=== PATIENT | male | born 1935 | race Caucasian/White ===

== ENCOUNTER 2018-04-03 15:26 | Outpatient (CLI) | payer OTHER ==
--- NOTE | 2018-04-06 09:19 | Ultrasound Report ---
EXAM: RENAL ULTRASOUND EXAM DATE: 04/03/2018 05:06 PM. CLINICAL HISTORY: History of bladder outlet obstruction, stage G3B chronic kidney disease. COMPARISON: 09/17/2017. TECHNIQUE: Real-time scanning was performed with static images obtained. FINDINGS: Right Kidney: 9.5 x 3.5 x 4.1 cm. Increased renal echotexture. No hydronephrosis. Arising from the an terior right kidney is a 6 x 5.3 x 5.4 cm exophytic cyst. No renal calculi. Smaller lower pole 1.3 x 1.1 cm cyst is also present as well as a smaller cyst measuring 0.8 x 0.8 cm in the mid lower pole. N o solid renal masses. Left Kidney: 10.4 x 4.7 x 4.0 cm. Increase in echotexture. No hydronephrosis. Several cysts are seen in the left kidney, the largest in the mid left kidney measuring 0.9 x 0.8 x 0.7 cm and 0.7 x 0.5 cm. Several echogenic foci are seen in the left kidney possibly nonobstructing calculi or parenchymal ca lcifications. No solid renal masses are definitively seen. Extrarenal pelvis is seen on the left. Incidentally noted in the right lobe of the liver are several cysts, the largest of which appears com plex with septations measuring up to 3.4 cm. Bladder: Bilateral jets seen. The prevoid bladder volume was 165.8 cc. The postvoid bladder volume wa s 104 cc. Other: Prostate gland is present with a total volume of 76.4 cc with numerous calcifications. There m ay be a diverticulum along the left posterior bladder, a hypoechoic structure communicating measuring 3.1 x 1.0 x 3.5 cm versus a distal prominent left ureter. In addition, a lobular area measuring 3.6 x 2.2 cm is seen on the right along the cephalad margins of the prostate gland and base of the urinar y bladder and extending into the urinary bladder. This may represent extent of the prostate gland or a separate bladder mass. IMPRESSION: 1. Increase in renal echotexture bilaterally typically seen with underlying medical renal disease. No hydronephrosis. 2. Bilateral renal cysts, the largest in the right kidney measuring 6 cm. 3. Left renal calculi versus parenchymal calcifications. 4. Small to moderate post void urinary bladder volume residual. 5. 3.6 cm lobular soft tissue structure along the right base of the urinary bladder, which may repres ent extent of the prostate gland into the base of the urinary bladder, prostate gland mass versus uri nary bladder mass. Dedicated cystoscopy or CT IVP recommended for further detail. 6. Prostate gland enlargement. [facility] Referring Provider Line: [phone] SITE ID: [id number]
== END 2018-04-03 15:27 | disposition home or self-care (01) ==
LOC: DI 15:26
PROVIDERS: ATTEND Internal Medicine Nephrology
DX: N18.3 Chronic kidney disease, stage 3 (moderate) (principal); Q61.02 Congenital multiple renal cysts
CPT/HCPCS: 76770

== ENCOUNTER 2019-01-27 10:48 | Inpatient (IN) | payer MEDICARE, OTHER ==
[2019-01-27] MEDS ORDERED: SODIUM CHLORIDE FLUSH 0.9% 10 ML SYRINGE IVP PRN (10:55)
[2019-01-27] MEDS ORDERED: ONDANSETRON 4 MG/2 ML VIAL IVP PRN (10:55)
[2019-01-27] MEDS ORDERED: ACETAMINOPHEN 325 MG TABLET PO PRN (10:55)
[2019-01-27 13:39] LABS: BASOPHILS % (AUTO) 0.6 %; EOSINOPHILS # (AUTO) 0.2 10^3/uL (0.0-0.7); EOSINOPHILS % (AUTO) 4.9 %; HGB - HEMOGLOBIN 7.3 g/dL (14.0-18.0); LYMPHOCYTES # (AUTO) 0.7 10^3/uL (1.5-3.5); MEAN CORPUSCULAR HEMOGLOBIN 36.2 pg (27.0-31.0); MEAN CORPUSCULAR HGB CONC 34.4 g/dL (32.0-36.0); MEAN CORPUSCULAR VOLUME 105.1 fL (80.0-94.0); MONOCYTES # (AUTO) 0.3 10^3/uL (0.0-1.0); MONOCYTES % (AUTO) 8.7 %; NEUTROPHILS # (AUTO) 2.4 10^3/uL (1.5-6.6); NEUTROPHILS % (AUTO) 66.8 %; PLT - PLATELET COUNT 194 10^3/uL (130-450); RED BLOOD COUNT 2.02 10^6/uL (4.70-6.10); RED CELL DISTRIBUTION WIDTH 14.6 % (12.0-15.0); WHITE BLOOD COUNT 3.6 x10^3/uL (4.8-10.8)
[2019-01-27 13:51] LABS: ALBUMIN 3.7 g/dL (3.2-5.5); ALBUMIN/GLOBULIN RATIO 1.6 (1.0-2.2); BILIRUBIN,TOTAL 0.8 mg/dL (0.2-1.0); CALCIUM 9.2 mg/dL (8.5-10.3); CREATININE 2.2 mg/dL (0.6-1.2)
--- NOTE | 2019-01-27 14:02 | HISTORY & PHYSICAL EXAMINATION ---
Chief Complaint - Chief Complaint Chief Complaint: black stool History of Present Illness - Admitted From Admitted From:: directly from Dr. Melton's office - History of Present Illness HPI Comment/Other: is 83-yrs-old male with a PMH history of GI bleeding, HTN, CKD, kidney stone, who present ER complain of black stool. Pt report he had about 5 days black stool. he report he tried as possible to avoid to see any doctor for his whole life. He report except his sleep pill he did not take any meds, no Ibuprofen, no ASA, no blood thinner. He report he did drink 3 cups of alcohol daily. He report he never smokes cigarette in his whole life. He denies abdominal pain, nausea, vomiting or diarrhea. He denies chest pain, shortness of breath, pre-syncope or syncope, dizziness, shortness of breath. Pt state " I do not feel bad at all, it is my primary care doctor send me to here." he state because of his black stool, he visited his PCP Dr. Melton. Then Dr. Melton directly sent him to here. REENTTA elizabeth, Dr. Willis, is notified. Dr. Willis would like pt is NPO now. Pt may have EGD today. Pt request DNR for his code status. History - Past Medical History Cardiovascular: reports: Hypertension GI: reports: GI bleed : reports: Kidney stones - Past Surgical History General: reports: Colonoscopy - Family & Social History Social History Notes: pt report he drink alcohol daily, denies cigarette smoking or drug abuse. Meds/Allgy - Home Medications Home Medications: Ambulatory Orders Medication Instructions Recorded Confirmed Zolpidem [Ambien] 5 mg PO HS PRN 01/27/19 01/27/19 - Allergies Allergies/Adverse Reactions: Allergies Allergy/AdvReac Type Severity Reaction Status Date / Time Penicillins Allergy Unknown Verified 09/08/14 07:36 Review of Systems - Constitutional Constitutional: denies: Fatigue, Fever, Chills, Malaise, Weakness, Poor appetite, Diaphoresis, Night sweats - Eyes Eyes: denies: Pain, Irritation, Amaurosis, Blurred vision, Spots in vision, Field loss, Vision loss, Dipolpia - Ears, Nose & Throat Ears, Nose & Throat: denies: Ear pain, Hearing loss, Hearing aids, Vertigo, Nasal pain, Nasal discharge, Nosebleeds, Nasal congestion, Dentures, Sore throat, Hoarseness, Mouth lesions, Bleeding gums - Cardiovascular Cariovascular: denies: Irregular heart rate, Palpitations, Chest pain, Edema, Lightheadedness, Syncope, Exertional dyspnea, Decr. exercise tolerance - Respiratory Respiratory: denies: Cough, Sputum production, Wheezing, Snoring, Hemoptysis, Orthopnea, SOB at rest, SOB with exertion - Gastrointestinal Gastrointestinal: reports: Black stools. denies: Abdominal pain, Abdominal distention, Diarrhea, Change in bowel habits, Rectal bleeding, Bloody stools, Nausea, Vomiting, Bile emesis, [place] blood emesis, Coffee grounds emesis, Reflux/heartburn, Bloating, Poor appetite - Genitourinary Genitourinary: denies: Dysuria, Frequency, Urgency, Hematuria, Incontinence, Flank pain, Nocturia, Urethral discharge - Musculoskeletal Musculoskeletal: denies: Muscle pain, Back pain, Muscle aches, Stiffness, Limited range of motion, Muscle weakness, Gout, Joint pain - Integumentary Integumentary: denies: Rash, Pruritis, Lesions, Dryness, Lumps, Acne, Pigment changes, Nail changes - Neurological Neurological: denies: General weakness, Focal weakness, Headache, Dizziness, Numbness, Memory problems, Pre-existing deficit, Abnormal gait, Seizures, Incoordination, Slurred speech - Psychiatric Psychiatric: denies: Depression, Anxiety, Suicidal, Delusions, Hallucinations, Homicidal - Endocrine Endocrine: denies: Polyuria, Polydypsia, Polyphagia, Intolerance to cold - Hematologic/Lymphatic Hematologic/Lymphatic: denies: Anemia, Bruising, Petechiae, Blood clots, Lymphadenopathy, Bleeding tendencies, Recurrent infections Prior Level of Functionality: pt is living alone and independent Exam - Vital Signs Reviewed Vital Signs: Yes Vital Signs: Vital Signs x48h Temp Pulse Resp BP Pulse Ox 01/27/19 13:33 37.5 C 100 18 135/77 H 100 - Physical Exam General Appearance: positive: No acute distress, Alert. negative: Lethargic Eyes Bilateral: positive: Normal inspection, PERRL, No lid inflammation, Conjunctivae nml ENT: positive: ENT inspection nml, Pharynx nml, No signs of dehydration. negative: Purulent nasal drainage, Pharyngeal erythema, Oral lesions Neck: positive: Nml inspection, Thyroid nml, No JVD, Trachea midline. negative: Thyromegaly, Lymphadenopathy (R), Lymphadenopathy (L), Stiff neck, Swelling/bruising, Tracheal deviation Respiratory: positive: Chest non-tender, No respiratory distress, Breath sounds nml. negative: Wheezes, Rales, Rhonchi Cardiovascular: positive: Regular rate & rhythm, No murmur, No gallop. negative: Irregularly irregular, Extrasystoles, Tachycardia, Bradycardia, JVD present, Systolic murmur, Diastolic murmur Peripheral Pulses: positive: 2+ Abdomen: positive: Non-tender, No organomegaly, Nml bowel sounds, No distention. negative: Tenderness, Guarding, Rebound Back: positive: Nml inspection. negative: CVA tenderness (R), CVA tenderness (L) Skin: positive: Color nml, No rash, Warm, Dry. negative: Cyanosis, Diaphoresis, Pallor Extremities: positive: Non-tender, Full ROM, Nml appearance. negative: Calf tenderness, Joint swelling, Flaquito's sign/cords Neurologic/Psychiatric: positive: Oriented x3, Sensation nml, Mood/affect nml. negative: Weakness, Sensory loss, Facial droop, Slurred/abnml speech, Depressed mood/affect Sepsis Event Note (H) - Evaluation Current Stage of Sepsis: Ruled out Conclusion/Plan - Problem List (1) Black stool Conclusion/Plan: pt report black stool for 5 days, pt's HGB is 7.3 from previous 14 at 2014. consult with GI surgeon, pt may EGD done today afternoon per surgeon, will followup NPO and IVF of NS now (2) Anemia Conclusion/Plan: pt has HGB 7.3, it is likely from his acute blood loss. pt seems asymptomatic of anemia. cross match, transfusion of blood as needed H&H to check HGB status (3) Renal insufficiency Conclusion/Plan: today pt's creatinine is 2.2, stage 4. pt has hx of renal insufficiency IVF of NS gently lab monitor (4) Dehydration Conclusion/Plan: pt present hydration, dry mouth IVF of D5 1/2 NS continue lab monitor (5) HTN (hypertension) Conclusion/Plan: pt has hx of HTN, but now he is no home BP medications. stable now. vital monitor (6) Do not intubate, cardiopulmonary resuscitation (CPR)-only code status Conclusion/Plan: pt clear state he will choose DNR - Lab Results Fish Bones: 01/27/19 13:20 01/27/19 13:20 Core Measures - Anticipated LOS I expect patient to be DC'd or transferred within 96 hours.: Yes - DVT/VTE - Prophylaxis VTE/DVT Device ordered at admit?: Yes VTE/DVT Prophylaxis med ordered at admit?: Yes
[2019-01-27] MEDS: SODIUM CHLORIDE FLUSH 0.9% 10 ML SYRINGE IVP SCH ×3 (14:26→21:48)
[2019-01-27] MEDS: PANTOPRAZOLE 40 MG VIAL IVP SCH ×2 (14:28→21:48)
[2019-01-27] MEDS: DEXTROSE 5%-0.45% NACL 1,000 ML IV SCH (14:31)
[2019-01-27 20:23] LABS: HGB - HEMOGLOBIN 7.1 g/dL (14.0-18.0)
[2019-01-27] MEDS: ZOLPIDEM 5 MG TABLET PO PRN (23:52)
[2019-01-28] MEDS: DEXTROSE 5%-0.45% NACL 1,000 ML IV SCH (00:19)
[2019-01-28 05:59] LABS: BASOPHILS % (AUTO) 0.6 %; EOSINOPHILS # (AUTO) 0.2 10^3/uL (0.0-0.7); EOSINOPHILS % (AUTO) 8.5 %; LYMPHOCYTES # (AUTO) 0.6 10^3/uL (1.5-3.5); LYMPHOCYTES % (AUTO) 23.3 %; MEAN CORPUSCULAR HEMOGLOBIN 36.2 pg (27.0-31.0); MEAN CORPUSCULAR HGB CONC 33.9 g/dL (32.0-36.0); MEAN CORPUSCULAR VOLUME 106.7 fL (80.0-94.0); MEAN PLATELET VOLUME 8.3 fL (7.4-11.4); MONOCYTES # (AUTO) 0.3 10^3/uL (0.0-1.0); MONOCYTES % (AUTO) 9.8 %; NEUTROPHILS # (AUTO) 1.6 10^3/uL (1.5-6.6); NEUTROPHILS % (AUTO) 57.8 %; PLT - PLATELET COUNT 181 10^3/uL (130-450); RED BLOOD COUNT 1.75 10^6/uL (4.70-6.10); RED CELL DISTRIBUTION WIDTH 15.2 % (12.0-15.0); WHITE BLOOD COUNT 2.8 x10^3/uL (4.8-10.8)
[2019-01-28 06:16] LABS: HGB - HEMOGLOBIN 6.3 g/dL (14.0-18.0)
[2019-01-28 06:34] LABS: ALBUMIN 3.3 g/dL (3.2-5.5); ALBUMIN/GLOBULIN RATIO 1.6 (1.0-2.2); BILIRUBIN,TOTAL 0.8 mg/dL (0.2-1.0); CALCIUM 8.5 mg/dL (8.5-10.3); CREATININE 2.3 mg/dL (0.6-1.2); PLATELET ESTIMATE, MANUAL NORMAL (130-450,000) (NORMAL); TOTAL PROTEIN 5.4 g/dL (6.7-8.2)
[2019-01-28] MEDS: THIAMINE 100 MG TABLET PO SCH (08:24)
[2019-01-28] MEDS: PRENATAL VITAMIN TABLET PO SCH (08:24)
[2019-01-28] MEDS: SODIUM CHLORIDE FLUSH 0.9% 10 ML SYRINGE IVP SCH ×3 (08:24→23:45)
[2019-01-28] MEDS: PANTOPRAZOLE 40 MG VIAL IVP SCH ×2 (08:24→21:28)
[2019-01-28] MEDS: POLYETHYLENE GLYCOL 3350 17 GM PACKET PO SCH (08:33)
--- NOTE | 2019-01-28 09:13 | CONSULTATION NOTE ---
Referring Provider Consult Date: 01/27/19 Chief Complaint - Chief Complaint Chief Complaint: melena History of Present Illness - History of Present Illness HPI Comment/Other: 83 yo man complaining of 1 week of melena, fatigue, weakness. Drinks daily. Normal colonoscopy 1-2 years ago. Never EGD. History - Past Medical History Cardiovascular: reports: Hypertension GI: reports: GI bleed : reports: Kidney stones - Past Surgical History General: reports: Colonoscopy - Family & Social History Social History Notes: pt report he drink alcohol daily, denies cigarette smoking or drug abuse. Meds/Allgy - Home Medications Home Medications: Ambulatory Orders Medication Instructions Recorded Confirmed Zolpidem [Ambien] 5 mg PO HS PRN 01/27/19 01/27/19 - Allergies Allergies/Adverse Reactions: Allergies Allergy/AdvReac Type Severity Reaction Status Date / Time Penicillins Allergy Unknown Verified 09/08/14 07:36 Review of Systems - Constitutional Constitutional: reports: Fatigue - Gastrointestinal Gastrointestinal: reports: Black stools Exam - Vital Signs Vital Signs: Vital Signs x48h Temp Pulse Pulse Resp BP BP Pulse Ox 01/28/19 09:06 36.7 C 85 18 115/63 01/28/19 08:56 36.7 C 85 18 115/63 96 01/28/19 08:30 36.9 C 96 19 114/73 99 01/28/19 04:18 36.7 C 87 17 122/65 100 - Physical Exam General Appearance: positive: No acute distress Eyes Bilateral: positive: Normal inspection ENT: positive: ENT inspection nml Respiratory: positive: Chest non-tender Back: positive: Nml inspection Skin: positive: Color nml Conclusion/Plan - Diagnosis Diagnosis: GIB - Plan Plan: Counselled pt to have an EGD to look for source of bleeding. He is hesitant to have a procedure and would rather wait to see a trend in H/Hs to see if he is still bleeding. - Lab Results Fish Bones: 01/28/19 05:25 01/28/19 05:25
--- NOTE | 2019-01-28 09:15 | PROVIDER PROGRESS NOTE ---
Subjective - Prog Note Date Prog Note Date: 01/28/19 Prog Note Time: 09:13 - Subjective Pt reports feeling: No change (Pt had another melenotic BM overnight.) Objective - Vital Signs/Intake & Output Vital Signs: Vital Signs x48h Temp Pulse Pulse Resp BP BP Pulse Ox 01/28/19 09:06 36.7 C 85 18 115/63 01/28/19 08:56 36.7 C 85 18 115/63 96 01/28/19 08:30 36.9 C 96 19 114/73 99 01/28/19 04:18 36.7 C 87 17 122/65 100 Intake & Output: Intake & Output 01/25/19 01/26/19 01/27/19 01/28/19 23:59 23:59 23:59 23:59 Intake Total 800 1230 Balance 800 1230 - Objective General Appearance: positive: No acute distress Eyes Bilateral: positive: Normal inspection ENT: positive: ENT inspection nml Neck: positive: Nml inspection Respiratory: positive: Chest non-tender Abdomen: positive: Non-tender Back: positive: Nml inspection - Lab Results Fish Bones: 01/28/19 05:25 01/28/19 05:25 Other Labs: Lab Results x24hrs 01/28/19 01/28/19 01/28/19 Range/Units 05:25 05:25 05:25 WBC 2.8 L (4.8-10.8) x10^3/uL RBC 1.75 L (4.70-6.10) 10^6/uL Hgb 6.3 L* (14.0-18.0) g/dL Hct 18.7 L* (42.0-52.0) % MCV 106.7 H (80.0-94.0) fL MCH 36.2 H (27.0-31.0) pg MCHC 33.9 (32.0-36.0) g/dL RDW 15.2 H (12.0-15.0) % Plt Count 181 (130-450) 10^3/uL MPV 8.3 (7.4-11.4) fL Neut # (Auto) 1.6 (1.5-6.6) 10^3/uL Lymph # (Auto) 0.6 L (1.5-3.5) 10^3/uL [place] # (Auto) 0.3 (0.0-1.0) 10^3/uL Eos # (Auto) 0.2 (0.0-0.7) 10^3/uL Baso # (Auto) 0.0 (0.0-0.1) 10^3/uL Absolute Nucleated RBC 0.00 x10^3/uL Nucleated RBC % 0.1 /100WBC Manual Slide Review Indicated Platelet Estimate NORMAL (130-450,000) (NORMAL) RBC Morph Micro Appear 1+ MACROCYTOSIS (NORMAL) Sodium 135 (135-145) mmol/L Potassium 3.4 L (3.5-5.0) mmol/L Chloride 109 (101-111) mmol/L Carbon Dioxide 19 L (21-32) mmol/L Anion Gap 7.0 (6-13) BUN 42 H (6-20) mg/dL Creatinine 2.3 H (0.6-1.2) mg/dL Estimated GFR (MDRD) 27 L (>89) Glucose 112 H (70-100) mg/dL Calcium 8.5 (8.5-10.3) mg/dL Magnesium (1.7-2.8) mg/dL Total Bilirubin 0.8 (0.2-1.0) mg/dL AST 25 (10-42) IU/L ALT 27 (10-60) IU/L Alkaline Phosphatase 32 L (42-121) IU/L Troponin I (<0.49) ng/mL Total Protein 5.4 L (6.7-8.2) g/dL Albumin 3.3 (3.2-5.5) g/dL Globulin 2.1 (2.1-4.2) g/dL Albumin/Globulin Ratio 1.6 (1.0-2.2) TSH 3.16 (0.34-5.60) uIU/mL Blood Type Antibody Screen Crossmatch IS Only 01/27/19 01/27/19 01/27/19 Range/Units 20:17 13:20 13:20 WBC (4.8-10.8) x10^3/uL RBC (4.70-6.10) 10^6/uL Hgb 7.1 L (14.0-18.0) g/dL Hct 20.4 L (42.0-52.0) % MCV (80.0-94.0) fL MCH (27.0-31.0) pg MCHC (32.0-36.0) g/dL RDW (12.0-15.0) % Plt Count (130-450) 10^3/uL MPV (7.4-11.4) fL Neut # (Auto) (1.5-6.6) 10^3/uL Lymph # (Auto) (1.5-3.5) 10^3/uL [place] # (Auto) (0.0-1.0) 10^3/uL Eos # (Auto) (0.0-0.7) 10^3/uL Baso # (Auto) (0.0-0.1) 10^3/uL Absolute Nucleated RBC x10^3/uL Nucleated RBC % /100WBC Manual Slide Review Platelet Estimate (NORMAL) RBC Morph Micro Appear (NORMAL) Sodium (135-145) mmol/L Potassium (3.5-5.0) mmol/L Chloride (101-111) mmol/L Carbon Dioxide (21-32) mmol/L Anion Gap (6-13) BUN (6-20) mg/dL Creatinine (0.6-1.2) mg/dL Estimated GFR (MDRD) (>89) Glucose (70-100) mg/dL Calcium (8.5-10.3) mg/dL Magnesium (1.7-2.8) mg/dL Total Bilirubin (0.2-1.0) mg/dL AST (10-42) IU/L ALT (10-60) IU/L Alkaline Phosphatase (42-121) IU/L Troponin I < 0.04 (<0.49) ng/mL Total Protein (6.7-8.2) g/dL Albumin (3.2-5.5) g/dL Globulin (2.1-4.2) g/dL Albumin/Globulin Ratio (1.0-2.2) TSH (0.34-5.60) uIU/mL Blood Type O POSITIVE Antibody Screen NEGATIVE Crossmatch IS Only See Detail 01/27/19 01/27/19 Range/Units 13:20 13:20 WBC 3.6 L (4.8-10.8) x10^3/uL RBC 2.02 L (4.70-6.10) 10^6/uL Hgb 7.3 L (14.0-18.0) g/dL Hct 21.3 L (42.0-52.0) % MCV 105.1 H (80.0-94.0) fL MCH 36.2 H (27.0-31.0) pg MCHC 34.4 (32.0-36.0) g/dL RDW 14.6 (12.0-15.0) % Plt Count 194 (130-450) 10^3/uL MPV 8.0 (7.4-11.4) fL Neut # (Auto) 2.4 (1.5-6.6) 10^3/uL Lymph # (Auto) 0.7 L (1.5-3.5) 10^3/uL [place] # (Auto) 0.3 (0.0-1.0) 10^3/uL Eos # (Auto) 0.2 (0.0-0.7) 10^3/uL Baso # (Auto) 0.0 (0.0-0.1) 10^3/uL Absolute Nucleated RBC 0.01 x10^3/uL Nucleated RBC % 0.2 /100WBC Manual Slide Review Platelet Estimate (NORMAL) RBC Morph Micro Appear (NORMAL) Sodium 135 (135-145) mmol/L Potassium 3.8 (3.5-5.0) mmol/L Chloride 106 (101-111) mmol/L Carbon Dioxide 18 L (21-32) mmol/L Anion Gap 11.0 (6-13) BUN 49 H (6-20) mg/dL Creatinine 2.2 H (0.6-1.2) mg/dL Estimated GFR (MDRD) 29 L (>89) Glucose 103 H (70-100) mg/dL Calcium 9.2 (8.5-10.3) mg/dL Magnesium 2.0 (1.7-2.8) mg/dL Total Bilirubin 0.8 (0.2-1.0) mg/dL AST 34 (10-42) IU/L ALT 34 (10-60) IU/L Alkaline Phosphatase 32 L (42-121) IU/L Troponin I (<0.49) ng/mL Total Protein 6.0 L (6.7-8.2) g/dL Albumin 3.7 (3.2-5.5) g/dL Globulin 2.3 (2.1-4.2) g/dL Albumin/Globulin Ratio 1.6 (1.0-2.2) TSH (0.34-5.60) uIU/mL Blood Type Antibody Screen Crossmatch IS Only Sepsis Event Note (H) - Evaluation Current Stage of Sepsis: Ruled out Assessment/Plan - Problem List (1) Anemia Impression: Pt agreeable to an EGD this morning in light of the melena overnight and H/H trending down.
--- NOTE | 2019-01-28 15:53 | PROVIDER PROGRESS NOTE ---
Subjective - Prog Note Date Prog Note Date: 01/28/19 - Subjective Subjective: pt's HGB is graduate down to 6.3. pt agree to have EGD. pt denies chest pain, shortness of breath, fever, chill, palpitation. pt agree blood transfusion. pt is still in blood transfusion. EGD is still in the pending, so far not done yet. Current Medications - Current Medications Current Medications: Active Medications Acetaminophen (Tylenol) 650 mg PO Q4HR PRN PRN Reason: Pain 1 to 4 Dextrose/Sodium Chloride (D5.45ns) 1,000 mls @ 100 mls/hr IV .Q10H [facility] Ondansetron HCl (Zofran Inj) 4 mg IVP Q6HR PRN PRN Reason: Nausea / Vomiting Pantoprazole Sodium (Protonix) 40 mg IVP BID [facility] Last Admin: 01/28/19 08:24 Dose: 40 mg Polyethylene Glycol (Miralax) 17 gm PO DAILY [facility] Last Admin: 01/28/19 08:33 Dose: 17 gm Multivit/Folic Acid/Iron (Trinatal Rx 1) 1 tab PO DAILYWM [facility] Last Admin: 01/28/19 08:24 Dose: 1 tab Sodium Chloride (Normal Saline Flush 0.9%) 10 ml IVP PRN PRN PRN Reason: NEEDED PER PROVIDER ORDERS Sodium Chloride (Normal Saline Flush 0.9%) 10 ml IVP 0100,0900,1700 [facility] Last Admin: 01/28/19 08:24 Dose: 10 ml Thiamine HCl (Vitamin B-1) 100 mg PO DAILY [facility] Last Admin: 01/28/19 08:24 Dose: 100 mg Zolpidem Tartrate (Ambien) 5 mg PO HS PRN PRN Reason: Insomnia Last Admin: 01/27/19 23:52 Dose: 5 mg Zolpidem [Ambien] 5 mg PO HS PRN 01/27/19 Objective - Vital Signs/Intake & Output Reviewed Vital Signs: Yes Vital Signs: Vital Signs x48h Temp Pulse Pulse Resp BP BP Pulse Ox 01/28/19 13:22 37.0 C 77 16 126/38 L 01/28/19 13:04 37.0 C 93 19 140/76 H 01/28/19 12:55 37 C 93 16 130/75 01/28/19 12:51 37.0 C 98 16 130/75 96 01/28/19 12:06 37.0 C 93 19 140/76 H 96 01/28/19 09:20 37.1 C 93 18 124/67 01/28/19 09:06 36.7 C 85 18 115/63 01/28/19 08:56 36.7 C 85 18 115/63 96 01/28/19 08:30 36.9 C 96 19 114/73 99 Intake & Output: Intake & Output 01/25/19 01/26/19 01/27/19 01/28/19 23:59 23:59 23:59 23:59 Intake Total 800 2580 Balance 800 2580 - Objective General Appearance: positive: No acute distress, Alert. negative: Lethargic Eyes Bilateral: positive: Normal inspection, PERRL, No lid inflammation, Conjunctivae nml ENT: positive: ENT inspection nml, Pharynx nml, No signs of dehydration. negative: Purulent nasal drainage, Pharyngeal erythema, Oral lesions Neck: positive: Nml inspection, Thyroid nml, No JVD, Trachea midline. negative: Thyromegaly, Lymphadenopathy (R), Lymphadenopathy (L), Stiff neck, Swelling/bruising, Tracheal deviation Respiratory: positive: Chest non-tender, No respiratory distress, Breath sounds nml. negative: Wheezes, Rales, Rhonchi Cardiovascular: positive: Regular rate & rhythm, No murmur, No gallop. negative: Irregularly irregular, Extrasystoles, Tachycardia, Bradycardia, JVD present, Systolic murmur, Diastolic murmur Peripheral Pulses: 2+ Radial (R), 2+ Radial (L), 2+ Dorsalis pedis (R), 2+ Dorsalis pedis (L) Abdomen: positive: Non-tender, No organomegaly, Nml bowel sounds, No distention. negative: Tenderness, Guarding, Rebound Back: positive: Nml inspection. negative: CVA tenderness (R), CVA tenderness (L) Skin: positive: Color nml, No rash, Warm, Dry. negative: Cyanosis, Diaphoresis, Pallor Extremities: positive: Non-tender, Full ROM, Nml appearance. negative: Calf tenderness, Joint swelling, Flaquito's sign/cords Neurologic/Psychiatric: positive: Oriented x3, Sensation nml, Mood/affect nml. negative: Weakness, Sensory loss, Facial droop, Slurred/abnml speech, Depressed mood/affect - Lab Results Fish Bones: 01/28/19 05:25 01/28/19 05:25 Other Labs: Lab Results x24hrs 01/28/19 01/28/19 01/28/19 Range/Units 05:25 05:25 05:25 WBC 2.8 L (4.8-10.8) x10^3/uL RBC 1.75 L (4.70-6.10) 10^6/uL Hgb 6.3 L* (14.0-18.0) g/dL Hct 18.7 L* (42.0-52.0) % MCV 106.7 H (80.0-94.0) fL MCH 36.2 H (27.0-31.0) pg MCHC 33.9 (32.0-36.0) g/dL RDW 15.2 H (12.0-15.0) % Plt Count 181 (130-450) 10^3/uL MPV 8.3 (7.4-11.4) fL Neut # (Auto) 1.6 (1.5-6.6) 10^3/uL Lymph # (Auto) 0.6 L (1.5-3.5) 10^3/uL [place] # (Auto) 0.3 (0.0-1.0) 10^3/uL Eos # (Auto) 0.2 (0.0-0.7) 10^3/uL Baso # (Auto) 0.0 (0.0-0.1) 10^3/uL Absolute Nucleated RBC 0.00 x10^3/uL Nucleated RBC % 0.1 /100WBC Manual Slide Review Indicated Platelet Estimate NORMAL (130-450,000) (NORMAL) RBC Morph Micro Appear 1+ MACROCYTOSIS (NORMAL) Sodium 135 (135-145) mmol/L Potassium 3.4 L (3.5-5.0) mmol/L Chloride 109 (101-111) mmol/L Carbon Dioxide 19 L (21-32) mmol/L Anion Gap 7.0 (6-13) BUN 42 H (6-20) mg/dL Creatinine 2.3 H (0.6-1.2) mg/dL Estimated GFR (MDRD) 27 L (>89) Glucose 112 H (70-100) mg/dL Calcium 8.5 (8.5-10.3) mg/dL Total Bilirubin 0.8 (0.2-1.0) mg/dL AST 25 (10-42) IU/L ALT 27 (10-60) IU/L Alkaline Phosphatase 32 L (42-121) IU/L Total Protein 5.4 L (6.7-8.2) g/dL Albumin 3.3 (3.2-5.5) g/dL Globulin 2.1 (2.1-4.2) g/dL Albumin/Globulin Ratio 1.6 (1.0-2.2) TSH 3.16 (0.34-5.60) uIU/mL Blood Type Antibody Screen Crossmatch IS Only 01/27/19 01/27/19 Range/Units 20:17 13:20 WBC (4.8-10.8) x10^3/uL RBC (4.70-6.10) 10^6/uL Hgb 7.1 L (14.0-18.0) g/dL Hct 20.4 L (42.0-52.0) % MCV (80.0-94.0) fL MCH (27.0-31.0) pg MCHC (32.0-36.0) g/dL RDW (12.0-15.0) % Plt Count (130-450) 10^3/uL MPV (7.4-11.4) fL Neut # (Auto) (1.5-6.6) 10^3/uL Lymph # (Auto) (1.5-3.5) 10^3/uL [place] # (Auto) (0.0-1.0) 10^3/uL Eos # (Auto) (0.0-0.7) 10^3/uL Baso # (Auto) (0.0-0.1) 10^3/uL Absolute Nucleated RBC x10^3/uL Nucleated RBC % /100WBC Manual Slide Review Platelet Estimate (NORMAL) RBC Morph Micro Appear (NORMAL) Sodium (135-145) mmol/L Potassium (3.5-5.0) mmol/L Chloride (101-111) mmol/L Carbon Dioxide (21-32) mmol/L Anion Gap (6-13) BUN (6-20) mg/dL Creatinine (0.6-1.2) mg/dL Estimated GFR (MDRD) (>89) Glucose (70-100) mg/dL Calcium (8.5-10.3) mg/dL Total Bilirubin (0.2-1.0) mg/dL AST (10-42) IU/L ALT (10-60) IU/L Alkaline Phosphatase (42-121) IU/L Total Protein (6.7-8.2) g/dL Albumin (3.2-5.5) g/dL Globulin (2.1-4.2) g/dL Albumin/Globulin Ratio (1.0-2.2) TSH (0.34-5.60) uIU/mL Blood Type O POSITIVE Antibody Screen NEGATIVE Crossmatch IS Only See Detail ABX Reporting Has patient been on IV antibiotics over the past 48 hours?: No Sepsis Event Note (H) - Evaluation Current Stage of Sepsis: Ruled out Assessment/Plan - Problem List (1) Black stool Impression: 01/28 pt has no bowel movement today, but his HGB continue graduate down to 6.3. pt agree to have EGD and blood transfusion. followup EGD, consult with surgeon continue PPI IV continue H&H pt report black stool for 5 days, pt's HGB is 7.3 from previous 14 at 2013. consult with GI surgeon, pt may EGD done today afternoon per surgeon, will followup NPO and IVF of NS now (2) Anemia Conclusion/Plan: 01/28 HGB is 6.3. pt agree to have blood transfusion continue H&H check B12 pt has HGB 7.3, it is likely from his acute blood loss. pt seems asymptomatic of anemia. cross match, transfusion of blood as needed H&H to check HGB status (3) MADDI Conclusion/Plan: 01/28, creatinine 2.3, slight worsen. acute on chronic CKD pt will have two units of blood, continue IVF of NS lab monitor today pt's creatinine is 2.2, stage 4. pt has hx of renal insufficiency IVF of NS gently lab monitor (4) Dehydration Conclusion/Plan: pt present hydration, dry mouth IVF of D5 1/2 NS continue lab monitor (5) HTN (hypertension) Conclusion/Plan: pt has hx of HTN, but now he is no home BP medications. stable now. vital monitor
[2019-01-28] MEDS ORDERED: DEXTROSE 5%-0.45% NACL 1,000 ML IV SCH (16:00)
--- NOTE | 2019-01-28 16:11 | ANESTHESIA ---
Pre-Anesthesia VS, & Labs - Diagnosis Diagnosis GIB - Procedure EGD Vital Signs: Temp Pulse Resp BP Pulse Ox 37.0 C 77 16 126/38 L 96 01/28/19 13:22 01/28/19 13:22 01/28/19 13:22 01/28/19 13:22 01/28/19 12:51 Height 5 ft 6.5 in Weight (kg) 65 kg Body Mass Index 22.8 - NPO >8 hours - Lab Results Current Lab Results: Laboratory Tests 01/28/19 05:25: TSH 3.16 01/28/19 05:25: Sodium 135, Potassium 3.4 L, Chloride 109, Carbon Dioxide 19 L, Anion Gap 7.0, BUN 42 H, Creatinine 2.3 H, Estimated GFR (MDRD) 27 L, Glucose 112 H, Calcium 8.5, Total Bilirubin 0.8, AST 25, ALT 27, Alkaline Phosphatase 32 L, Total Protein 5.4 L, Albumin 3.3, Globulin 2.1, Albumin/Globulin Ratio 1.6 01/28/19 05:25: WBC 2.8 L, RBC 1.75 L, Hgb 6.3 L*, Hct 18.7 L*, MCV 106.7 H, MCH 36.2 H, MCHC 33.9, RDW 15.2 H, Plt Count 181, MPV 8.3, Neut # (Auto) 1.6, Lymph # (Auto) 0.6 L, [place] # (Auto) 0.3, Eos # (Auto) 0.2, Baso # (Auto) 0.0, Absolute Nucleated RBC 0.00, Nucleated RBC % 0.1, Manual Slide Review Indicated, Platelet Estimate NORMAL (130-450,000), RBC Morph Micro Appear 1+ MACROCYTOSIS 01/27/19 20:17: Hgb 7.1 L, Hct 20.4 L 01/27/19 13:20: Blood Type O POSITIVE, Antibody Screen NEGATIVE, Crossmatch IS Only See Detail 01/27/19 13:20: Troponin I < 0.04 01/27/19 13:20: Sodium 135, Potassium 3.8, Chloride 106, Carbon Dioxide 18 L, Anion Gap 11.0, BUN 49 H, Creatinine 2.2 H, Estimated GFR (MDRD) 29 L, Glucose 103 H, Calcium 9.2, Magnesium 2.0, Total Bilirubin 0.8, AST 34, ALT 34, Alkaline Phosphatase 32 L, Total Protein 6.0 L, Albumin 3.7, Globulin 2.3, Albumin/Globulin Ratio 1.6 01/27/19 13:20: WBC 3.6 L, RBC 2.02 L, Hgb 7.3 L, Hct 21.3 L, MCV 105.1 H, MCH 36.2 H, MCHC 34.4, RDW 14.6, Plt Count 194, MPV 8.0, Neut # (Auto) 2.4, Lymph # (Auto) 0.7 L, [place] # (Auto) 0.3, Eos # (Auto) 0.2, Baso # (Auto) 0.0, Absolute Nucleated RBC 0.01, Nucleated RBC % 0.2 Fish Bones: 01/28/19 05:25 01/28/19 05:25 Home Medications and Allergies Home Medications: Ambulatory Orders Zolpidem [Ambien] 5 mg PO HS PRN 01/27/19 Active Medications Acetaminophen (Tylenol) 650 mg PO Q4HR PRN PRN Reason: Pain 1 to 4 Dextrose/Sodium Chloride (D5.45ns) 1,000 mls @ 100 mls/hr IV .Q10H [facility] Ondansetron HCl (Zofran Inj) 4 mg IVP Q6HR PRN PRN Reason: Nausea / Vomiting Pantoprazole Sodium (Protonix) 40 mg IVP BID [facility] Last Admin: 01/28/19 08:24 Dose: 40 mg Polyethylene Glycol (Miralax) 17 gm PO DAILY [facility] Last Admin: 01/28/19 08:33 Dose: 17 gm Multivit/Folic Acid/Iron (Trinatal Rx 1) 1 tab PO DAILYWM [facility] Last Admin: 01/28/19 08:24 Dose: 1 tab Sodium Chloride (Normal Saline Flush 0.9%) 10 ml IVP PRN PRN PRN Reason: NEEDED PER PROVIDER ORDERS Sodium Chloride (Normal Saline Flush 0.9%) 10 ml IVP 0100,0900,1700 [facility] Last Admin: 01/28/19 08:24 Dose: 10 ml Thiamine HCl (Vitamin B-1) 100 mg PO DAILY [facility] Last Admin: 01/28/19 08:24 Dose: 100 mg Zolpidem Tartrate (Ambien) 5 mg PO HS PRN PRN Reason: Insomnia Last Admin: 01/27/19 23:52 Dose: 5 mg Zolpidem [Ambien] 5 mg PO HS PRN 01/27/19 Allergies/Adverse Reactions: Allergies Allergy/AdvReac Type Severity Reaction Status Date / Time Penicillins Allergy Unknown Verified 09/08/14 07:36 Anes History & Medical History - Anesthetic History Anesthesia Complications: reports: No previous complications Family history of Anesthesia Complications: Denies Family history of Malignant Hyperthermia: Denies - Medical History Cardiovascular: reports: Hypertension Gastrointestinal: reports: GI bleed Urinary: reports: Kidney stones Smoking Status: Former smoker - Surgical History General: Colonoscopy Exam General: Alert, Oriented x3, Cooperative, No acute distress Dental: Other (caps) Mouth Openin Fingerbreadth Neck Mobility: Normal Mallampati classification: III Thyromental Distance: greater than 6 cm Respiratory: Lungs clear, Normal breath sounds, No respiratory distress, No accessory muscle use Cardiovascular: Regular rate, Normal S1, Normal S2, No murmurs Mental/Cognitive Status: Alert/Oriented X3, Normal for patient Cognitive Status: Within normal limits Plan Anesthesia Type: MAC Consent for Procedure(s) Verified and Reviewed: Yes Code Status: Attempt Resuscitation ASA classification: 3-Severe systemic disease Is this case an emergency?: No
[2019-01-28 16:15] LABS: HGB - HEMOGLOBIN 9.3 g/dL (14.0-18.0)
[2019-01-28] MEDS ORDERED: LIDO GARGLE 30 ML BOTTLE PO ONE ×2 (16:15→16:59)
[2019-01-28] MEDS: LACTATED RINGERS 1,000 ML IV SCH ×2 (16:47→23:45)
[2019-01-28] MEDS ORDERED: LACTATED RINGERS 1,000 ML IV ONE (16:57)
[2019-01-28] MEDS ORDERED: BENZOCAINE/TETRACAINE/BUTAMBEN 20 GM TOP ONE (17:00)
[2019-01-28] MEDS ORDERED: LIDOCAINE-MPF 2% 5 ML VIAL IM ONE (17:13)
[2019-01-28] MEDS ORDERED: PROPOFOL 200 MG/20 ML VIAL IVP ONE (17:13)
[2019-01-28] MEDS ORDERED: EPINEPHrine 1 MG/ML AMP IVP ONE (17:13)
--- NOTE | 2019-01-28 17:28 | IMMEDIATE POSTOPERATIVE NOTE ---
Immediate Postoperative Note - Procedure Note Procedure Date: 01/28/19 Pre-Op Diagnosis: GI bleed Procedure: EGD with epinephrine injection Post-Op Diagnosis: bleeding duodenal ulcer Primary Surgeon: shanon Anesthesia Type: MAC Complications: No complications Plan of Care: expectant
[2019-01-28] MEDS: ZOLPIDEM 5 MG TABLET PO PRN (22:07)
[2019-01-28 22:24] LABS: HGB - HEMOGLOBIN 8.9 g/dL (14.0-18.0)
[2019-01-28] MEDS ORDERED: SODIUM CHLORIDE 0.9% 1,000 ML IV SCH (23:00)
[2019-01-29] MEDS ORDERED: HALOPERIDOL 5 MG/ML VIAL IVP STA (01:43)
--- NOTE | 2019-01-29 01:57 | OPERATIVE REPORT ---
DATE OF SERVICE: 01/28/2019 Physician: Montrell Olson MD PREOPERATIVE DIAGNOSIS: Gastrointestinal bleeding. POSTOPERATIVE DIAGNOSIS: Bleeding duodenal ulcer. PROCEDURE PERFORMED: Esophagogastroduodenoscopy with epinephrine injection. INDICATIONS: Patient is an 83-year-old man who presented to the ER with a week of melena and anemia. He initially declined to have an EGD performed; however, when his H and H continued to drop in the hospital, he consented. He was taken to the OR for EGD since he had had a colonoscopy already 1-2 years ago. PROCEDURE IN DETAIL: The risks and benefits were explained to the patient. He was taken to the operating room. He was given sedation. A well lubricated endoscope was advanced into the oral cavity after a timeout was performed. This was advanced down to the second portion of the duodenum. Blood was seen in the stomach and duodenum. The endoscope was then slowly withdrawn, while lavaging. A shallow ulcer was seen in the first portion of the duodenum with a steady ooze of blood. This was injected with epinephrine and the bleeding stopped. A second shallow ulcer was seen that was well healed in the first portion of the duodenum with no evidence of bleeding. The scope was then withdrawn into the stomach. The stomach was generally inspected. No abnormalities were seen, even on retroflexion. The scope was then withdrawn into the esophagus, again, with no abnormality seen. The scope was then completely withdrawn. The patient tolerated it well. He was taken to recovery in stable condition. Instrument and lap counts were correct. SPECIMENS: None. COMPLICATIONS: None. PLAN: For the patient to have expectant management. TD: 01/28/2019 17:31 MTDD
[2019-01-29 06:17] LABS: BASOPHILS % (AUTO) 0.4 %; EOSINOPHILS # (AUTO) 0.2 10^3/uL (0.0-0.7); HGB - HEMOGLOBIN 9.1 g/dL (14.0-18.0); LYMPHOCYTES # (AUTO) 0.5 10^3/uL (1.5-3.5); LYMPHOCYTES % (AUTO) 16.7 %; MEAN CORPUSCULAR HEMOGLOBIN 34.2 pg (27.0-31.0); MEAN CORPUSCULAR HGB CONC 34.1 g/dL (32.0-36.0); MEAN CORPUSCULAR VOLUME 100.3 fL (80.0-94.0); MEAN PLATELET VOLUME 8.2 fL (7.4-11.4); MONOCYTES # (AUTO) 0.3 10^3/uL (0.0-1.0); MONOCYTES % (AUTO) 7.9 %; NEUTROPHILS # (AUTO) 2.2 10^3/uL (1.5-6.6); PLT - PLATELET COUNT 183 10^3/uL (130-450); RED BLOOD COUNT 2.65 10^6/uL (4.70-6.10); RED CELL DISTRIBUTION WIDTH 18.3 % (12.0-15.0); WHITE BLOOD COUNT 3.2 x10^3/uL (4.8-10.8)
[2019-01-29 06:44] LABS: ALBUMIN 3.3 g/dL (3.2-5.5); ALBUMIN/GLOBULIN RATIO 1.4 (1.0-2.2); BILIRUBIN,TOTAL 0.8 mg/dL (0.2-1.0); CALCIUM 8.5 mg/dL (8.5-10.3); TOTAL PROTEIN 5.6 g/dL (6.7-8.2)
[2019-01-29] MEDS ORDERED: CYANOCOBALAMIN 1,000 MCG/ML VIAL IM SCH (08:25)
[2019-01-29] MEDS: THIAMINE 100 MG TABLET PO SCH (08:53)
[2019-01-29] MEDS: PANTOPRAZOLE 40 MG VIAL IVP SCH (08:53)
[2019-01-29] MEDS: PRENATAL VITAMIN TABLET PO SCH (08:53)
[2019-01-29] MEDS: SODIUM CHLORIDE FLUSH 0.9% 10 ML SYRINGE IVP SCH (08:54)
[2019-01-29] MEDS: POLYETHYLENE GLYCOL 3350 17 GM PACKET PO SCH (08:54)
[2019-01-29] MEDS: LACTATED RINGERS 1,000 ML IV SCH (08:57)
--- NOTE | 2019-01-29 11:16 | Discharge Plan ---
Discharge Plan Disposition: 01 Home, Self Care Condition: Poor Prescriptions: Omeprazole 40 mg PO BID #20 capsule. Diet: Regular Activity Restrictions: Activity as Tolerated Shower Restrictions: No (fall precaution) Instruction Topics: Omeprazole tablets OTC, Gastric Ulcer, Kidney Disease Chronic Dc Additional Instructions or Follow Up instructions: You may followup your PCP in one week, followup [facility] surgery clinic in 4-6 weeks to check your gastric ulcer healing status. You were found to have gastric ulcer with blood in EGD procedure. After treatment, your HGB is stable. You are prescribed Omeprazole. You are advised to avoid alcohol, and keep hydration for your chronic kidney disease. Should your symptoms return or worsen, you may present ER, call 911 or your PCP for help. No Smoking: If you smoke, Please STOP! Call for help. Follow-up with: Shant Melton MD [Provider Admit Priv/Credential] -
--- NOTE | 2019-01-29 11:39 | DISCHARGE SUMMARY ---
Discharge Summary Discharge Date: 01/29/19 Discharging Provider: BATISTA Primary Care Provider: Shant Thrasher Condition at Discharge: Poor Discharge Disposition: 01 Home, Self Care Discharge Facility Name: home - DIAGNOSES Admission Diagnoses: (1) Black stool (2) Anemia (3) Renal insufficiency (4) Dehydration (5) HTN (hypertension) Discharge Diagnoses with Status of Each Condition: 1) Black stool resolved. pt state he had normal stool. pt had EGD which found pt had active gastric ulcer, and treated by surgeon. pt's HGB is stable. pt is prescribed PPI, advise to avoid alcohol and followup surgeon in 4-6 weeks. (2) Anemia HGB 9.1 stable. (3) Renal insufficiency improved. pt has hx of CKD, followup PCP for management (4) Dehydration stable, pt is advise to keep hydration for his kidney medical problem (5) HTN (hypertension) stable pt refuse to SW provide possible help for him - HPI History of Present Illness: is 83-yrs-old male with a [facility] history of GI bleeding, HTN, CKD, kidney stone, who present ER complain of black stool. Pt report he had about 5 days black stool. he report he tried as possible to avoid to see any doctor for his whole life. He report except his sleep pill he did not take any meds, no Ibuprofen, no ASA, no blood thinner. He report he did drink 3 cups of alcohol daily. He report he never smokes cigarette in his whole life. He denies abdominal pain, nausea, vomiting or diarrhea. He denies chest pain, shortness of breath, pre-syncope or syncope, dizziness, shortness of breath. Pt state " I do not feel bad at all, it is my primary care doctor send me to here." he state because of his black stool, he visited his PCP Dr. Melton. Then Dr. Melton directly sent him to here. [facility] elizabeth, Dr. Willis, is notified. Dr. Willis would like pt is NPO now. Pt may have EGD today. Pt request DNR for his code status. - CONSULTS | PROCEDURES Consultations: Dr. Olson Procedures: EGD - HOSPITAL COURSE Hospital Course: pt was admitted for GI bleed. pt had EGD done by surgeon. pt was found to have active gastric ulcer. pt is prescribed PPI. pt also was found to have Macrocytic anemia, pt was given Vitamin B12. - ALLERGIES Allergies/Adverse Reactions: Allergies Allergy/AdvReac Type Severity Reaction Status Date / Time Penicillins Allergy Unknown Verified 09/08/14 07:36 - MEDICATIONS Home Medications: Ambulatory Orders Medication Instructions Recorded Confirmed Zolpidem [Ambien] 5 mg PO HS PRN 01/27/19 01/27/19 Omeprazole 40 mg PO BID #20 capsule. 01/29/19 - PHYSICAL EXAM AT DISCHARGE General Appearance: positive: No acute distress, Alert. negative: Lethargic Eyes Bilateral: positive: Normal inspection, PERRL, No lid inflammation, Conjun ctivae nml ENT: positive: ENT inspection nml, Pharynx nml, No signs of dehydration. negative: Purulent nasal drainage, Pharyngeal erythema, Oral lesions Neck: positive: Nml inspection, Thyroid nml, No JVD, Trachea midline. negative: Thyromegaly, Lymphadenopathy (R), Lymphadenopathy (L), Swelling/bruising, Tracheal deviation Respiratory: positive: Chest non-tender, No respiratory distress, Breath sounds nml. negative: Wheezes, Rales, Rhonchi Cardiovascular: positive: Regular rate & rhythm, No murmur, No gallop. negative: Irregularly irregular, Extrasystoles, Tachycardia, Bradycardia, JVD pr esent, Systolic murmur, Diastolic murmur Peripheral Pulses: positive: 2+ Abdomen: positive: Non-tender, No organomegaly, Nml bowel sounds, No distention. negative: Tenderness, Guarding, Rebound Back: positive: Nml inspection. negative: CVA tenderness (R), CVA tenderness (L) Skin: positive: Color nml, No rash, Warm, Dry. negative: Cyanosis, Diaphoresis, Pallor Extremities: positive: Non-tender, Nml appearance. negative: Calf tenderness, Joint swelling, [place]'s sign/cords Neurologic/Psychiatric: positive: Sensation nml, Mood/affect nml. negative: Weakness, Sensory loss, Facial droop, Slurred/abnml speech, Depressed mood/affect - LABS Result Diagrams: 01/29/19 05:32 01/29/19 05:32 - SEPSIS Current Stage of Sepsis: Ruled out - FOLLOW UP Follow Up: You may followup your PCP in one week, followup [facility] surgery clinic in 4-6 weeks to check your gastric ulcer healing status. You were found to have gastric ulcer with blood in EGD procedure. After treatment, your HGB is stable. You are prescribed Omeprazole. You are advised to avoid alcohol, and keep hydration for your chronic kidney disease. Should your symptoms return or worsen, you may present ER, call 911 or your PCP for help. - TIME SPENT Time Spent in Discharge (Minutes): 60
[2019-01-29 12:05] VITALS: BP 152/74
== END 2019-01-29 12:30 | disposition home or self-care (01) | DRG 378 ==
LOC: OBS 10:55 → OBSVTOIN 01-28 15:42 → MS2 01-28 17:38
PROVIDERS: ADMIT Nurse Practitioner Gerontology; ATTEND Nurse Practitioner Gerontology
PROC: 0W3P8ZZ Control Bleeding in Gastrointestinal Tract, Via Natural or Artificial Opening Endoscopic (ICD-10-PCS; principal; 2019-01-28 15:15)
DX: K26.4 Chronic or unspecified duodenal ulcer with hemorrhage (principal); N17.9 Acute kidney failure, unspecified; D53.9 Nutritional anemia, unspecified; K92.1 Melena; E86.0 Dehydration; I10 Essential (primary) hypertension; N28.9 Disorder of kidney and ureter, unspecified; D64.9 Anemia, unspecified
CPT/HCPCS: 36415 ×2; 36430 ×2; 80053 ×2; 82607 ×2; 83735 ×2; 84443 ×2; 84484 ×2; 85014 ×2; 85018 ×2; 85025 ×2; 86850 ×2; 86900 ×2; 86901 ×2; 86920 ×2; 96361 ×2; 96374 ×2; 96376 ×2; A9270; G0378; G0379; J7120; P9016

== ENCOUNTER 2019-01-27 11:59 | Outpatient (CLI) | payer OTHER ==
[2019-01-28] MEDS ORDERED: LIDO GARGLE 30 ML BOTTLE ONE (16:17)
== END 2019-01-27 12:00 | disposition critical access hospital (66) ==
LOC: EMS 11:59
PROVIDERS: ATTEND Surgery
DX: R19.5 Other fecal abnormalities (principal); R06.00 Dyspnea, unspecified; R53.83 Other fatigue; R53.1 Weakness
CPT/HCPCS: A0425; A0427

== ENCOUNTER 2020-07-06 21:10 | Outpatient (CLI) | payer MEDICARE | END 2020-07-06 21:11 | disposition critical access hospital (66) | LOC: EMS 21:10 | PROVIDERS: ATTEND Surgery | DX: R07.81 Pleurodynia (principal); S51.811A Laceration without foreign body of right forearm, initial encounter; W19.XXXA Unspecified fall, initial encounter; Y92.009 Unspecified place in unspecified non-institutional (private) residence as the place of occurrence of the external cause | CPT/HCPCS: A0425; A0427 ==

== ENCOUNTER 2020-07-06 21:41 | Inpatient (IN) | payer MEDICARE ==
--- NOTE | 2020-07-06 22:33 | ED Physician Documentation ---
History of Present Illness - Stated complaint Stated Complaint: FOUND DOWN - Chief complaint Chief Complaint: General - History obtained from History obtained from: Patient, EMS - History of Present Illness Timing: How many days ago (3) Pain level max: 0 Pain level now: 0 Improved by: no ameliorating factors Worsened by: no exacerbating factors Associated symptoms: weakness, "skin sensitivity" - Additonal information Additional information: c/o generalized weakness, gradual onset 3 days ago but progressed to the point of not being able to stand up; he says he has been lying on the floor for the past 1-2 days. He says he believes he ate some "bad food" 3 days ago, which resulted in abdominal cramping, n/v and diarrhea, although this only lasted the one day; he says he has had poor appetite and decreased PO intake since then. He also says he has "skin sensitivity" (per patient); he says that "anything touching any part of me, like the mattress when I'm lying down, hurts my skin". EMS found patient lying in his own feces. Review of Systems Constitutional: reports: Myalgias. denies: Fever, Chills, Sweats Eyes: reports: Reviewed and negative Ears: reports: Reviewed and negative Nose: reports: Reviewed and negative Throat: reports: Reviewed and negative Cardiac: reports: Reviewed and negative Respiratory: reports: Reviewed and negative GI: reports: Reviewed and negative : denies: Dysuria, Frequency, Incontinent Skin: reports: Reviewed and negative Musculoskeletal: reports: Reviewed and negative Neurologic: reports: Generalized weakness. denies: Focal weakness, Numbness, Confused, Altered mental status, Headache, Head injury, LOC PD PAST MEDICAL HISTORY - Past Medical History Past Medical History: Yes Cardiovascular: Hypertension GI: GI bleed : Kidney stones - Past Surgical History Past Surgical History: Yes General: Colonoscopy - Present Medications Home Medications: Ambulatory Orders Medication Instructions Recorded Confirmed Zolpidem [Ambien] 5 mg PO HS PRN 01/27/19 01/27/19 Omeprazole 40 mg PO BID #20 capsule. 01/29/19 - Allergies Allergies/Adverse Reactions: Allergies Allergy/AdvReac Type Severity Reaction Status Date / Time Penicillins Allergy Unknown Verified 09/08/14 07:36 - Social History Does the pt smoke?: No Smoking Status: Never smoker Does the pt drink ETOH?: Yes Does the pt have substance abuse?: No - Immunizations Immunizations are current?: Yes PD ED PE NORMAL - Vitals Vital signs reviewed: Yes - General General: Alert and oriented X 3, No acute distress, Well developed/nourished - HEENT HEENT: PERRL, EOMI - Neck Neck: Supple, no meningeal sign, No bony TTP - Cardiac Cardiac: No murmur - Respiratory Respiratory: No respiratory distress, Clear bilaterally - Abdomen Abdomen: Soft, Non tender - Derm Derm: Normal color, Warm and dry - Extremities Extremities: Normal ROM s pain - Neuro Neuro: Alert and oriented X 3, 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 Eye Opening: Spontaneous Motor: Obeys Commands Verbal: Oriented GCS Score: 15 PD ED PE EXPANDED - Cardiac Cardiac: Tachy, Irregularly irregular - Extremities Extremities: Pedal edema bilateral Results - Vitals Vitals: Vital Signs - 24 hr 07/06/20 07/06/20 07/06/20 21:41 22:48 22:52 Temperature 36.6 C Heart Rate 120 H 134 H 109 H Respiratory 18 Rate Blood Pressure 128/98 H 125/92 H 122/92 H O2 Saturation 97 07/06/20 22:53 Temperature Heart Rate 110 H Respiratory Rate Blood Pressure 110/76 O2 Saturation Oxygen O2 Source Room air Oxygen Flow Rate 2 - EKG (time done) No standard instances Rate: Rate (enter#) (153) Rhythm: Atrial fibrillation [place]: LAD Ischemia: Normal ST segments, Q waves (III, aVF, V1-V3) - Labs Labs: Laboratory Tests 07/06/20 07/06/20 07/06/20 22:43 22:43 22:43 WBC 6.9 RBC 3.18 L Hgb 10.6 L Hct 32.8 L MCV 103.1 H MCH 33.3 H MCHC 32.3 RDW 16.0 H Plt Count 161 MPV 9.7 Neut # (Auto) 5.8 Lymph # (Auto) 0.5 L [place] # (Auto) 0.5 Eos # (Auto) 0.0 Baso # (Auto) 0.0 Absolute Nucleated RBC 0.00 Nucleated RBC % 0.0 Sodium 133 L Potassium 4.0 Chloride 101 Carbon Dioxide 18 L Anion Gap 14.0 H BUN 32 H Creatinine 2.4 H Estimated GFR (MDRD) 26 L Glucose 124 H Lactic Acid Calcium 8.6 Total Bilirubin 0.7 AST 81 H ALT 25 Alkaline Phosphatase 76 Total Creatine Kinase 3258 H* CK-MB (CK-2) 52.6 H Troponin I High Sens 179.8 H* B-Natriuretic Peptide Total Protein 6.4 L Albumin 2.7 L Globulin 3.7 Albumin/Globulin Ratio 0.7 L Lipase 27 TSH 07/06/20 07/06/20 07/06/20 22:43 22:43 22:43 WBC RBC Hgb Hct MCV MCH MCHC RDW Plt Count MPV Neut # (Auto) Lymph # (Auto) [place] # (Auto) Eos # (Auto) Baso # (Auto) Absolute Nucleated RBC Nucleated RBC % Sodium Potassium Chloride Carbon Dioxide Anion Gap BUN Creatinine Estimated GFR (MDRD) Glucose Lactic Acid 2.3 H Calcium Total Bilirubin AST ALT Alkaline Phosphatase Total Creatine Kinase CK-MB (CK-2) Troponin I High Sens B-Natriuretic Peptide 987 H Total Protein Albumin Globulin Albumin/Globulin Ratio Lipase TSH 2.53 - Rads (name of study) chest xray Radiology: Prelim report reviewed, See rad report PD MEDICAL DECISION MAKING - ED course Complexity details: reviewed old records, reviewed results, re-evaluated patient, considered differential, d/w patient Departure - Departure Disposition: 66 [facility] DC/Xfer Clinical Impression: Atrial fibrillation with RVR, Weakness Condition: Stable Discharge Date/Time: 07/07/20 00:50
[2020-07-06] MEDS ORDERED: DILTIAZEM 50 MG/10 ML VIAL IVP STA (22:37)
[2020-07-06 22:49] LABS: BASOPHILS % (AUTO) 0.1 %; HGB - HEMOGLOBIN 10.6 g/dL (14.0-18.0); LYMPHOCYTES # (AUTO) 0.5 10^3/uL (1.5-3.5); LYMPHOCYTES % (AUTO) 7.2 %; MEAN CORPUSCULAR HEMOGLOBIN 33.3 pg (27.0-31.0); MEAN CORPUSCULAR HGB CONC 32.3 g/dL (32.0-36.0); MEAN CORPUSCULAR VOLUME 103.1 fL (80.0-94.0); MEAN PLATELET VOLUME 9.7 fL (7.4-11.4); MONOCYTES # (AUTO) 0.5 10^3/uL (0.0-1.0); MONOCYTES % (AUTO) 7.7 %; NEUTROPHILS # (AUTO) 5.8 10^3/uL (1.5-6.6); NEUTROPHILS % (AUTO) 84.1 %; PLT - PLATELET COUNT 161 10^3/uL (130-450); RED BLOOD COUNT 3.18 10^6/uL (4.70-6.10); WHITE BLOOD COUNT 6.9 x10^3/uL (4.8-10.8)
[2020-07-06 23:10] LABS: CREATINE KINASE MB 52.6 ng/mL (0.6-6.3)
[2020-07-06 23:11] LABS: ALBUMIN 2.7 g/dL (3.2-5.5); ALBUMIN/GLOBULIN RATIO 0.7 (1.0-2.2); BILIRUBIN,TOTAL 0.7 mg/dL (0.2-1.0); CALCIUM 8.6 mg/dL (8.5-10.3); CREATININE 2.4 mg/dL (0.6-1.2); TOTAL PROTEIN 6.4 g/dL (6.7-8.2)
[2020-07-06] MEDS ORDERED: LACTATED RINGERS 1,000 ML IV ONE (23:52)
[2020-07-06] MEDS ORDERED: ONDANSETRON ODT 4 MG TABLET TL PRN (23:52)
[2020-07-06] MEDS ORDERED: ONDANSETRON 4 MG/2 ML VIAL IVP PRN (23:52)
--- NOTE | 2020-07-06 23:52 | HISTORY & PHYSICAL EXAMINATION ---
Chief Complaint - Chief Complaint Chief Complaint: Feeling weak and sick since Friday. History of Present Illness - Admitted From Admitted From:: Home - History Obtained From Records Reviewed: Yes History obtained from: Patient, ER Physician, EMR Exam Limitations: Patient is quite hard of hearing. - History of Present Illness HPI Comment/Other: This is a pleasant 84-year-old male who is quite hard of hearing and has a past medical history significant for GI bleed about 1 year ago where he was found to have a gastric ulcer, CKD stage III who presents today complaining of feeling sick and weak since this past Friday. He states he been doing quite well up until Friday when he started having decreased energy and some abdominal discomfort. He reports that he has been having diarrhea on and off for the past few months but not recently. He thinks he ate something bad on Friday which caused him to feel sick and have a decreased appetite. He reports he has not been eating or drinking much since then and he also has not exercised as much as he used to which has caused him to become progressively weak. He denies any focal deficits just generalized weakness. He reports no chest pain but he does feel like he has been dyspneic over the past week. He also reports a productive cough. He has noted that his legs have also been edematous over the past week or so. Denies feeling dizzy or lightheaded. Denies any recent bleeding or blood in his stool. Reports no palpitations. He denies any cardiac history including arrhythmias. He reports he does not take any medications. He lives at home alone but he reports he is independent with ADLs and he normally ambulates on his own without a walker or cane. He did tell the emergency department provider that he was complaining of pain all over and that his skin would hurt even when he would touch his on mattress. He denied any pain to me. In the emergency department, he was found to be afebrile temperature of 36.6 C. He was tachycardic with heart rates in the 140s and he was in atrial fibrillation. His blood pressure was 120/98. He was tachypneic with respiratory rate in the low 20s but he was saturating 97% on room air. Labs were significant for a BUN of 32, creatinine of 2.4, lactic acid of 2.3, CK of 3258, troponin of 179.8, a BNP of 987. His EKG revealed atrial relation with rapid ventricular response and Q waves in the inferior leads. This is changed compared to his prior EKG which was a sinus rhythm. Given the above findings, medicine was consulted for admission. I did discuss goals of care with the patient and he would like to be a DNR. He states that he does not want any aggressive measures and would not want any sort of interventions but he is agreeable to medical management. History - Past Medical History Cardiovascular: reports: Hypertension GI: reports: GI bleed, Ulcers : reports: Kidney stones HEENT: reports: Chronic hearing loss - Past Surgical History General: reports: Colonoscopy, EGD - Family & Social History Family History Comment/Other: He reports his father had polio. His mother had coronary artery disease. He does not recall any other family history. Living arrangement: At home Living Situation: Alone Social History Notes: He lives alone at home. He reports drinking whiskey on a near daily basis. He quit smoking pipes about 30 to 40 years ago. Meds/Allgy - Home Medications Home Medications: Ambulatory Orders Medication Instructions Recorded Confirmed Zolpidem [Ambien] 5 mg PO HS PRN 01/27/19 01/27/19 Omeprazole 40 mg PO BID #20 capsule. 01/29/19 - Allergies Allergies/Adverse Reactions: Allergies Allergy/AdvReac Type Severity Reaction Status Date / Time Penicillins Allergy Unknown Verified 09/08/14 07:36 Review of Systems - Constitutional Constitutional: reports: Fatigue, Malaise, Poor appetite. denies: Fever, Chills, Weakness - Eyes Eyes: denies: Vision loss - Ears, Nose & Throat Ears, Nose & Throat: denies: Nasal discharge, Nasal congestion, Sore throat - Cardiovascular Cariovascular: reports: Edema, Exertional dyspnea, Decr. exercise tolerance. denies: Irregular heart rate, Palpitations, Chest pain, Lightheadedness, Syncope - Respiratory Respiratory: reports: Cough, Sputum production, SOB at rest, SOB with exertion - Gastrointestinal Gastrointestinal: reports: Diarrhea, Poor appetite. denies: Abdominal pain, Black stools, Bloody stools, Nausea, Vomiting - Genitourinary Genitourinary: denies: Dysuria, Frequency, Urgency, Hematuria - Musculoskeletal Musculoskeletal: denies: Muscle pain, Limited range of motion - Integumentary Integumentary: denies: Rash - Neurological Neurological: reports: General weakness. denies: Focal weakness, Headache, Dizziness, Numbness, Memory problems - Hematologic/Lymphatic Hematologic/Lymphatic: denies: Bleeding tendencies - All Other Systems All Other Systems: reports: Reviewed and negative Prior Level of Functionality: He reports being independent with his ADLs and that he ambulates without a walker or cane at baseline Exam - Vital Signs Reviewed Vital Signs: Yes Vital Signs: Vital Signs x48h Temp Pulse Resp BP Pulse Ox 07/06/20 22:53 110 H 110/76 07/06/20 22:52 109 H 122/92 H 07/06/20 22:48 134 H 125/92 H 07/06/20 21:41 36.6 C 120 H 18 128/98 H 97 - Physical Exam General Appearance: positive: No acute distress, Alert Eyes Bilateral: positive: Normal inspection, Conjunctivae nml ENT: positive: Dry mucous membranes. negative: No signs of dehydration Neck: positive: Nml inspection Respiratory: positive: No respiratory distress, Other (Diminished ib ases.). negative: Wheezes, Rales Cardiovascular: positive: No murmur, Irregularly irregular, Tachycardia. negative: Regular rate & rhythm, Bradycardia, Systolic murmur Abdomen: positive: Non-tender, No distention. negative: Tenderness, Guarding, Rebound Skin: positive: Warm, Dry Extremities: positive: Full ROM, Pedal edema (He has about +2 pitting edema in his bilateral lower extremities up to his knees.) Neurologic/Psychiatric: positive: Other (He has no focal deficits on exam. He is able to move all 4 extremities. Sensation is grossly intact.). negative: Disoriented to person, Disoriented to place, Slurred/abnml speech Conclusion/Plan - Problem List (1) Atrial fibrillation with RVR Conclusion/Plan: This appears to be a new diagnosis for him. His heart is in the 140s but this has improved to the 110s after receiving diltiazem IV in the emergency department. His EKG does not suggest ischemia. His TSH is within normal limits. We will give him a one-time dose of Lopressor 5 mg IV now and start him on metoprolol 25 mg twice daily. Will monitor on telemetry. Obtain echocardiogram. We will need to discuss at some point with the patient regarding anticoagulation. (2) Rhabdomyolysis Conclusion/Plan: His CKs are elevated at nearly 3300. His AST is also slightly elevated. He also has mild acute kidney injury on his chronic kidney disease. This is likely to to his increasing weakness causing him to be sedentary. We will give him a liter of lactated Ringer's over 2 hours and start him on maintenance fluid at 100 mL an hour. We will not aggressively hydrate him given the possible CHF. We will recheck CKs in the morning. Qualifiers: Rhabdomyolysis type: non-traumatic Qualified Code(s): M62.82 - Rhabdomyolysis (3) Suspected CHF (congestive heart failure) Conclusion/Plan: His chest x-ray does not reveal any pulmonary vascular congestion but his BNP is elevated at nearly 1000 he does have lower extremity edema which she reports is new. Fortunately, he is not hypoxic. This is concerning for possible CHF. Prior echocardiogram available in 2017 showed a preserved ejection fraction with grade 1 diastolic dysfunction. This time, we will gently hydrate him with IV fluids given the rhabdomyolysis. Will obtain echocardiogram in the morning. We will not diurese him as he appears intravascularly depleted. (4) Elevated troponin Conclusion/Plan: His troponin is elevated at nearly 180. He denies any chest pain and his EKG is not suggestive of ischemia. Suspect is likely demand ischemia given the atrial fibrillation, acute kidney injury on chronic kidney disease. We will continue to trend his troponin closely and if it increases, will administer heparin and treat him medically for NSTEMI. He has made it quite clear that he would not want an angiogram and he may even be reluctant for aggressive medical management but we will address that if his troponin rises. We will monitor him on telemetry and obtain echocardiogram in the morning. (5) Acute kidney injury superimposed on chronic kidney disease Conclusion/Plan: It is not clear from review of records because of his chronic kidney disease stage III. His baseline creatinine is approximately 2.0. His creatinine is increased at 2.4 and this may be due to the rhabdomyolysis or intravascular depletion. This may also potentially be cardiorenal syndrome as he may have CHF but at this time, he appears intravascularly depleted despite his peripheral edema. We will gently hydrate him and monitor his renal function. Avoid nephrotoxins. (6) Weakness Conclusion/Plan: This is likely multifactorial and due to dehydration and possibly in the atrial fibrillation. He reports being independent at baseline and ambulating without walker or cane. He does not have any focal deficits on exam. At this time, we will treat him with IV hydration. We will trend his troponin to ensure this is not a NSTEMI. Check for COVID-19. We will encourage him to get out of bed and ambulate. He may need a physical therapy consult. Will consult social work to help with disposition. (7) Abnormal chest x-ray Conclusion/Plan: His chest x-ray did not suggest pulmonary vascular congestion but there was a possible opacity in left mid lung. This was read as possible pneumonia or a confluence of shadows. Although he does have a cough and dyspnea, he is afebrile with no leukocytosis. At this time, we will hold off on starting antibiotics. We will repeat a chest x-ray in the morning and if this opacity persists then will likely start him on empiric antibiotics for pneumonia. We will check him for COVID-19 as well given his generalized weakness. - Lab Results Lab results reviewed: Yes Fish Bones: 07/06/20 22:43 07/06/20 22:43 - Diagnostic Imaging Results Diagnostic Imaging Results: positive: Final report reviewed - EKG Results EKG Interpreted Independently: Yes EKG Comparison: Changed from prior EKG EKG Findings: His EKG shows atrial relation with rapid ventricular response. Q waves in the inferior leads. No obvious ST segment changes. Core Measures - Anticipated LOS I expect patient to be DC'd or transferred within 96 hours.: Yes - Issues Hospital Issues and Management Plan: 84-year-old male who presents due to generalized weakness and malaise found to be in A. fib with RVR and have rhabdomyolysis as well. Concern is for possible CHF as well given his lower extremity edema and dyspnea. We will gently hydrate him and obtain echocardiogram. - DVT/VTE - Prophylaxis VTE/DVT Device ordered at admit?: Yes VTE/DVT Prophylaxis med ordered at admit?: Yes
[2020-07-06] MEDS ORDERED: METOPROLOL 5 MG/5 ML VIAL IVP STA (23:57)
[2020-07-07 00:39] LABS: BASOPHILS % (AUTO) 0.3 %; HGB - HEMOGLOBIN 11.1 g/dL (14.0-18.0); LYMPHOCYTES # (AUTO) 0.6 10^3/uL (1.5-3.5); MEAN CORPUSCULAR HEMOGLOBIN 34.2 pg (27.0-31.0); MEAN CORPUSCULAR VOLUME 106.8 fL (80.0-94.0); MEAN PLATELET VOLUME 9.9 fL (7.4-11.4); MONOCYTES # (AUTO) 0.5 10^3/uL (0.0-1.0); MONOCYTES % (AUTO) 7.1 %; NEUTROPHILS # (AUTO) 5.9 10^3/uL (1.5-6.6); NEUTROPHILS % (AUTO) 82.8 %; PLT - PLATELET COUNT 155 10^3/uL (130-450); RED BLOOD COUNT 3.25 10^6/uL (4.70-6.10); RED CELL DISTRIBUTION WIDTH 16.1 % (12.0-15.0); WHITE BLOOD COUNT 7.1 x10^3/uL (4.8-10.8)
[2020-07-07 01:02] LABS: CALCIUM 8.6 mg/dL (8.5-10.3); CREATININE 2.4 mg/dL (0.6-1.2); MAGNESIUM 2.1 mg/dL (1.7-2.8); PHOSPHORUS 3.8 mg/dL (2.5-4.6)
[2020-07-07] MEDS: METOPROLOL TARTRATE 25 MG TABLET PO SCH ×3 (01:26→21:01)
[2020-07-07] MEDS: LACTATED RINGERS 1,000 ML IV SCH ×2 (03:44→13:23)
[2020-07-07] MEDS: SODIUM CHLORIDE FLUSH 0.9% 10 ML SYRINGE IVP SCH ×3 (03:44→21:02)
[2020-07-07 07:06] LABS: BASOPHILS % (AUTO) 0.3 %; HGB - HEMOGLOBIN 10.5 g/dL (14.0-18.0); LYMPHOCYTES # (AUTO) 0.7 10^3/uL (1.5-3.5); LYMPHOCYTES % (AUTO) 10.1 %; MEAN CORPUSCULAR HEMOGLOBIN 34.5 pg (27.0-31.0); MEAN CORPUSCULAR VOLUME 104.6 fL (80.0-94.0); MONOCYTES # (AUTO) 0.5 10^3/uL (0.0-1.0); MONOCYTES % (AUTO) 8.1 %; NEUTROPHILS # (AUTO) 5.4 10^3/uL (1.5-6.6); NEUTROPHILS % (AUTO) 80.7 %; PLT - PLATELET COUNT 161 10^3/uL (130-450); RED BLOOD COUNT 3.04 10^6/uL (4.70-6.10); RED CELL DISTRIBUTION WIDTH 16.3 % (12.0-15.0); WHITE BLOOD COUNT 6.6 x10^3/uL (4.8-10.8)
[2020-07-07 07:37] LABS: CALCIUM 8.5 mg/dL (8.5-10.3); CREATININE 2.2 mg/dL (0.6-1.2); MAGNESIUM 2.2 mg/dL (1.7-2.8); PHOSPHORUS 4.2 mg/dL (2.5-4.6)
--- NOTE | 2020-07-07 08:38 | XRAY Report ---
PROCEDURE: Chest 1 View X-Ray INDICATIONS: chest pain TECHNIQUE: One view of the chest was acquired. COMPARISON: None. FINDINGS: Surgical changes and devices: None. Lungs and pleura: No pleural effusions or pneumothorax. Lungs are abnormal with a generalized edema pattern, and also left greater than right alveolar infiltration superimposed potentially a manifesta tion of mild left-sided pneumonia. Mediastinum: Mediastinal contours appear normal. Heart size is mildly enlarged. Bones and chest wall: No suspicious bony lesions. Overlying soft tissues appear unremarkable. IMPRESSION: Cardiomegaly, pulmonary edema pattern. Alveolar infiltration is greater on the left than the right wh ich can be seen in typical pulmonary edema but also may reflect a superimposed mild left-sided pneumo tamika. Follow-up recommended. Reviewed by: Jude Saenz MD on 07/07/2020 8:37 AM PDT Approved by: Jude Saenz MD on 07/07/2020 8:37 AM PDT Station ID: [id number]
[2020-07-07] MEDS ORDERED: HEPARIN 5,000 UNIT/ML VIAL SUBQ SCH (09:00)
[2020-07-07] MEDS: ACETAMINOPHEN 325 MG TABLET PO PRN ×2 (09:13→21:00)
--- NOTE | 2020-07-07 09:31 | XRAY Report ---
PROCEDURE: Chest 1 View X-Ray INDICATIONS: Follow up possible infiltrate. TECHNIQUE: One view of the chest was acquired. COMPARISON: Chest plain film one day earlier. FINDINGS: Surgical changes and devices: None. Lungs and pleura: No pleural effusions or pneumothorax. Lungs are abnormal, with a generalized pulm onary edema pattern but the exam today is with the patient tilting rightward with reduced inspiration on the right as a result.. Mediastinum: Mediastinal contours appear normal. Heart size is mildly enlarged globally considering body habitus and reduced inspiration. Bones and chest wall: No suspicious bony lesions. Overlying soft tissues appear unremarkable. IMPRESSION: CHF pattern, mild cardiomegaly. Patient tilt rightward accentuates edema pattern within the right marleny g. Reviewed by: Jude Saenz MD on 07/07/2020 9:30 AM PDT Approved by: Jude Saenz MD on 07/07/2020 9:30 AM PDT Station ID: [id number]
--- NOTE | 2020-07-07 12:19 | PROVIDER PROGRESS NOTE ---
Subjective - Prog Note Date Prog Note Date: 07/07/20 Prog Note Time: 12:26 - Subjective Pt reports feeling: Improved Subjective: tired but no fever. still w afib but rate is controlled. getting up to chair. Objective - Vital Signs/Intake & Output Reviewed Vital Signs: Yes Vital Signs: Vital Signs x48h Temp Pulse Resp BP Pulse Ox 07/07/20 09:00 36.6 C 93 16 117/69 93 Intake & Output: Intake & Output 07/04/20 07/05/20 07/06/20 07/07/20 23:59 23:59 23:59 23:59 Intake Total 1050 Balance 1050 - Objective General Appearance: positive: No acute distress, Alert Eyes Bilateral: positive: PERRL ENT: positive: No signs of dehydration Neck: positive: No JVD. negative: Stiff neck Respiratory: positive: Chest non-tender. negative: Wheezes, Rales, Rhonchi Cardiovascular: positive: Irregularly irregular. negative: Tachycardia, Gallop/S4, Friction rub Abdomen: positive: Non-tender, No organomegaly, Nml bowel sounds, No distention Skin: positive: Warm, Dry Extremities: positive: No pedal edema Neurologic/Psychiatric: positive: Oriented x3, CN's nml (2-12), Motor nml - Lab Results Fish Bones: 07/07/20 05:30 07/07/20 05:30 Other Labs: Lab Results x24hrs 07/07/20 07/07/20 07/07/20 Range/Units 05:30 05:30 05:30 WBC 6.6 (4.8-10.8) x10^3/uL RBC 3.04 L (4.70-6.10) 10^6/uL Hgb 10.5 L (14.0-18.0) g/dL Hct 31.8 L (42.0-52.0) % MCV 104.6 H (80.0-94.0) fL MCH 34.5 H (27.0-31.0) pg MCHC 33.0 (32.0-36.0) g/dL RDW 16.3 H (12.0-15.0) % Plt Count 161 (130-450) 10^3/uL MPV 10.0 (7.4-11.4) fL Neut # (Auto) 5.4 (1.5-6.6) 10^3/uL Lymph # (Auto) 0.7 L (1.5-3.5) 10^3/uL Trigg # (Auto) 0.5 (0.0-1.0) 10^3/uL Eos # (Auto) 0.0 (0.0-0.7) 10^3/uL Baso # (Auto) 0.0 (0.0-0.1) 10^3/uL Absolute Nucleated RBC 0.00 x10^3/uL Nucleated RBC % 0.0 /100WBC Sodium 133 L (135-145) mmol/L Potassium 4.0 (3.5-5.0) mmol/L Chloride 101 (101-111) mmol/L Carbon Dioxide 21 (21-32) mmol/L Anion Gap 11.0 (6-13) BUN 33 H (6-20) mg/dL Creatinine 2.2 H (0.6-1.2) mg/dL Estimated GFR (MDRD) 29 L (>89) Glucose 110 H (70-100) mg/dL Lactic Acid (0.5-2.2) mmol/L Calcium 8.5 (8.5-10.3) mg/dL Phosphorus 4.2 (2.5-4.6) mg/dL Magnesium 2.2 (1.7-2.8) mg/dL Total Bilirubin (0.2-1.0) mg/dL AST (10-42) IU/L ALT (10-60) IU/L Alkaline Phosphatase (42-121) IU/L Total Creatine Kinase 2848 H* (22-269) IU/L CK-MB (CK-2) (0.6-6.3) ng/mL Troponin I High Sens 146.1 H* (2.3-19.7) ng/L B-Natriuretic Peptide (5-100) pg/mL Total Protein (6.7-8.2) g/dL Albumin (3.2-5.5) g/dL Globulin (2.1-4.2) g/dL Albumin/Globulin Ratio (1.0-2.2) Lipase (22-51) U/L TSH (0.34-5.60) uIU/mL 07/07/20 07/07/20 07/07/20 Range/Units 00:05 00:05 00:05 WBC (4.8-10.8) x10^3/uL RBC (4.70-6.10) 10^6/uL Hgb (14.0-18.0) g/dL Hct (42.0-52.0) % MCV (80.0-94.0) fL MCH (27.0-31.0) pg MCHC (32.0-36.0) g/dL RDW (12.0-15.0) % Plt Count (130-450) 10^3/uL MPV (7.4-11.4) fL Neut # (Auto) (1.5-6.6) 10^3/uL Lymph # (Auto) (1.5-3.5) 10^3/uL Trigg # (Auto) (0.0-1.0) 10^3/uL Eos # (Auto) (0.0-0.7) 10^3/uL Baso # (Auto) (0.0-0.1) 10^3/uL Absolute Nucleated RBC x10^3/uL Nucleated RBC % /100WBC Sodium (135-145) mmol/L Potassium (3.5-5.0) mmol/L Chloride (101-111) mmol/L Carbon Dioxide (21-32) mmol/L Anion Gap (6-13) BUN (6-20) mg/dL Creatinine (0.6-1.2) mg/dL Estimated GFR (MDRD) (>89) Glucose (70-100) mg/dL Lactic Acid 2.2 (0.5-2.2) mmol/L Calcium (8.5-10.3) mg/dL Phosphorus (2.5-4.6) mg/dL Magnesium (1.7-2.8) mg/dL Total Bilirubin (0.2-1.0) mg/dL AST (10-42) IU/L ALT (10-60) IU/L Alkaline Phosphatase (42-121) IU/L Total Creatine Kinase (22-269) IU/L CK-MB (CK-2) (0.6-6.3) ng/mL Troponin I High Sens 189.9 H* (2.3-19.7) ng/L B-Natriuretic Peptide 1021 H (5-100) pg/mL Total Protein (6.7-8.2) g/dL Albumin (3.2-5.5) g/dL Globulin (2.1-4.2) g/dL Albumin/Globulin Ratio (1.0-2.2) Lipase (22-51) U/L TSH (0.34-5.60) uIU/mL 07/07/20 07/07/20 07/06/20 Range/Units 00:05 00:05 22:43 WBC 7.1 (4.8-10.8) x10^3/uL RBC 3.25 L (4.70-6.10) 10^6/uL Hgb 11.1 L (14.0-18.0) g/dL Hct 34.7 L (42.0-52.0) % MCV 106.8 H (80.0-94.0) fL MCH 34.2 H (27.0-31.0) pg MCHC 32.0 (32.0-36.0) g/dL RDW 16.1 H (12.0-15.0) % Plt Count 155 (130-450) 10^3/uL MPV 9.9 (7.4-11.4) fL Neut # (Auto) 5.9 (1.5-6.6) 10^3/uL Lymph # (Auto) 0.6 L (1.5-3.5) 10^3/uL Trigg # (Auto) 0.5 (0.0-1.0) 10^3/uL Eos # (Auto) 0.0 (0.0-0.7) 10^3/uL Baso # (Auto) 0.0 (0.0-0.1) 10^3/uL Absolute Nucleated RBC 0.00 x10^3/uL Nucleated RBC % 0.0 /100WBC Sodium 132 L (135-145) mmol/L Potassium 3.9 (3.5-5.0) mmol/L Chloride 103 (101-111) mmol/L Carbon Dioxide 18 L (21-32) mmol/L Anion Gap 11.0 (6-13) BUN 31 H (6-20) mg/dL Creatinine 2.4 H (0.6-1.2) mg/dL Estimated GFR (MDRD) 26 L (>89) Glucose 122 H (70-100) mg/dL Lactic Acid (0.5-2.2) mmol/L Calcium 8.6 (8.5-10.3) mg/dL Phosphorus 3.8 (2.5-4.6) mg/dL Magnesium 2.1 (1.7-2.8) mg/dL Total Bilirubin (0.2-1.0) mg/dL AST (10-42) IU/L ALT (10-60) IU/L Alkaline Phosphatase (42-121) IU/L Total Creatine Kinase 3326 H* (22-269) IU/L CK-MB (CK-2) (0.6-6.3) ng/mL Troponin I High Sens (2.3-19.7) ng/L B-Natriuretic Peptide 987 H (5-100) pg/mL Total Protein (6.7-8.2) g/dL Albumin (3.2-5.5) g/dL Globulin (2.1-4.2) g/dL Albumin/Globulin Ratio (1.0-2.2) Lipase (22-51) U/L TSH (0.34-5.60) uIU/mL 07/06/20 07/06/20 07/06/20 Range/Units 22:43 22:43 22:43 WBC (4.8-10.8) x10^3/uL RBC (4.70-6.10) 10^6/uL Hgb (14.0-18.0) g/dL Hct (42.0-52.0) % MCV (80.0-94.0) fL MCH (27.0-31.0) pg MCHC (32.0-36.0) g/dL RDW (12.0-15.0) % Plt Count (130-450) 10^3/uL MPV (7.4-11.4) fL Neut # (Auto) (1.5-6.6) 10^3/uL Lymph # (Auto) (1.5-3.5) 10^3/uL Trigg # (Auto) (0.0-1.0) 10^3/uL Eos # (Auto) (0.0-0.7) 10^3/uL Baso # (Auto) (0.0-0.1) 10^3/uL Absolute Nucleated RBC x10^3/uL Nucleated RBC % /100WBC Sodium (135-145) mmol/L Potassium (3.5-5.0) mmol/L Chloride (101-111) mmol/L Carbon Dioxide (21-32) mmol/L Anion Gap (6-13) BUN (6-20) mg/dL Creatinine (0.6-1.2) mg/dL Estimated GFR (MDRD) (>89) Glucose (70-100) mg/dL Lactic Acid 2.3 H (0.5-2.2) mmol/L Calcium (8.5-10.3) mg/dL Phosphorus (2.5-4.6) mg/dL Magnesium (1.7-2.8) mg/dL Total Bilirubin (0.2-1.0) mg/dL AST (10-42) IU/L ALT (10-60) IU/L Alkaline Phosphatase (42-121) IU/L Total Creatine Kinase (22-269) IU/L CK-MB (CK-2) 52.6 H (0.6-6.3) ng/mL Troponin I High Sens 179.8 H* (2.3-19.7) ng/L B-Natriuretic Peptide (5-100) pg/mL Total Protein (6.7-8.2) g/dL Albumin (3.2-5.5) g/dL Globulin (2.1-4.2) g/dL Albumin/Globulin Ratio (1.0-2.2) Lipase (22-51) U/L TSH 2.53 (0.34-5.60) uIU/mL 07/06/20 07/06/20 Range/Units 22:43 22:43 WBC 6.9 (4.8-10.8) x10^3/uL RBC 3.18 L (4.70-6.10) 10^6/uL Hgb 10.6 L (14.0-18.0) g/dL Hct 32.8 L (42.0-52.0) % MCV 103.1 H (80.0-94.0) fL MCH 33.3 H (27.0-31.0) pg MCHC 32.3 (32.0-36.0) g/dL RDW 16.0 H (12.0-15.0) % Plt Count 161 (130-450) 10^3/uL MPV 9.7 (7.4-11.4) fL Neut # (Auto) 5.8 (1.5-6.6) 10^3/uL Lymph # (Auto) 0.5 L (1.5-3.5) 10^3/uL Trigg # (Auto) 0.5 (0.0-1.0) 10^3/uL Eos # (Auto) 0.0 (0.0-0.7) 10^3/uL Baso # (Auto) 0.0 (0.0-0.1) 10^3/uL Absolute Nucleated RBC 0.00 x10^3/uL Nucleated RBC % 0.0 /100WBC Sodium 133 L (135-145) mmol/L Potassium 4.0 (3.5-5.0) mmol/L Chloride 101 (101-111) mmol/L Carbon Dioxide 18 L (21-32) mmol/L Anion Gap 14.0 H (6-13) BUN 32 H (6-20) mg/dL Creatinine 2.4 H (0.6-1.2) mg/dL Estimated GFR (MDRD) 26 L (>89) Glucose 124 H (70-100) mg/dL Lactic Acid (0.5-2.2) mmol/L Calcium 8.6 (8.5-10.3) mg/dL Phosphorus (2.5-4.6) mg/dL Magnesium (1.7-2.8) mg/dL Total Bilirubin 0.7 (0.2-1.0) mg/dL AST 81 H (10-42) IU/L ALT 25 (10-60) IU/L Alkaline Phosphatase 76 (42-121) IU/L Total Creatine Kinase 3258 H* (22-269) IU/L CK-MB (CK-2) (0.6-6.3) ng/mL Troponin I High Sens (2.3-19.7) ng/L B-Natriuretic Peptide (5-100) pg/mL Total Protein 6.4 L (6.7-8.2) g/dL Albumin 2.7 L (3.2-5.5) g/dL Globulin 3.7 (2.1-4.2) g/dL Albumin/Globulin Ratio 0.7 L (1.0-2.2) Lipase 27 (22-51) U/L TSH (0.34-5.60) uIU/mL Assessment/Plan - Problem List (1) Atrial fibrillation with RVR Impression: This appears to be a new diagnosis for him. His heart is in the 140s but this has improved to the 110s after receiving diltiazem IV in the emergency department. His EKG does not suggest ischemia. His TSH is within normal limits. His troponin eval for [place] was 179.8, 189.9, 146.1. This is a relatively flat leveling of high troponins that are high-sensitivity so I think this is demand ischemia from his fast A. fib. We will gave him a one-time dose of Lopressor 5 mg IV now and started him on metoprolol 25 mg twice daily. Rate in the 90s right now Plan: Will monitor on telemetry. Echo done and pending. results will be reviewed. Finish work up for Afib including venous dopplers for DVT, already on heparin for DVT prophylaxis. Start anticoagulation when appropriate for CHADs risk (2) Rhabdomyolysis Conclusion/Plan: His CKs are elevated at nearly 3300. His AST is also slightly elevated. He also has mild acute kidney injury on his chronic kidney disease. This is likely to to his increasing weakness causing him to be sedentary. We gave him a liter of lactated Ringer's over 2 hours and start him on maintenance fluid at 100 mL an hour. We will not aggressively hydrate him given the possible CHF. CPK started at 3326 and it is 2848 this morning. Plan: Continue to monitor CPK Continue to treat with very low-dose IV fluids to avoid CHF Qualifiers: Rhabdomyolysis type: non-traumatic Qualified Code(s): M62.82 - Rh abdomyolysis (3) Suspected CHF (congestive heart failure) Conclusion/Plan: His chest x-ray does not reveal any pulmonary vascular congestion but his BNP is elevated at nearly 1000 he does have lower extremity edema which she reports is new. Fortunately, he is not hypoxic. This is concerning for possible CHF. Prior echocardiogram available in 2017 showed a preserved ejection fraction with grade 1 diastolic dysfunction. Plan: gently hydrate him with IV fluids given the rhabdomyolysis. ECHO pending. (4) Elevated troponin Conclusion/Plan: His troponin is elevated at nearly 180. He denies any chest pain and his EKG is not suggestive of ischemia. Suspect is likely demand ischemia given the atrial fibrillation, acute kidney injury on chronic kidney disease. We will continue to trend his troponin closely and if it increases, will administer heparin and treat him medically for NSTEMI. He has made it quite clear that he would not want an angiogram and he may even be reluctant for aggressive medical management but we will address that if his troponin rises. Telemetry has not shown anything other than the atrial fibrillation. Repeat troponins are dropping. Confirms most likely demand ischemia. Plan: Continue to monitor on telemetry Continue to monitor for any signs or symptoms of [place] (5) Acute kidney injury superimposed on chronic kidney disease Conclusion/Plan: It is not clear from review of records because of his chronic kidney disease stage III. His baseline creatinine is approximately 2.0. His creatinine is increased at 2.4 and this may be due to the rhabdomyolysis or intravascular depletion. This may also potentially be cardiorenal syndrome as he may have CHF but at this time, he appears intravascularly depleted despite his peripheral edema. Today creat is 2.2 so responding. Plan: Continue to gently hydrate him and monitor his renal function. Avoid nephrotoxins. (6) Weakness Conclusion/Plan: This is likely multifactorial and due to dehydration and possibly in the atrial fibrillation. He reports being independent at baseline and ambulating without walker or cane. He does not have any focal deficits on exam. Plan: IV hydration. trend his troponin to ensure this is not a NSTEMI. Check for COVID-19 because if he needs SNF for PT they will need that. Do not suspect covid infection at this tme We will encourage him to get out of bed and ambulate. PT to see him today. (7) Abnormal chest x-ray Conclusion/Plan: His chest x-ray did not suggest pulmonary vascular congestion but there was a possible opacity in left mid lung. This was read as possible pneumonia or a confluence of shadows. Although he does have a cough and dyspnea, he was afebrile with no leukocytosis. At this time, we are holding off on starting antibiotics. We will repeat a chest x-ray in the morning and if this opacity persists then will likely start him on empiric antibiotics for pneumonia. (8) Anemia, nonspecific. He has had a for a while. In the past he is even gotten as low as 6 g of hemoglobin. I will investigate the EMR to see if this is anemia of chronic disease, iron deficiency, etc.
[2020-07-07] MEDS ORDERED: LIDOCAINE 2% URO-JET 5 ML SYRINGE UR ONE (12:45)
--- NOTE | 2020-07-07 12:52 | Ultrasound Report ---
PROCEDURE: Duplex Ext Veins Bilateral INDICATIONS: ANTONI SALAS TECHNIQUE: Real-time imaging, as well as color and pulse Doppler interrogation, were performed of the deep veins of both legs from the inguinal ligament to the popliteal fossa. COMPARISON: None. FINDINGS: Right side: There is occlusive thrombus in the right popliteal, tibioperoneal and peroneal veins. The posterior tibial veins are patent. Femoral, profunda, common femoral veins are patent. The saphen ous vein is patent. Left side: There is occlusive thrombus in the peroneal vein which extends into the tibioperoneal trunk. There is short segment thrombus in the posterior tibial vein. Femoral, profunda, common femoral veins are patent. Greater saphenous vein is patent. IMPRESSION: 1. Right side: DVT in the right popliteal, tibioperitoneal trunk, peroneal veins. 2. Left side: DVT in the peroneal, tibial peroneal trunk, and posterior tibial vein. Preliminary results were conveyed to Dr. Salas by the mechanical engineer. Reviewed by: Edgardo Willingham MD on 07/07/2020 12:51 PM PDT Approved by: Edgardo Willingham MD on 07/07/2020 12:51 PM PDT Station ID: [id number]
[2020-07-07 15:54] LABS: BILIRUBIN,URINE NEGATIVE (NEGATIVE); GLUCOSE, URINE (UA) NEGATIVE (NEGATIVE); KETONES,URINE (UA) NEGATIVE (NEGATIVE); LEUKOCYTE ESTERASE, URINE TRACE (NEGATIVE); NITRITE,URINE NEGATIVE (NEGATIVE); OCCULT BLOOD,URINE LARGE (NEGATIVE); PROTEIN,URINE 100 mg/dL (NEGATIVE); UROBILINOGEN,URINE 0.2 (NORMAL) E.U./dL (NORMAL)
[2020-07-07 15:59] LABS: CLARITY,URINE CLEAR (CLEAR)
[2020-07-07 16:09] LABS: BACTERIA,URINE Few /HPF (None Seen); SQUAMOUS EPITHELIAL CELL,UR FEW Squamous (<= Few)
--- NOTE | 2020-07-07 18:11 | PHARMACY PROGRESS NOTE ---
- Best Possible Medication History Admit Date and Time: 07/06/20 9440 Processed by: Pharmacy Medication History completed: In progress Patient Interview: Pt unable to participate (unable to interview at this time- COVID pending. No additional sources available. Will need to wait for COVID test result to complete [facility]) As the person ultimately responsible for medication therapy, providers are able to order a medication from an existing home medication list in [facility] via the "Reconcile Routine" prior to Confirmation of that medication by service support representative. Such practice is discouraged except when the physician, in their clinical judgment, deems that a medical need exists for a medication without regard to previous use.
[2020-07-07] MEDS: ENOXAPARIN 80 MG/0.8 ML SYRINGE SUBQ SCH (18:43)
[2020-07-07] MEDS: traZODone 50 MG TABLET PO SCH (20:59)
[2020-07-07] MEDS: CIPROFLOXACIN 200 MG/100 ML 200 MG/100 ML BAG IV SCH (22:21)
[2020-07-07] MEDS: TAMSULOSIN 0.4 MG CAPSULE PO SCH (22:21)
[2020-07-08] MEDS: SODIUM CHLORIDE FLUSH 0.9% 10 ML SYRINGE IVP SCH ×3 (00:36→18:05)
[2020-07-08] MEDS: LACTATED RINGERS 1,000 ML IV SCH ×2 (00:36→11:55)
[2020-07-08 07:20] LABS: BASOPHILS % (AUTO) 0.3 %; EOSINOPHILS % (AUTO) 0.1 %; HGB - HEMOGLOBIN 12.4 g/dL (14.0-18.0); LYMPHOCYTES % (AUTO) 7.9 %; MEAN CORPUSCULAR HGB CONC 32.6 g/dL (32.0-36.0); MEAN CORPUSCULAR VOLUME 104.1 fL (80.0-94.0); MEAN PLATELET VOLUME 10.2 fL (7.4-11.4); MONOCYTES % (AUTO) 4.3 %; NEUTROPHILS % (AUTO) 86.2 %; PLT - PLATELET COUNT 185 10^3/uL (130-450); RED BLOOD COUNT 3.65 10^6/uL (4.70-6.10); RED CELL DISTRIBUTION WIDTH 16.4 % (12.0-15.0); WHITE BLOOD COUNT 7.4 x10^3/uL (4.8-10.8)
[2020-07-08 07:29] LABS: ABNORMAL LYMPHS % (MANUAL) 0 %
[2020-07-08 07:42] LABS: BAND NEUTROPHILS % (MANUAL) 3 %; LYMPHOCYTES # (MANUAL) 0.6 10^3/uL (1.5-3.5); LYMPHOCYTES % (MANUAL) 8 %; MONOCYTES # (MANUAL) 0.4 10^3/uL (0.0-1.0)
[2020-07-08 07:45] LABS: DIFFERENTIAL COMMENT MANUAL DIFFERENTIAL; PLATELET MORPHOLOGY NORMAL APPEARANCE (NORMAL)
[2020-07-08 07:46] LABS: PLATELET ESTIMATE, MANUAL NORMAL (130-450,000) (NORMAL)
[2020-07-08 07:55] LABS: CALCIUM 8.4 mg/dL (8.5-10.3); CREATININE 2.3 mg/dL (0.6-1.2); PHOSPHORUS 3.9 mg/dL (2.5-4.6)
[2020-07-08] MEDS: ENOXAPARIN 80 MG/0.8 ML SYRINGE SUBQ SCH (09:42)
[2020-07-08] MEDS: TAMSULOSIN 0.4 MG CAPSULE PO SCH (09:43)
[2020-07-08] MEDS: CIPROFLOXACIN 200 MG/100 ML 200 MG/100 ML BAG IV SCH ×2 (09:43→21:57)
[2020-07-08] MEDS: METOPROLOL TARTRATE 25 MG TABLET PO SCH (09:43)
[2020-07-08] MEDS ORDERED: TAMSULOSIN 0.4 MG CAPSULE PO ONE (12:00)
--- NOTE | 2020-07-08 15:02 | PROVIDER PROGRESS NOTE ---
Subjective - Prog Note Date Prog Note Date: 07/08/20 Prog Note Time: 15:48 - Subjective Subjective: Yesterday, I had obtained venous Dopplers because of his history of new onset A. fib. He does have bilateral DVTs and is been started on anticoagulation. He denies chest pain, palpitations, and shortness of breath. he is alert, VERY deaf and pulling out IVs. Confused. no combative just confused and impulsive. But, when he sits down to talk to me, he can tell me quite a story. He reiterated the history from his history and physical on admission. He adds to it a bit. He says that he ate something from 1 of his neighbors. They brought it over for him to eat and he wonders if it was "bad" because he started having nausea, vomiting and diarrhea after eating that food. A couple of times the diarrhea was severe enough that he messed up his pants. It got to the point that he was tired of trying to take on and off his pants so he is walking around without any pants on. He started getting weak. At times he would crawl on the floor to get around. He started getting alarms so he went out onto his "little balcony" and started yelling "help me, help me". He does not know if that is what caused the threader to come to his house. That may be he was naked from the waist down or that his neighbors heard him to call the threader. He is worried about how he is getting at home. He does not have a way to get home. He also does not have a way to get into his apartment. The keys were left on the top of a bookshelf and he is fretting that he will not be able to get back in again. Current Medications - Current Medications Current Medications: Active Medications Acetaminophen (Tylenol) 650 mg PO Q4HR PRN PRN Reason: Pain 1 to 4 Last Admin: 07/07/20 21:00 Dose: 650 mg Documented by: Enoxaparin Sodium (Lovenox) 70 mg SUBQ DAILY [facility] Last Admin: 07/08/20 09:42 Dose: 70 mg Documented by: Lactated Ringer's (Lr) 1,000 mls @ 100 mls/hr IV .Q10H [facility] Last Admin: 07/08/20 11:55 Dose: 100 mls/hr Documented by: Ciprofloxacin (Cipro 200 Mg/100 Ml) 200 mg in 100 mls @ 200 mls/hr IV Q12H [facility] Last Infusion: 07/08/20 12:16 Dose: Infused Documented by: Metoprolol Tartrate (Lopressor) 25 mg PO BID [facility] Last Admin: 07/08/20 09:43 Dose: 25 mg Documented by: Ondansetron HCl (Zofran Inj) 4 mg IVP Q6HR PRN PRN Reason: Nausea / Vomiting Ondansetron HCl (Zofran Odt) 4 mg TL Q6HR PRN PRN Reason: Nausea / Vomiting Sodium Chloride (Normal Saline Flush 0.9%) 10 ml IVP PRN PRN PRN Reason: NEEDED PER PROVIDER ORDERS Sodium Chloride (Normal Saline Flush 0.9%) 10 ml IVP 0100,0900,1700 [facility] Last Admin: 07/08/20 09:45 Dose: Not Given Documented by: Tamsulosin HCl (Flomax) 0.8 mg PO DAILY [facility] Trazodone HCl (Desyrel) 25 mg PO QPM [facility] Last Admin: 07/07/20 20:59 Dose: 25 mg Documented by: Zolpidem [Ambien] 5 mg PO HS PRN 01/27/19 Objective - Vital Signs/Intake & Output Reviewed Vital Signs: Yes Vital Signs: Vital Signs x48h Temp Pulse Resp BP BP Pulse Ox 07/08/20 14:24 36.3 C L 07/08/20 13:00 36.4 C L 103 H 20 104/65 94 07/08/20 11:45 99 20 101/72 93 07/08/20 09:43 105/73 07/08/20 08:55 36.3 C L 54 L 17 99/73 91 L Intake & Output: Intake & Output 07/05/20 07/06/20 07/07/20 07/08/20 23:59 23:59 23:59 23:59 Intake Total 3615 1640 Output Total 237 561 Balance 3378 1079 - Objective General Appearance: positive: Alert, Other (deaf. you have to get close and speak into his ears or speak at a very loud voice. 5'6.5" at 68 kg.) Eyes Bilateral: positive: PERRL, EOMI ENT: positive: No signs of dehydration Neck: positive: No JVD. negative: Lymphadenopathy (R), Lymphadenopathy (L), Stiff neck Respiratory: positive: Chest non-tender. negative: Wheezes, Rales, Rhonchi Cardiovascular: positive: Regular rate & rhythm, Systolic murmur. negative: Gal lop/S4, Friction rub Abdomen: positive: Non-tender, No organomegaly, No distention, Other (Hyperactive bowel sounds) Skin: positive: Warm, Dry Extremities: positive: Full ROM, No pedal edema Neurologic/Psychiatric: positive: CN's nml (2-12), Disoriented to place, Disoriented to time. negative: Motor nml (He is very weak. He does not have any focal deficits. Able to bring food to his mouth, adjust clothing, use his hands appropriately. However, at one point, he decided that the nurse was not responding to him fast enough. So he called her. She put on her contact gown, mask, gloves and was watchi) - Lab Results Fish Bones: 07/08/20 07:13 07/08/20 07:13 Other Labs: Lab Results x24hrs 07/08/20 07/08/20 07/07/20 Range/Units 07:13 07:13 15:41 WBC 7.4 (4.8-10.8) x10^3/uL RBC 3.65 L (4.70-6.10) 10^6/uL Hgb 12.4 L (14.0-18.0) g/dL Hct 38.0 L (42.0-52.0) % MCV 104.1 H (80.0-94.0) fL MCH 34.0 H (27.0-31.0) pg MCHC 32.6 (32.0-36.0) g/dL RDW 16.4 H (12.0-15.0) % Plt Count 185 (130-450) 10^3/uL MPV 10.2 (7.4-11.4) fL Neut # (Auto) Not Reportable Lymph # (Auto) Not Reportable [place] # (Auto) Not Reportable Eos # (Auto) Not Reportable Baso # (Auto) Not Reportable Absolute Nucleated RBC Not Reportable Total Counted 100 Band Neuts % (Manual) 3 (0 - 10) % Abnorm Lymph % (Manual) 0 % Nucleated RBC % Not Reportable Neutrophils # (Manual) 6.4 (1.5-6.6) 10^3/uL Lymphocytes # (Manual) 0.6 L (1.5-3.5) 10^3/uL Monocytes # (Manual) 0.4 (0.0-1.0) 10^3/uL Eosinophils # (Manual) 0.0 (0-0.7) 10^3/uL Basophils # (Manual) 0.0 (0-0.1) 10^3/uL Differential Comment MANUAL DIFFERENTIAL WBC Morphology NORMAL APPEARANCE (NORMAL) Platelet Estimate NORMAL (130-450,000) (NORMAL) Platelet Morphology NORMAL APPEARANCE (NORMAL) RBC Morph Micro Appear 1+ POLYCHROMASIA (NORMAL) Sodium 129 L (135-145) mmol/L Potassium 3.9 (3.5-5.0) mmol/L Chloride 100 L (101-111) mmol/L Carbon Dioxide 17 L (21-32) mmol/L Anion Gap 12.0 (6-13) BUN 39 H (6-20) mg/dL Creatinine 2.3 H (0.6-1.2) mg/dL Estimated GFR (MDRD) 27 L (>89) Glucose 93 (70-100) mg/dL Calcium 8.4 L (8.5-10.3) mg/dL Phosphorus 3.9 (2.5-4.6) mg/dL Magnesium 2.0 (1.7-2.8) mg/dL Total Creatine Kinase 1476 H* (22-269) IU/L Urine Color YELLOW Urine Clarity CLEAR (CLEAR) Urine pH 6.0 (5.0-7.5) PH Ur Specific [place] 1.020 (1.002-1.030) Urine Protein 100 H (NEGATIVE) mg/dL Urine Glucose (UA) NEGATIVE (NEGATIVE) mg/dL Urine Ketones NEGATIVE (NEGATIVE) mg/dL Urine Occult Blood LARGE H (NEGATIVE) Urine Nitrite NEGATIVE (NEGATIVE) Urine Bilirubin NEGATIVE (NEGATIVE) Urine Urobilinogen 0.2 (NORMAL) (NORMAL) E.U./dL Ur Leukocyte Esterase TRACE H (NEGATIVE) Urine RBC 11-25 H (0-5) /HPF Urine WBC >25 H (0-3) /HPF Ur Squamous Epith Cells FEW Squamous (<= Few) Urine Bacteria Few (None Seen) /HPF Ur Microscopic Review INDICATED Urine Culture Comments INDICATED Coronavirus (PCR) 07/07/20 Range/Units 01:45 WBC (4.8-10.8) x10^3/uL RBC (4.70-6.10) 10^6/uL Hgb (14.0-18.0) g/dL Hct (42.0-52.0) % MCV (80.0-94.0) fL MCH (27.0-31.0) pg MCHC (32.0-36.0) g/dL RDW (12.0-15.0) % Plt Count (130-450) 10^3/uL MPV (7.4-11.4) fL Neut # (Auto) Lymph # (Auto) [place] # (Auto) Eos # (Auto) Baso # (Auto) Absolute Nucleated RBC Total Counted Band Neuts % (Manual) (0 - 10) % Abnorm Lymph % (Manual) % Nucleated RBC % Neutrophils # (Manual) (1.5-6.6) 10^3/uL Lymphocytes # (Manual) (1.5-3.5) 10^3/uL Monocytes # (Manual) (0.0-1.0) 10^3/uL Eosinophils # (Manual) (0-0.7) 10^3/uL Basophils # (Manual) (0-0.1) 10^3/uL Differential Comment WBC Morphology (NORMAL) Platelet Estimate (NORMAL) Platelet Morphology (NORMAL) RBC Morph Micro Appear (NORMAL) Sodium (135-145) mmol/L Potassium (3.5-5.0) mmol/L Chloride (101-111) mmol/L Carbon Dioxide (21-32) mmol/L Anion Gap (6-13) BUN (6-20) mg/dL Creatinine (0.6-1.2) mg/dL Estimated GFR (MDRD) (>89) Glucose (70-100) mg/dL Calcium (8.5-10.3) mg/dL Phosphorus (2.5-4.6) mg/dL Magnesium (1.7-2.8) mg/dL Total Creatine Kinase (22-269) IU/L Urine Color Urine Clarity (CLEAR) Urine pH (5.0-7.5) PH Ur Specific [place] (1.002-1.030) Urine Protein (NEGATIVE) mg/dL Urine Glucose (UA) (NEGATIVE) mg/dL Urine Ketones (NEGATIVE) mg/dL Urine Occult Blood (NEGATIVE) Urine Nitrite (NEGATIVE) Urine Bilirubin (NEGATIVE) Urine Urobilinogen (NORMAL) E.U./dL Ur Leukocyte Esterase (NEGATIVE) Urine RBC (0-5) /HPF Urine WBC (0-3) /HPF Ur Squamous Epith Cells (<= Few) Urine Bacteria (None Seen) /HPF Ur Microscopic Review Urine Culture Comments Coronavirus (PCR) NEGATIVE ABX Reporting Has patient been on IV antibiotics over the past 48 hours?: Yes Assessment/Plan - Problem List (1) DVT of lower extremity, bilateral Impression: He was started on Lovenox 60 mg twice daily yesterday. Pharmacy reviewed his age and creatinine and changed to 70 mg once a day. Plan: Anticoagulation for minimum of 3 months. I do not think I can trust this gentleman's ability to take Coumadin, so he may have to go home on Eliquis. Even then, I am alarmed at the idea of him taking anticoagulation that is unsupervised. He also has a hx of GI bleed with confirmed duodenal ulcers causing melena in 01/2019. Resume PPI. (2) Atrial fibrillation with RVR Impression: 07/07: This appears to be a new diagnosis for him. His heart is in the 140s but this has improved to the 110s after receiving diltiazem IV in the emergency department. His EKG does not suggest ischemia. His TSH is within normal limits. His troponin eval for KS was 179.8, 189.9, 146.1. This is a relatively flat leveling of high troponins that are high-sensitivity so I think this is demand ischemia from his fast A. fib. We will gave him a one-time dose of Lopressor 5 mg IV now and started him on metoprolol 25 mg twice daily. Rate in the 90s right now Will monitor on telemetry. Echo done and pending. results will be reviewed. Finish work up for Afib including venous dopplers for DVT, already on heparin for DVT prophylaxis. Start anticoagulation when appropriate for CHADs risk 07/08: Start on DVT treatment. Rate 99-119. Increase metoprolol to 50 mg po bid. (3) Rhabdomyolysis Conclusion/Plan: 07/07:His CKs are elevated at nearly 3300. His AST is also slightly elevated. He also has mild acute kidney injury on his chronic kidney disease. This is likely to to his increasing weakness causing him to be sedentary. We gave him a liter of lactated Ringer's over 2 hours and start him on maintenance fluid at 100 mL an hour. We will not aggressively hydrate him given the possible CHF. CPK started at 3326 and it is 2848 this morning. Continue to monitor CPK Continue to treat with very low-dose IV fluids to avoid CHF 07/08: CPK is dropping. He started at 3258 on admission and is 1476 right now. Since creat is nml, stop IVF. Qualifiers: Rhabdomyolysis type: non-traumatic Qualified Code(s): M62.82 - Rhabdomyolysis (4) Acute right sided CHF (congestive heart failure) Conclusion/Plan: 07/07:His chest x-ray does not reveal any pulmonary vascular congestion but his BNP is elevated at nearly 1000 he does have lower extremity edema which she reports is new. Fortunately, he is not hypoxic. This is concerning for possib le CHF. Prior echocardiogram available in 2016 showed a preserved ejection fraction with grade 1 diastolic dysfunction. Plan: gently hydrate him with IV fluids given the rhabdomyolysis. ECHO pending. 07/08:Preliminary echo shows it to be a technically excellent study with an underlying rhythm of A. fib. LVEF mild to moderately impaired with 40 to 45% calculation. RV normal. Severe LAE. Moderate to severe PHILLIP. No aortic stenosis. Mild to moderate secondary mitral regurg. Moderate to severe tricuspid regurg. Mildly to moderately abnormal right heart pressures. RVSP 50 mmHg. When compared to prior echo, pulmonary arterial systolic pressure increased. Mild to moderate pulmonic regurg. IVC is dilated with greater than 50% inspiratory collapse suggestive of RAP 15 mmHg.His right-sided heart failure may be due to the pulmonary embolism. Treatment would be mainly diuretic ther apy. And treatment of the DVT/PE. Unfortunately he is getting IV fluids for rhabdo. Will need to balance his need for the treatment of the rhabdo, versus avoiding fluid overload for right-sided failure. Plan: Stop IVF for now. (5) Elevated troponin Conclusion/Plan: 07/07:His troponin is elevated at nearly 180. He denies any chest pain and his EKG is not suggestive of ischemia. Suspect is likely deand ischemia given the atrial fibrillation, acute kidney injury on chronic kidney disease. We will continue to trend his troponin closely and if it increases, will administer heparin and treat him medically for NSTEMI. He has made it quite clear that he would not want an angiogram and he may even be reluctant for aggressive medical management but we will address that if his troponin rises. Telemetry has not shown anything other than the atrial fibrillation. Repeat troponins are dropping. Confirms most likely demand ischemia. Plan: Continue to monitor on telemetry Continue to monitor for any signs or symptoms of KS 07/08: No troponins today. Patient is comfortable. Just confused.Do not suspect KS. Suspect just RV strain or demand ischemia from the A. fib (6) Acute kidney injury superimposed on chronic kidney disease Conclusion/Plan: 07/07:It is not clear from review of records because of his chronic kidney disease stage III. His baseline creatinine is approximately 2.0. His creatinine is increased at 2.4 and this may be due to the rhabdomyolysis or intravascular depletion. This may also potentially be cardiorenal syndrome as he may have CHF but at this time, he appears intravascularly depleted despite his peripheral edema. Today creat is 2.2 so responding. Plan: Continue to gently hydrate him and monitor his renal function. Avoid nephrotoxins. 07/08: Creatinine is up to 2.3 today. So he is staying within the range of 2.2- 2.4. Baseline is 2.0. CPK is dropping. He started at 3258 on admission and is 1476 right now. will stop IVF for now. If creat goes up, resume but at 85 c c/hr. Bladder scan shows some evidence of retention. He is over 400 cc, voided and still has a postvoid residual of about 133. Will increase Flomax to 0.8 from 0.4. (7) Weakness Conclusion/Plan: 07/07:This is likely multifactorial and due to dehydration and possibly in the atrial fibrillation. He reports being independent at baseline and ambulating without walker or cane. He does not have any focal deficits on exam. Plan: IV hydration. trend his troponin to ensure this is not a NSTEMI. Check for COVID-19 because if he needs SNF for PT they will need that. Do not suspect covid infection at this tme We will encourage him to get out of bed and ambulate. PT to see him today. 07/08: Continues to be weak today. As manifested by him decided to crawl on the floor. I really hate to put him in restraints. We will add Risperdal, low- dose, twice a day to reduce impulsivity.We will also order physical therapy for rehab eval. He is not tachycardic or hypertensive, tremulous or diaphoretic so I do not suspect alcohol withdrawal. (8) Abnormal chest x-ray Conclusion/Plan: 07/06: His chest x-ray did not suggest pulmonary vascular congestion but there was a possible opacity in left mid lung. This was read as possible pneumonia or a confluence of shadows. Although he does have a cough and dyspnea, he was afebrile with no leukocytosis. At this time, we are holding off on starting antibiotics. We will repeat a chest x-ray in the morning and if this opacity persists then will likely start him on empiric antibiotics for pneumonia. 07/07: repeat CXR without infiltrate. (8) Anemia, nonspecific. History of duodenal ulcers. 07/07: He has had a for a while. In the past he is even gotten as low as 6 g of hemoglobin. I will investigate the EMR to see if this is anemia of chronic disease, iron deficiency, etc. 07/08: In looking at his chart in [facility], he has only been seen by Dr. Olson, a [facility] cans vacuum tester/surgeon in January 2019. He is followed by Dr. Shant Melton and we do not have access to those records. EGD was in January 28, 2019 for bleeding. A shallow ulcer was seen in the first portion of the duodenum with a steady ooze of blood. Injected with epi and the bleeding stopped. Second shallow ulcer was seen that was well-healed in the first portion of the duodenum with no evidence of bleeding. Stomach was otherwise normal. Esophagus was otherwise normal. They mention that he had a colonoscopy 2 years previously and it was normal. He was discharged with a hemoglobin of 9.1. Hemoglobin in 2014 was 14. He is also drinks too much and drinks at least 3-4 drinks a day. Was sent home on B12.As such, this gentleman may have con tinued ulcer disease. It is interesting that his hemoglobin is gone from 10.6 on admission to 12.4 today. This may be just because we are feeding him with good nutrition. Will start him on proton pump inhibitor. Especially in view of the fact that he needs to be anticoagulated for the DVT.
--- NOTE | 2020-07-08 15:12 | PHARMACY PROGRESS NOTE ---
- Best Possible Medication History Admit Date and Time: 07/06/20 4030 Processed by: Pharmacy Medication History completed: Yes Patient Interview: Completed As the person ultimately responsible for medication therapy, providers are able to order a medication from an existing home medication list in [facility] via the "Reconcile Routine" prior to Confirmation of that medication by family support coordinator. Such practice is discouraged except when the physician, in their clinical tone gment, deems that a medical need exists for a medication without regard to previous use.
[2020-07-08] MEDS: risperiDONE 0.25 MG TABLET PO SCH ×2 (15:59→21:58)
[2020-07-08] MEDS: METOPROLOL TARTRATE 50 MG TABLET PO SCH ×2 (18:04→21:58)
[2020-07-08] MEDS: PANTOPRAZOLE 40 MG TABLET PO SCH (18:05)
[2020-07-08] MEDS ORDERED: METOPROLOL 5 MG/5 ML VIAL IVP STA (20:06)
[2020-07-08] MEDS: traZODone 50 MG TABLET PO SCH (21:57)
[2020-07-09] MEDS: SODIUM CHLORIDE FLUSH 0.9% 10 ML SYRINGE IVP SCH ×3 (00:41→20:20)
[2020-07-09 04:52] LABS: BASOPHILS % (AUTO) 0.2 %; HGB - HEMOGLOBIN 11.1 g/dL (14.0-18.0); LYMPHOCYTES # (AUTO) 0.4 10^3/uL (1.5-3.5); LYMPHOCYTES % (AUTO) 8.2 %; MEAN CORPUSCULAR HEMOGLOBIN 33.9 pg (27.0-31.0); MEAN CORPUSCULAR HGB CONC 33.5 g/dL (32.0-36.0); MEAN CORPUSCULAR VOLUME 101.2 fL (80.0-94.0); MEAN PLATELET VOLUME 10.1 fL (7.4-11.4); MONOCYTES # (AUTO) 0.2 10^3/uL (0.0-1.0); MONOCYTES % (AUTO) 3.8 %; NEUTROPHILS # (AUTO) 4.5 10^3/uL (1.5-6.6); NEUTROPHILS % (AUTO) 86.8 %; PLT - PLATELET COUNT 193 10^3/uL (130-450); RED BLOOD COUNT 3.27 10^6/uL (4.70-6.10); RED CELL DISTRIBUTION WIDTH 16.1 % (12.0-15.0); WHITE BLOOD COUNT 5.2 x10^3/uL (4.8-10.8)
[2020-07-09 05:08] LABS: CALCIUM 8.2 mg/dL (8.5-10.3); CREATININE 2.3 mg/dL (0.6-1.2); PHOSPHORUS 3.9 mg/dL (2.5-4.6)
[2020-07-09] MEDS: PANTOPRAZOLE 40 MG TABLET PO SCH (06:36)
[2020-07-09] MEDS: METOPROLOL TARTRATE 50 MG TABLET PO SCH (09:15)
[2020-07-09] MEDS: ENOXAPARIN 80 MG/0.8 ML SYRINGE SUBQ SCH ×2 (09:17→11:08)
[2020-07-09] MEDS: CIPROFLOXACIN 200 MG/100 ML 200 MG/100 ML BAG IV SCH ×2 (09:17→21:23)
[2020-07-09] MEDS: TAMSULOSIN 0.4 MG CAPSULE PO SCH (09:17)
[2020-07-09] MEDS: risperiDONE 0.25 MG TABLET PO SCH (09:17)
[2020-07-09] MEDS ORDERED: LACTATED RINGERS 500 ML IV ONE (14:26)
--- NOTE | 2020-07-09 14:29 | PROVIDER PROGRESS NOTE ---
Subjective - Prog Note Date Prog Note Date: 07/09/20 Prog Note Time: 14:35 - Subjective Subjective: he is alert, deaf. but more confused. I had started risperal for his sundowning. Current Medications - Current Medications Current Medications: Active Medications Acetaminophen (Tylenol) 650 mg PO Q4HR PRN PRN Reason: Pain 1 to 4 Last Admin: 07/07/20 21:00 Dose: 650 mg Documented by: Enoxaparin Sodium (Lovenox) 70 mg SUBQ DAILY [facility] Last Admin: 07/09/20 11:08 Dose: Not Given Documented by: Ciprofloxacin (Cipro 200 Mg/100 Ml) 200 mg in 100 mls @ 200 mls/hr IV Q12H [facility] Last Infusion: 07/09/20 11:32 Dose: Infused Documented by: Lactated Ringer's (Lr) 500 mls @ 999 mls/hr IV ONCE ONE Stop: 07/09/20 14:56 Metoprolol Tartrate (Lopressor) 25 mg PO BID [facility] Ondansetron HCl (Zofran Inj) 4 mg IVP Q6HR PRN PRN Reason: Nausea / Vomiting Ondansetron HCl (Zofran Odt) 4 mg TL Q6HR PRN PRN Reason: Nausea / Vomiting Pantoprazole Sodium (Protonix) 40 mg PO QDAC [facility] Last Admin: 07/09/20 06:36 Dose: 40 mg Documented by: Sodium Chloride (Normal Saline Flush 0.9%) 10 ml IVP PRN PRN PRN Reason: NEEDED PER PROVIDER ORDERS Sodium Chloride (Normal Saline Flush 0.9%) 10 ml IVP 0100,0900,1700 [facility] Last Admin: 07/09/20 09:21 Dose: 10 ml Documented by: Tamsulosin HCl (Flomax) 0.8 mg PO DAILY [facility] Last Admin: 07/09/20 09:17 Dose: 0.8 mg Documented by: Trazodone HCl (Desyrel) 25 mg PO QPM [facility] Last Admin: 07/08/20 21:57 Dose: 25 mg Documented by: Zolpidem [Ambien] 5 mg PO HS PRN 01/27/19 Objective - Vital Signs/Intake & Output Reviewed Vital Signs: Yes Vital Signs: Vital Signs x48h Temp Pulse Resp BP BP Pulse Ox 08/23/20 13:59 36.0 C L 103 H 93 H 83/53 L 07/09/20 09:45 103 H 92/60 07/09/20 09:39 36.1 C L 102 H 18 89/62 L 95 07/09/20 09:15 89/62 L Intake & Output: Intake & Output 07/06/20 07/07/20 07/08/20 07/09/20 23:59 23:59 23:59 23:59 Intake Total 3615 2448.33 410 Output Total 237 686 300 Balance 3378 1762.33 110 - Objective General Appearance: positive: No acute distress, Alert (but not oriented at all and the loquacious lively conversationalist from yesterday is not present today. quieter and oriented to person only) Eyes Bilateral: positive: PERRL ENT: positive: No signs of dehydration Neck: positive: No JVD Respiratory: positive: Chest non-tender, No respiratory distress. negative: Wheezes, Rales, Rhonchi Cardiovascular: positive: Irregularly irregular, Tachycardia (but pulse below 110), Systolic murmur. negative: Gallop/S4, Friction rub Abdomen: positive: Non-tender, No organomegaly, Nml bowel sounds, No distention Skin: positive: Warm, Dry Extremities: positive: Full ROM, No pedal edema Neurologic/Psychiatric: positive: CN's nml (2-12), Motor nml (but weak), Disoriented to place, Disoriented to time - Lab Results Fish Bones: 07/09/20 04:36 07/09/20 04:36 Other Labs: Lab Results x24hrs 07/09/20 07/09/20 Range/Units 04:36 04:36 WBC 5.2 (4.8-10.8) x10^3/uL RBC 3.27 L (4.70-6.10) 10^6/uL Hgb 11.1 L (14.0-18.0) g/dL Hct 33.1 L (42.0-52.0) % MCV 101.2 H (80.0-94.0) fL MCH 33.9 H (27.0-31.0) pg MCHC 33.5 (32.0-36.0) g/dL RDW 16.1 H (12.0-15.0) % Plt Count 193 (130-450) 10^3/uL MPV 10.1 (7.4-11.4) fL Neut # (Auto) 4.5 (1.5-6.6) 10^3/uL Lymph # (Auto) 0.4 L (1.5-3.5) 10^3/uL [place] # (Auto) 0.2 (0.0-1.0) 10^3/uL Eos # (Auto) 0.0 (0.0-0.7) 10^3/uL Baso # (Auto) 0.0 (0.0-0.1) 10^3/uL Absolute Nucleated RBC 0.00 x10^3/uL Nucleated RBC % 0.0 /100WBC Sodium 129 L (135-145) mmol/L Potassium 4.0 (3.5-5.0) mmol/L Chloride 100 L (101-111) mmol/L Carbon Dioxide 18 L (21-32) mmol/L Anion Gap 11.0 (6-13) BUN 40 H (6-20) mg/dL Creatinine 2.3 H (0.6-1.2) mg/dL Estimated GFR (MDRD) 27 L (>89) Glucose 101 H (70-100) mg/dL Calcium 8.2 L (8.5-10.3) mg/dL Phosphorus 3.9 (2.5-4.6) mg/dL Magnesium 2.0 (1.7-2.8) mg/dL Total Creatine Kinase 793 H (22-269) IU/L ABX Reporting Has patient been on IV antibiotics over the past 48 hours?: Yes Assessment/Plan - Problem List (1) Hypotension Impression: Yesterday, I increase his Flomax, increasing his metoprolol in an effort to control his symptoms of urination, and control his heart rate. Today he is hypotensive. He denies chest pain, palpitations, shortness of breath. He does not feel his hypotension. Hypotension is been consistent since this morning. My mild worry in this gentleman is that he has a history of duodenal ulcers, now on anticoagulation so I am looking for GI bleed. He also has DVTs, could he be having a PE. None of those symptoms are positive on review of symptoms. Plan: 500 cc bolus LR Bring metoprolol back to 25 twice daily EKG Troponin Reassess (2) DVT of lower extremity, bilateral 07/08:He was started on Lovenox 60 mg twice daily yesterday. Pharmacy reviewed his age and creatinine and changed to 70 mg once a day. Plan: Anticoagulation for minimum of 3 months. I do not think I can trust this gentleman's ability to take Coumadin, so he may have to go home on Eliquis. Even then, I am alarmed at the idea of him taking anticoagulation that is unsupervised. He also has a hx of GI bleed with confirmed duodenal ulcers causing melena in 01/2019. Resume PPI. 07/09: continue lovenox until I can clear his hypotension then transition to NOAC. Consider placement for respite or rehab to follow him more closely once he is discharged (3) Atrial fibrillation with RVR Impression: 07/07: This appears to be a new diagnosis for him. His heart is in the 140s but this has improved to the 110s after receiving diltiazem IV in the emergency department. His EKG does not suggest ischemia. His TSH is within normal whitaker its. His troponin eval for CT was 179.8, 189.9, 146.1. This is a relatively flat leveling of high troponins that are high-sensitivity so I think this is demand ischemia from his fast A. fib. We will gave him a one-time dose of Lopressor 5 mg IV now and started him on metoprolol 25 mg twice daily. Rate in the 90s right now Will monitor on telemetry. Echo done and pending. results will be reviewed. Finish work up for Afib including venous dopplers for DVT, already on heparin for DVT prophylaxis. Start anticoagulation when appropriate for CHADs risk 07/08: Start on DVT treatment. Rate 99-119. Increase metoprolol to 50 mg po bid. 07/09: now with hypotension, reduce the metoprolol to 25 bid (4) Rhabdomyolysis resolved Conclusion/Plan: 07/07:His CKs are elevated at nearly 3300. His AST is also slightly elevated. He also has mild acute kidney injury on his chronic kidney disease. This is likely to to his increasing weakness causing him to be sedentary. We gave him a liter of lactated Ringer's over 2 hours and start him on maintenance fluid at 100 mL an hour. We will not aggressively hydrate him given the possible CHF. CPK started at 3326 and it is 2848 this morning. Continue to monitor CPK Continue to treat with very low-dose IV fluids to avoid CHF 07/08: CPK is dropping. He started at 3258 on admission and is 1476 right now. Since creat is nml, stop IVF. 07/09: CPK is 793 today. Fluid bolus for low BP but not for cpk Qualifiers: Rhabdomyolysis type: non-traumatic Qualified Code(s): M62.82 - Rhabdomyolysis (5) Acute right sided CHF (congestive heart failure) Conclusion/Plan: 07/07:His chest x-ray does not reveal any pulmonary vascular congestion but his BNP is elevated at nearly 1000 he does have lower extremity edema which she reports is new. Fortunately, he is not hypoxic. This is concerning for possible CHF. Prior echocardiogram available in 2016 showed a preserved ejection fraction with grade 1 diastolic dysfunction. Plan: gently hydrate him with IV fluids given the rhabdomyolysis. ECHO pending. 07/08:Preliminary echo shows it to be a technically excellent study with an underlying rhythm of A. fib. LVEF mild to moderately impaired with 40 to 45% calculation. RV normal. Severe LAE. Moderate to severe PHILLIP. No aortic stenosis. Mild to moderate secondary mitral regurg. Moderate to severe tricu spid regurg. Mildly to moderately abnormal right heart pressures. RVSP 50 mmHg. When compared to prior echo, pulmonary arterial systolic pressure increased. Mild to moderate pulmonic regurg. IVC is dilated with greater than 50% inspiratory collapse suggestive of RAP 15 mmHg.His right-sided heart failure may be due to the pulmonary embolism. Treatment would be mainly diuretic therapy. And treatment of the DVT/PE. Unfortunately he is getting IV fluids for rhabdo. Will need to balance his need for the treatment of the rhabdo, versus avoiding fluid overload for right-sided failure. Plan: Stop IVF for now. 07/09: watch for fluid overload since I am giving him a bolus (6) Elevated troponin Conclusion/Plan: 07/07:His troponin is elevated at nearly 180. He denies any chest pain and his EKG is not suggestive of ischemia. Suspect is likely deand ischemia given the atrial fibrillation, acute kidney injury on chronic kidney disease. We will continue to trend his troponin closely and if it increases, will administer heparin and treat him medically for NSTEMI. He has made it quite clear that he would not want an angiogram and he may even be reluctant for aggressive medical management but we will address that if his troponin rises. Telemetry has not shown anything other than the atrial fibrillation. Repeat troponins are dropping. Confirms most likely demand ischemia. Plan: Continue to monitor on telemetry Continue to monitor for any signs or symptoms of CT 07/08: No troponins today. Patient is comfortable. Just confused.Do not suspect CT. Suspect just RV strain or demand ischemia from the A. fib 07/09: with drop in pressure, check EKG and troponin. Tele with afib (7) Acute kidney injury superimposed on chronic kidney disease Conclusion/Plan: 07/07:It is not clear from review of records because of his chronic kidney disease stage III. His baseline creatinine is approximately 2.0. His creatinine is increased at 2.4 and this may be due to the rhabdomyolysis or intravascular depletion. This may also potentially be cardiorenal syndrome as he may have CHF but at this time, he appears intravascularly depleted despite his peripheral edema. Today creat is 2.2 so responding. Plan: Continue to gently hydrate him and monitor his renal function. Avoid nephrotoxins. 07/08: Creatinine is up to 2.3 today. So he is staying within the range of 2.2- 2.4. Baseline is 2.0. CPK is dropping. He started at 3258 on admission and is 1476 right now. will stop IVF for now. If creat goes up, resume but at 85 cc/hr. Bladder scan shows some evidence of retention. He is over 400 cc, voided and still has a postvoid residual of about 133. Will increase Flomax to 0.8 from 0.4. 07/09: the drop in pressure could be from increasing the flomax as well. Creat is stable. reduce back to 0.4 (8) Weakness Conclusion/Plan: 07/07:This is likely multifactorial and due to dehydration and possibly in the atrial fibrillation. He reports being independent at baseline and ambulating without walker or cane. He does not have any focal deficits on exam. Plan: IV hydration. trend his troponin to ensure this is not a NSTEMI. Check for COVID-19 because if he needs SNF for PT they will need that. Do not suspect covid infection at this tme We will encourage him to get out of bed and ambulate. PT to see him today. 07/08: Continues to be weak today. As manifested by him decided to crawl on the floor. I really hate to put him in restraints. We will add Risperdal, low- dose, twice a day to reduce impulsivity.We will also order physical therapy for rehab eval. He is not tachycardic or hypertensive, tremulous or diaphoretic so I do not suspect alcohol withdrawal. 07/09: too sleepy. stop risperdal. Really think he will need respite vs. SNF. PT will continue to work with him and we will decide once his rate is under control. (9) Abnormal chest x-ray Conclusion/Plan: 07/06: His chest x-ray did not suggest pulmonary vascular congestion but there was a possible opacity in left mid lung. This was read as possible pneumonia or a confluence of shadows. Although he does have a cough and dyspnea, he was afebrile with no leukocytosis. At this time, we are holding off on starting antibiotics. We will repeat a chest x-ray in the morning and if this opacity persists then will likely start him on empiric antibiotics for pneumonia. 07/07: repeat CXR without infiltrate. (10) Anemia, nonspecific. History of duodenal ulcers. 07/07: He has had a for a while. In the past he is even gotten as low as 6 g of hemoglobin. I will investigate the EMR to see if this is anemia of chronic disease, iron deficiency, etc. 07/08: In looking at his chart in [facility], he has only been seen by Dr. Olson, a [facility] residential aide/surgeon in January 2019. He is followed by Dr. Shant Melton and we do not have access to those records. EGD was in January 28, 2019 for bleeding. A shallow ulcer was seen in the first portion of the duodenum with a steady ooze of blood. Injected with epi and the bleeding stopped. Second shallow ulcer was seen that was well-healed in the first portion of the duodenum with no evidence of bleeding. Stomach was otherwise normal. Esophagus was otherwise normal. They mention that he had a colonoscopy 2 years previously and it was normal. He was discharged with a hemoglobin of 9.1. Hemoglobin in 2014 was 14. He is also drinks too much and drinks at least 3-4 drinks a day. Was sent home on B12.As such, this gentleman may have cont inued ulcer disease. It is interesting that his hemoglobin is gone from 10.6 on admission to 12.4 today. This may be just because we are feeding him with good nutrition. Will start him on proton pump inhibitor. Especially in view of the fact that he needs to be anticoagulated for the DVT. 07/09: Hgb is 11.1 and stable
[2020-07-09] MEDS: APIXABAN 5 MG TABLET PO SCH (20:20)
[2020-07-09] MEDS: METOPROLOL TARTRATE 25 MG TABLET PO SCH (20:21)
[2020-07-09] MEDS: traZODone 50 MG TABLET PO SCH (20:21)
[2020-07-09] MEDS: SODIUM CHLORIDE FLUSH 0.9% 10 ML SYRINGE IVP PRN (21:23)
[2020-07-10] MEDS: SODIUM CHLORIDE FLUSH 0.9% 10 ML SYRINGE IVP SCH ×3 (00:36→16:59)
[2020-07-10 05:43] LABS: BASOPHILS % (AUTO) 0.2 %; EOSINOPHILS % (AUTO) 0.2 %; HGB - HEMOGLOBIN 9.9 g/dL (14.0-18.0); LYMPHOCYTES # (AUTO) 0.4 10^3/uL (1.5-3.5); LYMPHOCYTES % (AUTO) 7.3 %; MEAN CORPUSCULAR HEMOGLOBIN 33.6 pg (27.0-31.0); MEAN CORPUSCULAR HGB CONC 33.7 g/dL (32.0-36.0); MEAN CORPUSCULAR VOLUME 99.7 fL (80.0-94.0); MEAN PLATELET VOLUME 9.9 fL (7.4-11.4); MONOCYTES # (AUTO) 0.2 10^3/uL (0.0-1.0); MONOCYTES % (AUTO) 4.9 %; NEUTROPHILS # (AUTO) 4.2 10^3/uL (1.5-6.6); NEUTROPHILS % (AUTO) 86.2 %; PLT - PLATELET COUNT 173 10^3/uL (130-450); RED BLOOD COUNT 2.95 10^6/uL (4.70-6.10); RED CELL DISTRIBUTION WIDTH 16.1 % (12.0-15.0); WHITE BLOOD COUNT 4.9 x10^3/uL (4.8-10.8)
[2020-07-10] MEDS: PANTOPRAZOLE 40 MG TABLET PO SCH (05:55)
[2020-07-10 05:56] LABS: CALCIUM 8.1 mg/dL (8.5-10.3); CREATININE 2.5 mg/dL (0.6-1.2); MAGNESIUM 1.9 mg/dL (1.7-2.8); PHOSPHORUS 3.5 mg/dL (2.5-4.6)
[2020-07-10] MEDS: TAMSULOSIN 0.4 MG CAPSULE PO SCH (08:28)
[2020-07-10] MEDS: APIXABAN 5 MG TABLET PO SCH ×2 (08:28→21:15)
[2020-07-10] MEDS: METOPROLOL TARTRATE 25 MG TABLET PO SCH ×2 (08:29→21:16)
[2020-07-10] MEDS: ACETAMINOPHEN 325 MG TABLET PO PRN (08:29)
[2020-07-10] MEDS: CIPROFLOXACIN 250 MG TABLET PO SCH (11:23)
[2020-07-10] MEDS ORDERED: METOPROLOL 5 MG/5 ML VIAL IVP STA (12:06)
[2020-07-10] MEDS: SODIUM CHLORIDE FLUSH 0.9% 10 ML SYRINGE IVP PRN (12:41)
[2020-07-10] MEDS ORDERED: LACTATED RINGERS 500 ML IV ONE (13:18)
--- NOTE | 2020-07-10 13:24 | PROVIDER PROGRESS NOTE ---
Subjective - Prog Note Date Prog Note Date: 07/10/20 Prog Note Time: 13:22 - Subjective Pt reports feeling: No change Subjective: his new complaint is bilateral foot pain. he complains bitterly over the use of krishna hose and wants them off. Current Medications - Current Medications Current Medications: Active Medications Acetaminophen (Tylenol) 650 mg PO Q4HR PRN PRN Reason: Pain 1 to 4 Last Admin: 07/10/20 08:29 Dose: 650 mg Documented by: Apixaban (Eliquis) 10 mg PO BID [facility] Stop: 07/16/20 09:01 Last Admin: 07/10/20 08:28 Dose: 10 mg Documented by: Apixaban (Eliquis) 5 mg PO BID [facility] Ciprofloxacin (Cipro) 500 mg PO DAILY [facility] Last Admin: 07/10/20 11:23 Dose: 500 mg Documented by: Digoxin (Lanoxin Inj) 250 mcg IVP QID [facility] Lactated Ringer's (Lr) 500 mls @ 999 mls/hr IV ONCE ONE Stop: 07/10/20 13:48 Metoprolol Tartrate (Lopressor) 50 mg PO BID [facility] Ondansetron HCl (Zofran Inj) 4 mg IVP Q6HR PRN PRN Reason: Nausea / Vomiting Ondansetron HCl (Zofran Odt) 4 mg TL Q6HR PRN PRN Reason: Nausea / Vomiting Pantoprazole Sodium (Protonix) 40 mg PO QDAC [facility] Last Admin: 07/10/20 05:55 Dose: 40 mg Documented by: Sodium Chloride (Normal Saline Flush 0.9%) 10 ml IVP PRN PRN PRN Reason: NEEDED PER PROVIDER ORDERS Last Admin: 07/10/20 12:41 Dose: 10 ml Documented by: Sodium Chloride (Normal Saline Flush 0.9%) 10 ml IVP 0100,0900,1700 [facility] Last Admin: 07/10/20 11:23 Dose: 10 ml Documented by: Tamsulosin HCl (Flomax) 0.8 mg PO DAILY [facility] Last Admin: 07/10/20 08:28 Dose: 0.8 mg Documented by: Trazodone HCl (Desyrel) 25 mg PO QPM [facility] Last Admin: 07/09/20 20:21 Dose: 25 mg Documented by: Zolpidem [Ambien] 5 mg PO HS PRN 01/27/19 Objective - Vital Signs/Intake & Output Reviewed Vital Signs: Yes Vital Signs: Vital Signs x48h Temp Pulse Pulse Pulse Pulse Resp BP 07/10/20 12:45 113 H 07/10/20 12:40 112 H 07/10/20 12:27 36.4 C L 114 H 18 07/10/20 11:10 125 H 116 H 116 H 128/78 07/10/20 08:20 36.4 C L 132 H 17 BP BP BP Pulse Ox Pulse Ox Pulse Ox 07/10/20 12:45 102/64 07/10/20 12:40 98/70 07/10/20 12:27 111/78 95 07/10/20 11:10 111/78 119/86 H 92 93 07/10/20 08: 120/88 H 92 Intake & Output: Intake & Output 07/07/20 07/08/20 07/09/20 07/10/20 23:59 23:59 23:59 23:59 Intake Total 3615 2448.33 1110 Output Total 237 686 500 625 Balance 3378 1762.33 610 -625 - Objective General Appearance: positive: Alert, Other (intermittently confused, sometimes worse, sometimes better with today not being so sleepy once the risperdal dc'd) Eyes Bilateral: positive: PERRL, EOMI Neck: positive: No JVD Respiratory: positive: Chest non-tender, No respiratory distress. negative: Rales Cardiovascular: positive: Irregularly irregular, Tachycardia, Systolic murmur. negative: Gallop/S4, Friction rub Abdomen: positive: Non-tender, No organomegaly, Nml bowel sounds, No distention Skin: positive: Warm, Dry Extremities: positive: Full ROM, Pedal edema (trace and nonpitting) Neurologic/Psychiatric: positive: CN's nml (2-12), Disoriented to place, Disoriented to time. negative: Motor nml (weak, impulsive and risk for falls due to balance and weakness. no focal deficits) - Lab Results Fish Bones: 07/10/20 05:25 07/10/20 05:25 Other Labs: Lab Results x24hrs 07/10/20 07/10/20 Range/Units 05:25 05:25 WBC 4.9 (4.8-10.8) x10^3/uL RBC 2.95 L (4.70-6.10) 10^6/uL Hgb 9.9 L (14.0-18.0) g/dL Hct 29.4 L (42.0-52.0) % MCV 99.7 H (80.0-94.0) fL MCH 33.6 H (27.0-31.0) pg MCHC 33.7 (32.0-36.0) g/dL RDW 16.1 H (12.0-15.0) % Plt Count 173 (130-450) 10^3/uL MPV 9.9 (7.4-11.4) fL Neut # (Auto) 4.2 (1.5-6.6) 10^3/uL Lymph # (Auto) 0.4 L (1.5-3.5) 10^3/uL Reagan # (Auto) 0.2 (0.0-1.0) 10^3/uL Eos # (Auto) 0.0 (0.0-0.7) 10^3/uL Baso # (Auto) 0.0 (0.0-0.1) 10^3/uL Absolute Nucleated RBC 0.00 x10^3/uL Nucleated RBC % 0.0 /100WBC Sodium 128 L (135-145) mmol/L Potassium 3.7 (3.5-5.0) mmol/L Chloride 101 (101-111) mmol/L Carbon Dioxide 20 L (21-32) mmol/L Anion Gap 7.0 (6-13) BUN 41 H (6-20) mg/dL Creatinine 2.5 H (0.6-1.2) mg/dL Estimated GFR (MDRD) 25 L (>89) Glucose 119 H (70-100) mg/dL Calcium 8.1 L (8.5-10.3) mg/dL Phosphorus 3.5 (2.5-4.6) mg/dL Magnesium 1.9 (1.7-2.8) mg/dL ABX Reporting Has patient been on IV antibiotics over the past 48 hours?: Yes Assessment/Plan - Problem List (1) Hypotension Impression: 07/08: I increased his Flomax, increasing his metoprolol in an effort to control his symptoms of urination, and control his heart rate. Today he is hypotensive. He denies chest pain, palpitations, shortness of breath. He does not feel his hypotension. Hypotension is been consistent since this morning. My mild worry in this gentleman is that he has a history of duodenal ulcers, now on anticoagulation so I am looking for GI bleed. He also has DVTs, could he be having a PE. None of those symptoms are positive on review of symptoms. Plan: 500 cc bolus LR Bring metoprolol back to 25 twice daily EKG Troponin Reassess 07/09: did well with reducing his doses but pulse is up 07/10: I increased metoprolol again to control rate and back to being hypotensive. Another bolus of 500 cc. (2) DVT of lower extremity, bilateral 07/08:He was started on Lovenox 60 mg twice daily yesterday. Pharmacy reviewed his age and creatinine and changed to 70 mg once a day. Plan: Anticoagulation for minimum of 3 months. I do not think I can trust this gentleman's ability to take Coumadin, so he may have to go home on Eliquis. Even then, I am alarmed at the idea of him taking anticoagulation that is unsupervised. He also has a hx of GI bleed with confirmed duodenal ulcers causing melena in 01/2019. Resume PPI. 07/09: continue lovenox until I can clear his hypotension then transition to CHIKIS C. Consider placement for respite or rehab to follow him more closely once he is discharged 07/10: Started on Eliquis yesterday. will stop Krishna harris since he's so upset about them (3) Atrial fibrillation with RVR Impression: 07/07: This appears to be a new diagnosis for him. His heart is in the 140s but this has improved to the 110s after receiving diltiazem IV in the emergency department. His EKG does not suggest ischemia. His TSH is within normal l imits. His troponin eval for ID was 179.8, 189.9, 146.1. This is a relatively flat leveling of high troponins that are high-sensitivity so I think this is demand ischemia from his fast A. fib. We will gave him a one-time dose of Lopressor 5 mg IV now and started him on metoprolol 25 mg twice daily. Rate in the 90s right now Will monitor on telemetry. Echo done and pending. results will be reviewed. Finish work up for Afib including venous dopplers for DVT, already on heparin for DVT prophylaxis. Start anticoagulation when appropriate for CHADs risk 07/08: Start on DVT treatment. Rate 99-119. Increase metoprolol to 50 mg po bid. 07/09: now with hypotension, reduce the metoprolol to 25 bid 07/10: again, I increased metoprolol for rate control. gave one dose of (4) Rhabdomyolysis resolved Conclusion/Plan: 07/07:His CKs are elevated at nearly 3300. His AST is also slightly elevated. He also has mild acute kidney injury on his chronic kidney disease. This is likely to to his increasing weakness causing him to be sedentary. We gave him a liter of lactated Ringer's over 2 hours and start him on maintenance fluid at 100 mL an hour. We will not aggressively hydrate him given the possible CHF. CPK started at 3326 and it is 2848 this morning. Continue to monitor CPK Continue to treat with very low-dose IV fluids to avoid CHF 07/08: CPK is dropping. He started at 3258 on admission and is 1476 right now. Since creat is nml, stop IVF. 07/09: CPK is 793 today. Fluid bolus for low BP but not for cpk Qualifiers: Rhabdomyolysis type: non-traumatic Qualified Code(s): M62.82 - Rhabdomyolysis (5) Acute right sided CHF (congestive heart failure) Conclusion/Plan: 07/07:His chest x-ray does not reveal any pulmonary vascular congestion but his BNP is elevated at nearly 1000 he does have lower extremity edema which she reports is new. Fortunately, he is not hypoxic. This is concerning for possible CHF. Prior echocardiogram available in 2016 showed a preserved ejection fraction with grade 1 diastolic dysfunction. Plan: gently hydrate him with IV fluids given the rhabdomyolysis. ECHO pending. 07/08:Preliminary echo shows it to be a technically excellent study with an underlying rhythm of A. fib. LVEF mild to moderately impaired with 40 to 45% calculation. RV normal. Severe LAE. Moderate to severe PHILLIP. No aortic st enosis. Mild to moderate secondary mitral regurg. Moderate to severe tricuspid regurg. Mildly to moderately abnormal right heart pressures. RVSP 50 mmHg. When compared to prior echo, pulmonary arterial systolic pressure increased. Mild to moderate pulmonic regurg. IVC is dilated with greater than 50% inspiratory collapse suggestive of RAP 15 mmHg.His right-sided heart failure may be due to the pulmonary embolism. Treatment would be mainly diuretic therapy. And treatment of the DVT/PE. Unfortunately he is getting IV fluids for rhabdo. Will need to balance his need for the treatment of the rhabdo, versus avoiding fluid overload for right-sided failure. Plan: Stop IVF for now. 07/09: watch for fluid overload since I am giving him a bolus (6) Elevated troponin Conclusion/Plan: 07/07:His troponin is elevated at nearly 180. He denies any chest pain and his EKG is not suggestive of ischemia. Suspect is likely deand ischemia given the atrial fibrillation, acute kidney injury on chronic kidney disease. We will continue to trend his troponin closely and if it increases, will administer heparin and treat him medically for NSTEMI. He has made it quite clear that he would not want an angiogram and he may even be reluctant for aggressive medical management but we will address that if his troponin rises. Telemetry has not shown anything other than the atrial fibrillation. Repeat troponins are dropping. Confirms most likely demand ischemia. Plan: Continue to monitor on telemetry Continue to monitor for any signs or symptoms of ID 07/08: No troponins today. Patient is comfortable. Just confused.Do not suspect ID. Suspect just RV strain or demand ischemia from the A. fib 07/09: with drop in pressure, check EKG and troponin. Tele with afib (7) Acute kidney injury superimposed on chronic kidney disease Conclusion/Plan: 07/07:It is not clear from review of records because of his chronic kidney disease stage III. His baseline creatinine is approximately 2.0. His creatinine is increased at 2.4 and this may be due to the rhabdomyolysis or intravascular depletion. This may also potentially be cardiorenal syndrome as he may have CHF but at this time, he appears intravascularly depleted despite his peripheral edema. Today creat is 2.2 so responding. Plan: Continue to gently hydrate him and monitor his renal function. Avoid nephrotoxins. 07/08: Creatinine is up to 2.3 today. So he is staying within the range of 2.2- 2.4. Baseline is 2.0. CPK is dropping. He started at 3258 on admission and is 1476 right now. will stop IVF for now. If creat goes up, resume but at 85 cc/h r. Bladder scan shows some evidence of retention. He is over 400 cc, voided and still has a postvoid residual of about 133. Will increase Flomax to 0.8 from 0.4. 07/09: the drop in pressure could be from increasing the flomax as well. Creat is stable. reduce back to 0.4 (8) Weakness Conclusion/Plan: 07/07:This is likely multifactorial and due to dehydration and possibly in the atrial fibrillation. He reports being independent at baseline and ambulating without walker or cane. He does not have any focal deficits on exam. Plan: IV hydration. trend his troponin to ensure this is not a NSTEMI. Check for COVID-19 because if he needs SNF for PT they will need that. Do not suspect covid infection at this tme We will encourage him to get out of bed and ambulate. PT to see him today. 07/08: Continues to be weak today. As manifested by him decided to crawl on the floor. I really hate to put him in restraints. We will add Risperdal, low-dos e, twice a day to reduce impulsivity.We will also order physical therapy for rehab eval. He is not tachycardic or hypertensive, tremulous or diaphoretic so I do not suspect alcohol withdrawal. 07/09: too sleepy. stop risperdal. Really think he will need respite vs. SNF. PT will continue to work with him and we will decide once his rate is under control. (9) Abnormal chest x-ray Conclusion/Plan: 07/06: His chest x-ray did not suggest pulmonary vascular congestion but there was a possible opacity in left mid lung. This was read as possible pneumonia or a confluence of shadows. Although he does have a cough and dyspnea, he was afebrile with no leukocytosis. At this time, we are holding off on starting antibiotics. We will repeat a chest x-ray in the morning and if this opacity persists then will likely start him on empiric antibiotics for pneumonia. 07/07: repeat CXR without infiltrate. (10) Anemia, nonspecific. History of duodenal ulcers. 07/07: He has had a for a while. In the past he is even gotten as low as 6 g of hemoglobin. I will investigate the EMR to see if this is anemia of chronic disease, iron deficiency, etc. 07/08: In looking at his chart in [facility], he has only been seen by Dr. Olson, a [facility] loan review officer/surgeon in January 2019. He is followed by Dr. Shant Melton and we do not have access to those records. EGD was in January 28, 2019 for bleeding. A shallow ulcer was seen in the first portion of the duodenum with a steady ooze of blood. Injected with epi and the bleeding stopped. Second shallow ulcer was seen that was well-healed in the first portion of the duodenum with no evidence of bleeding. Stomach was otherwise normal. Esophagus was otherwise normal. They mention that he had a colonoscopy 2 years previously and it was normal. He was discharged with a hemoglobin of 9.1. Hemoglobin in 2013 was 14. He is also drinks too much and drinks at least 3-4 drinks a day. Was sent home on B12.As such, this gentleman may have continued ulcer disease. It is interesting that his hemoglobin is gone from 10.6 on admission to 12.4 today. This may be just because we are feeding him with good nutrition. Will start him on proton pump inhibitor. Especially in view of the fact that he needs to be anticoagulated for the DVT. 07/09: Hgb is 11.1 and stable
[2020-07-10] MEDS ORDERED: DIGOXIN 500 MCG/2 ML AMP IVP SCH (14:00)
[2020-07-10] MEDS: SACCHAROMYCES BOULARDII 250 MG CAPSULE PO SCH (17:00)
[2020-07-10] MEDS: DIGOXIN 500 MCG/2 ML AMP IVP SCH (20:07)
[2020-07-10] MEDS: traZODone 50 MG TABLET PO SCH (21:15)
[2020-07-11] MEDS: DIGOXIN 500 MCG/2 ML AMP IVP SCH (01:35)
[2020-07-11] MEDS: SODIUM CHLORIDE FLUSH 0.9% 10 ML SYRINGE IVP SCH ×3 (01:35→16:25)
[2020-07-11 05:23] LABS: BASOPHILS % (AUTO) 0.2 %; EOSINOPHILS % (AUTO) 0.2 %; HGB - HEMOGLOBIN 10.7 g/dL (14.0-18.0); LYMPHOCYTES # (AUTO) 0.4 10^3/uL (1.5-3.5); LYMPHOCYTES % (AUTO) 7.9 %; MEAN CORPUSCULAR HGB CONC 33.9 g/dL (32.0-36.0); MEAN CORPUSCULAR VOLUME 100.3 fL (80.0-94.0); MEAN PLATELET VOLUME 9.8 fL (7.4-11.4); MONOCYTES # (AUTO) 0.3 10^3/uL (0.0-1.0); MONOCYTES % (AUTO) 4.8 %; NEUTROPHILS # (AUTO) 4.5 10^3/uL (1.5-6.6); NEUTROPHILS % (AUTO) 85.6 %; PLT - PLATELET COUNT 188 10^3/uL (130-450); RED BLOOD COUNT 3.15 10^6/uL (4.70-6.10); RED CELL DISTRIBUTION WIDTH 16.7 % (12.0-15.0); WHITE BLOOD COUNT 5.2 x10^3/uL (4.8-10.8)
[2020-07-11 05:34] LABS: CALCIUM 8.7 mg/dL (8.5-10.3); CREATININE 2.4 mg/dL (0.6-1.2); PHOSPHORUS 3.7 mg/dL (2.5-4.6)
[2020-07-11] MEDS: PANTOPRAZOLE 40 MG TABLET PO SCH (05:56)
[2020-07-11 06:02] LABS: FOLATE 4.83 ng/mL (5.90 - >24.8)
[2020-07-11 07:20] LABS: DIGOXIN 1.7 ng/mL
[2020-07-11] MEDS: SACCHAROMYCES BOULARDII 250 MG CAPSULE PO SCH (09:00)
[2020-07-11] MEDS ORDERED: FOLIC ACID 1 MG TABLET PO SCH (09:00)
[2020-07-11] MEDS: CIPROFLOXACIN 250 MG TABLET PO SCH (09:00)
[2020-07-11] MEDS: PRENATAL VITAMIN TABLET PO SCH ×2 (09:01→10:23)
[2020-07-11] MEDS: APIXABAN 5 MG TABLET PO SCH ×4 (09:01→21:10)
[2020-07-11] MEDS: METOPROLOL TARTRATE 25 MG TABLET PO SCH ×3 (09:01→21:10)
[2020-07-11] MEDS: TAMSULOSIN 0.4 MG CAPSULE PO SCH ×2 (09:02→10:23)
[2020-07-11] MEDS: THIAMINE 100 MG TABLET PO SCH ×2 (09:03→10:23)
[2020-07-11] MEDS: SODIUM CHLORIDE 0.9% 1,000 ML IV SCH ×2 (10:45→21:12)
--- NOTE | 2020-07-11 12:51 | PROVIDER PROGRESS NOTE ---
Assessment/Plan - Problem List (1) Atrial fibrillation with RVR Assessment/Plan: Heart rate has improved from 140's at admission, now 90s to 115 in A. fib. He is on a higher dose of metoprolol, increased to 50 mg twice daily and he got Digitalized overnight. The Dig level this morning is 1.7 (toxic is at 2 or higher). We will stop Digoxin because of the CKD and do daily Dig levels. He may be able to be dosed with Dig on Fridays. Not ready for discharge due to hypotension and needing med changes. (2) DVT of lower extremity, bilateral Assessment/Plan: Lovenox has been changed to Eliquis, there are no signs of bleeding on this high Eliquis dose. (3) Hypotension Assessment/Plan: Pressure drops below 100 after getting tamsulosin and his metoprolol. For this reason dig had to be used for rate control. Today Blood pressure dropped to 83/53 with map of 60, 1/2-hour later 88/59. We will decrease his metoprolol 50 twice daily down to 37.5 twice daily. We will decrease his tamsulosin from 0.8 mg daily to 0.4 mg daily. Will resume IV saline for 2 more liters Not ready for Dch due to these and other med changes. (4) Acute kidney injury superimposed on chronic kidney disease Assessment/Plan: This patient's baseline creatinine was 2.2 and 2019. He is running 2.4-2.5 here. Continue to avoid nephrotoxins, and no diuretics because of this CKD. Will resume IV saline for 2 more liters Follow BMP daily. (5) Rhabdomyolysis Qualifiers: Rhabdomyolysis type: non-traumatic Qualified Code(s): M62.82 - Rhabdomyolysis Assessment/Plan: His CK has improved from 3000 to 793 today. Continue with very gentle IV hydration for this. Will resume IV saline for 2 more liters (6) Systolic heart failure Assessment/Plan: Borderline-low normal LVEF of 50%. (7) Dementia Assessment/Plan: The patient requires major cueing and has difficulty following commands, documented by Physical Therapist. He could not remember if he had any stairs to climb in his house. His answers are tangential and sometimes entirely off topic. Will request occupational therapy to perform cognitive eval. Will consider CT of the head (we have no CT availability today, until manny, or for the last several days), to eval for brain pathology. Continue with empiric Thiamine dosing because of the alcohol intake history. Social work has tried to reach relatives and apparently he has no living relatives whatsoever. There are 2 friends who have been contacted: 1 says she does not know enough about him, the other is going to clean his house today and help with paying his overdue rent. There has been an APS report placed and he may need [facility] for finding him a new housing location, since it is not a safe discharge to send him home alone. He personally is unable to make decisions about placement, in my opinion. (8) Anemia Assessment/Plan: Hgb has dropped to 10. Possibly due to hemodilution but he has a Hx of duodenal bleeding ulcer. B12 level is OK and folate level low, he is on Folate daily with his MOV already ordered. 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 He may have Wernicke's encephalopathy, explaining the confusion/dimension. He was already started on empiric daily oral thiamine. Will order a CIWA protocol with order to inform provider prn if he scores >4, to consider benzodiazepine, not automatic treatment since it may confuse him more. (10) Weakness Assessment/Plan: This was his complaint at presentation in the ER. It could be from his systolic heart failure, tachycardia or anemia. In addition his poor appetite, uremia, alcohol use are adding to weakness. Continue to work with PT daily (11) Hyponatremia Assessment/Plan: Resolved after several days of getting IV hydration. It was likely hypovolemic hyponatremia since he had decreased p.o. intake due to poor appetite. - Current Meds Current Meds: Current Medications Generic Name Dose Route Start Last Admin Trade Name Freq PRN Reason Stop Dose Admin Acetaminophen 650 mg 07/06/20 23:52 07/10/20 08:29 Tylenol PO 650 mg Q4HR PRN Administration Pain 1 to 4 Apixaban 10 mg 07/09/20 21:00 07/11/20 10:23 Eliquis PO 07/16/20 09:01 Not Given BID JOSE LUIS Sodium Chloride 1,000 mls @ 50 mls/hr 07/11/20 10:00 07/11/20 10:45 Normal Saline 0.9% IV 07/13/20 01:59 50 mls/hr .Q20H JOSE LUIS Administration Pantoprazole Sodium 40 mg 07/08/20 18:00 07/11/20 05:56 Protonix PO 40 mg QDAC JOSE LUIS Administration Multivit/Folic Acid/Iron 1 tab 07/11/20 08:00 07/11/20 10:23 Trinatal Rx 1 PO Not Given DAILYWM JOSE LUIS Sodium Chloride 10 ml 07/06/20 23:52 07/10/20 12:41 Normal Saline Flush 0.9% IVP 10 ml PRN PRN Administration NEEDED PER PROVIDER ORDERS Sodium Chloride 10 ml 07/07/20 01:00 07/11/20 09:03 Normal Saline Flush 0.9% IVP 10 ml 0100,0900,1700 JOSE LUIS Administration Tamsulosin HCl 0.8 mg 07/09/20 09:00 07/11/20 10:23 Flomax PO Not Given DAILY JOSE LUIS Thiamine HCl 100 mg 07/11/20 09:00 07/11/20 10:23 Vitamin B-1 PO Not Given DAILY JOSE LUIS Trazodone HCl 25 mg 07/07/20 21:00 07/10/20 21:15 Desyrel PO 25 mg QPM JOSE LUIS Administration - Lab Result Fish Bone Diagrams: 07/11/20 05:09 07/11/20 05:09 - Additional Planning My Orders: My Active Orders 07/11/20 10:00 Sodium Chloride 0.9% [Normal Saline 0.9%] 1,000 ml IV 50 mls/hr 07/11/20 21:00 Metoprolol Tartrate [Lopressor] 37.5 mg PO BID 07/12/20 05:00 BMP - BASIC METABOLIC PANEL [CHEM] DAILYLAB DIGOXIN [CHEM] DAILYLAB 07/13/20 05:00 BMP - BASIC METABOLIC PANEL [CHEM] DAILYLAB DIGOXIN [CHEM] DAILYLAB 07/14/20 05:00 BMP - BASIC METABOLIC PANEL [CHEM] DAILYLAB Subjective - Subjective Patient Reports: Resting Comfortably Nursing Reports: Other (Stares into space, needs repeat cuing to do something) Objective Vital Signs: Vital Signs - 24 hr 07/10/20 07/10/20 07/10/20 12:55 13:10 13:30 Temperature Heart Rate Heart Rate [ 101 H 141 H 113 H Brachial] Heart Rate [ Monitoring electrodes] Respiratory Rate Blood Pressure Blood Pressure 88/48 L 79/55 L 77/45 L [Right Brachial artery] O2 Saturation 07/10/20 07/10/20 07/10/20 14:00 14:16 14:30 Temperature Heart Rate 124 H Heart Rate [ 124 H 103 H Brachial] Heart Rate [ Monitoring electrodes] Respiratory Rate Blood Pressure Blood Pressure 92/48 L 95/72 [Right Brachial artery] O2 Saturation 07/10/20 07/10/20 07/10/20 16:28 16:30 17:00 Temperature 36.4 C L Heart Rate Heart Rate [ 83 Brachial] Heart Rate [ Monitoring electrodes] Respiratory 20 Rate Blood Pressure Blood Pressure 114/86 H 122/82 H 133/91 H [Right Brachial artery] O2 Saturation 96 07/10/20 07/10/20 07/10/20 17:30 18:00 18:30 Temperature Heart Rate Heart Rate [ Brachial] Heart Rate [ Monitoring electrodes] Respiratory Rate Blood Pressure Blood Pressure 108/61 108/77 125/69 [Right Brachial artery] O2 Saturation 07/10/20 07/10/20 07/10/20 19:00 19:30 20:00 Temperature Heart Rate Heart Rate [ Brachial] Heart Rate [ Monitoring electrodes] Respiratory Rate Blood Pressure Blood Pressure 107/71 127/87 H 112/82 H [Right Brachial artery] O2 Saturation 07/10/20 07/10/20 07/10/20 20:07 20:30 21:16 Temperature 36.5 C Heart Rate 121 H Heart Rate [ 97 Brachial] Heart Rate [ Monitoring electrodes] Respiratory 20 Rate Blood Pressure 146/94 H Blood Pressure 137/89 H [Right Brachial artery] O2 Saturation 96 07/11/20 07/11/20 07/11/20 00:00 01:35 04:03 Temperature 36.3 C L 36.4 C L Heart Rate 115 H Heart Rate [ 96 100 Brachial] Heart Rate [ Monitoring electrodes] Respiratory 18 18 Rate Blood Pressure Blood Pressure 143/87 H 142/85 H [Right Brachial artery] O2 Saturation 96 93 07/11/20 07/11/20 07/11/20 08:00 09:01 12:00 Temperature 36.6 C 36.6 C Heart Rate Heart Rate [ Brachial] Heart Rate [ 92 95 Monitoring electrodes] Respiratory 16 18 Rate Blood Pressure 144/84 H Blood Pressure 144/84 H 83/53 L [Right Brachial artery] O2 Saturation 95 92 Oxygen O2 Source [With Activity] Room air O2 Source [Without Activity] Room air O2 Source Room air Oxygen Flow Rate 2 I&O (Last 24 Hrs): Intake and Output Totals x24h 07/09/20 07/10/20 07/11/20 23:59 23:59 23:59 Intake Total 1110 670 160 Output Total 500 1225 200 Balance 255 -779 -71 General: Alert HEENT: Mucous membr. moist/pink Neck: Supple Neuro: Alert, Disoriented Cardiovascular: Other (Irreg irreg) Respiratory: No respiratory distress Abdomen: Soft Extremities: No edema - Results Results: Laboratory Results WBC 5.2 x10^3/uL (4.8-10.8) 07/11/20 05:09 RBC 3.15 10^6/uL (4.70-6.10) L 07/11/20 05:09 Hgb 10.7 g/dL (14.0-18.0) L 07/11/20 05:09 Hct 31.6 % (42.0-52.0) L 07/11/20 05:09 MCV 100.3 fL (80.0-94.0) H 07/11/20 05:09 MCH 34.0 pg (27.0-31.0) H 07/11/20 05:09 MCHC 33.9 g/dL (32.0-36.0) 07/11/20 05:09 RDW 16.7 % (12.0-15.0) H 07/11/20 05:09 Plt Count 188 10^3/uL (130-450) 07/11/20 05:09 MPV 9.8 fL (7.4-11.4) 07/11/20 05:09 Neut # (Auto) 4.5 10^3/uL (1.5-6.6) 07/11/20 05:09 Lymph # (Auto) 0.4 10^3/uL (1.5-3.5) L 07/11/20 05:09 Hartley # (Auto) 0.3 10^3/uL (0.0-1.0) 07/11/20 05:09 Eos # (Auto) 0.0 10^3/uL (0.0-0.7) 07/11/20 05:09 Baso # (Auto) 0.0 10^3/uL (0.0-0.1) 07/11/20 05:09 Absolute Nucleated RBC 0.00 x10^3/uL 07/11/20 05:09 Total Counted 100 07/08/20 07:13 Band Neuts % (Manual) 3 % (0-10) 07/08/20 07:13 Abnorm Lymph % (Manual) 0 % 07/08/20 07:13 Nucleated RBC % 0.0 /100WBC 07/11/20 05:09 Neutrophils # (Manual) 6.4 10^3/uL (1.5-6.6) 07/08/20 07:13 Lymphocytes # (Manual) 0.6 10^3/uL (1.5-3.5) L 07/08/20 07:13 Monocytes # (Manual) 0.4 10^3/uL (0.0-1.0) 07/08/20 07:13 Eosinophils # (Manual) 0.0 10^3/uL (0-0.7) 07/08/20 07:13 Basophils # (Manual) 0.0 10^3/uL (0-0.1) 07/08/20 07:13 Differential Comment MANUAL DIFFERENTIAL 07/08/20 07:13 WBC Morphology NORMAL APPEARANCE (NORMAL) 07/08/20 07:13 Platelet Estimate NORMAL (130-450,000) (NORMAL) 07/08/20 07:13 Platelet Morphology NORMAL APPEARANCE (NORMAL) 07/08/20 07:13 RBC Morph Micro Appear 1+ OVALOCYTES (NORMAL) 1+ POLYCHROMASIA (NORMAL) 07/08/20 07:13 RBC Morph Micro Appear 1+ OVALOCYTES (NORMAL) 1+ POLYCHROMASIA (NORMAL) 07/08/20 07:13 Sodium 136 mmol/L (135-145) 07/11/20 05:09 Potassium 4.0 mmol/L (3.5-5.0) 07/11/20 05:09 Chloride 105 mmol/L (101-111) 07/11/20 05:09 Carbon Dioxide 22 mmol/L (21-32) 07/11/20 05:09 Anion Gap 9.0 (6-13) 07/11/20 05:09 BUN 42 mg/dL (6-20) H 07/11/20 05:09 Creatinine 2.4 mg/dL (0.6-1.2) H 07/11/20 05:09 Estimated GFR (MDRD) 26 (>89) L 07/11/20 05:09 Glucose 101 mg/dL (70-100) H 07/11/20 05:09 Lactic Acid 2.2 mmol/L (0.5-2.2) 07/07/20 00:05 Calcium 8.7 mg/dL (8.5-10.3) 07/11/20 05:09 Phosphorus 3.7 mg/dL (2.5-4.6) 07/11/20 05:09 Magnesium 2.0 mg/dL (1.7-2.8) 07/11/20 05:09 Total Bilirubin 0.7 mg/dL (0.2-1.0) 07/06/20 22:43 AST 81 IU/L (10-42) H 07/06/20 22:43 ALT 25 IU/L (10-60) 07/06/20 22:43 Alkaline Phosphatase 76 IU/L (42-121) 07/06/20 22:43 Total Creatine Kinase 793 IU/L (22-269) H 07/09/20 04:36 CK-MB (CK-2) 52.6 ng/mL (0.6-6.3) H 07/06/20 22:43 Troponin I High Sens 146.1 ng/L (2.3-19.7) H* 07/07/20 05:30 B-Natriuretic Peptide 1021 pg/mL (5-100) H 07/07/20 00:05 Total Protein 6.4 g/dL (6.7-8.2) L 07/06/20 22:43 Albumin 2.7 g/dL (3.2-5.5) L 07/06/20 22:43 Globulin 3.7 g/dL (2.1-4.2) 07/06/20 22:43 Albumin/Globulin Ratio 0.7 (1.0-2.2) L 07/06/20 22:43 Lipase 27 U/L (22-51) 07/06/20 22:43 Vitamin B12 406 pg/mL (180-914) 07/11/20 05:09 Folate 4.83 ng/mL (5.90 - >24.8) L 07/11/20 05:09 TSH 2.53 uIU/mL (0.34-5.60) 07/06/20 22:43 Urine Color YELLOW 07/07/20 15:41 Urine Clarity CLEAR (CLEAR) 07/07/20 15:41 Urine pH 6.0 PH (5.0-7.5) 07/07/20 15:41 Ur Specific [place] 1.020 (1.002-1.030) 07/07/20 15:41 Urine Protein 100 mg/dL (NEGATIVE) H 07/07/20 15:41 Urine Glucose (UA) NEGATIVE mg/dL (NEGATIVE) 07/07/20 15:41 Urine Ketones NEGATIVE mg/dL (NEGATIVE) 07/07/20 15:41 Urine Occult Blood LARGE (NEGATIVE) H 07/07/20 15:41 Urine Nitrite NEGATIVE (NEGATIVE) 07/07/20 15:41 Urine Bilirubin NEGATIVE (NEGATIVE) 07/07/20 15:41 Urine Urobilinogen 0.2 (NORMAL) E.U./dL (NORMAL) 07/07/20 15:41 Ur Leukocyte Esterase TRACE (NEGATIVE) H 07/07/20 15:41 Urine RBC 11-25 /HPF (0-5) H 07/07/20 15:41 Urine WBC >25 /HPF (0-3) H 07/07/20 15:41 Ur Squamous Epith Cells FEW Squamous (<= Few) 07/07/20 15:41 Urine Bacteria Few /HPF (None Seen) 07/07/20 15:41 Ur Microscopic Review INDICATED 07/07/20 15:41 Urine Culture Comments INDICATED 07/07/20 15:41 Last Dose Date UNK 07/11/20 05:09 Last Dose Time UNK 07/11/20 05:09 Digoxin 1.7 ng/mL 07/11/20 05:09 Coronavirus (PCR) NEGATIVE 07/07/20 01:45 - Procedures Procedures: Procedures CONTROL BLEEDING IN GASTROINTESTINAL TRACT, ENDO (01/28/19)
--- NOTE | 2020-07-11 19:15 | CT Report ---
PROCEDURE: HEAD WO INDICATIONS: New confusion TECHNIQUE: Noncontrast 4.5 mm thick angled axial sections acquired from the foramen magnum to the vertex. For r adiation dose reduction, the following was used: automated exposure control, adjustment of mA and/or kV according to patient size. COMPARISON: None. FINDINGS: Image quality: Excellent. CSF spaces: Basal cisterns are patent. No extra-axial fluid collections. Ventricles are symmetric in size and shape. Brain: No midline shift. No acute intracranial hemorrhage or midline shift. A chronic wedge-shaped a marquita of encephalomalacia in the left cerebral hemisphere is compatible with an old infarct. The ventri cles and sulci are prominent, compatible with mild diffuse cerebral and cerebellar atrophy. Hypodensi ties in the subcortical and periventricular white matter compatible with chronic microvascular ischem ic changes. Skull and face: Calvarium and visualized facial bones are intact, without suspicious lesions. Sinuses: Visualized sinuses and mastoids are clear. IMPRESSION: 1. No acute intracranial hemorrhage or mass effect. 2. 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 3. Chronic senescent changes including mild diffuse cerebral atrophy and chronic microvascular ische brien changes. Reviewed by: Robe Wilks MD on 07/11/2020 7:14 PM PDT Approved by: Robe Wilks MD on 07/11/2020 7:14 PM PDT Station ID: [id number]
[2020-07-11] MEDS ORDERED: METOPROLOL TARTRATE 50 MG TABLET PO SCH (21:00)
[2020-07-11] MEDS: traZODone 50 MG TABLET PO SCH ×2 (21:02→21:10)
[2020-07-12] MEDS: SODIUM CHLORIDE FLUSH 0.9% 10 ML SYRINGE IVP SCH ×4 (00:59→23:48)
[2020-07-12] MEDS: METOPROLOL TARTRATE 25 MG TABLET PO SCH ×2 (02:24→20:26)
[2020-07-12 05:01] LABS: BUN - BLOOD UREA NITROGEN 37 mg/dL (6-20); CALCIUM 8.8 mg/dL (8.5-10.3); CARBON DIOXIDE - CO2 21 mmol/L (21-32); CHLORIDE 104 mmol/L (101-111); CREATININE 2.2 mg/dL (0.6-1.2); GLUCOSE 116 mg/dL (70-100); SODIUM 136 mmol/L (135-145)
[2020-07-12] MEDS: PANTOPRAZOLE 40 MG TABLET PO SCH (06:26)
[2020-07-12] MEDS: THIAMINE 100 MG TABLET PO SCH (08:28)
[2020-07-12] MEDS: TAMSULOSIN 0.4 MG CAPSULE PO SCH (08:28)
[2020-07-12] MEDS: APIXABAN 5 MG TABLET PO SCH ×2 (08:29→20:26)
[2020-07-12] MEDS: PRENATAL VITAMIN TABLET PO SCH (08:29)
--- NOTE | 2020-07-12 10:16 | PROVIDER PROGRESS NOTE ---
Assessment/Plan - Problem List (1) Atrial fibrillation with RVR Assessment/Plan: Heart rates are overall better, at 80-115. This morning the Dig level is 1.0, decreased from 1.7 yesterday after Dig loading. Because creatinine is still elevated and he probably has CKD, will give dig just 3 times a week: 125 mcg on Friday. Follow Dig levels for several days to assure not toxic. Continue with his lower dose metoprolol, the dose is spread out. Continue on telemetry. He is on Eliquis for his DVT which also gives him stroke prophylaxis (2) DVT of lower extremity, bilateral Assessment/Plan: He is tolerating the high dose of Eliquis and this will decrease in several days. There are no signs of bleeding, hemoglobin is stable (3) Hypotension Assessment/Plan: There has been improvement in his blood pressure after several days of gentle IV hydration. His meds for rate control needed to be spread out and also Dig added. We decreased the metoprolol 50 twice daily down to 37.5 twice daily. We decreased his tamsulosin from 0.8 mg daily to 0.4 mg daily. Continue with 1 additional day of IV hydration today. (4) Dementia Assessment/Plan: The patient requires major cueing and has difficulty following commands, documented by Physical Therapist. He could not remember if he had any stairs to climb in his house. His answers are tangential and sometimes entirely off topic. Occupational therapy to perform cognitive eval. 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 Continue with empiric Thiamine dosing because of the alcohol intake history. Social work has tried to reach relatives, to assist with planning (and placement), and apparently he has no living relatives whatsoever. There are 2 friends who have been contacted: 1 says she does not know enough about him, the other is going to clean his house and help with paying his overdue rent. There has been an APS report placed, and SW has reached our in-house beehive kiln supervisor, kiya thakur guardianship plan, and he will need a new housing location, since it is not a safe discharge to send him home alone. He personally is unable to make decisions about placement. (5) Acute kidney injury superimposed on chronic kidney disease Assessment/Plan: This patient's baseline creatinine was 2.2 and 2019. He is running 2.2-2.5 here. Continue to avoid nephrotoxins, and no diuretics because of this CKD. Continue IV saline for 1 more day. Monitor BMP daily. (6) Rhabdomyolysis Qualifiers: Rhabdomyolysis type: non-traumatic Qualified Code(s): M62.82 - Rhabdomyolysis Assessment/Plan: His CK has improved from 3000 to 138 today. Continuing with very gentle IV hydration for this. (7) Systolic heart failure Assessment/Plan: He has borderline-low normal LVEF of 50%. IV hydration is gentle. (8) Anemia Qualifiers: Anemia type: iron deficiency Assessment/Plan: Hgb has dropped to 10, possibly due to hemodilution but he has a Hx of duodenal bleeding ulcer. B12 level is OK and folate level was low, he is on Folate daily with his MOV already ordered. Iron stores labs showed very low counts. Will order a stool guaic. Will start daily oral iron. (9) Alcohol consumption of more than two drinks per day Assessment/Plan: He told the admitting evaporator operator that he drinks 3 whiskeys per day. He may have Wernicke's encephalopathy, explaining the confusion/dimension as well. He was already started on empiric daily oral Thiamine. Will order a CIWA protocol with order to inform provider prn if he scores >4, to consider benzodiazepine, not automatic treatment since it may confuse him more. (10) Weakness Assessment/Plan: This was his complaint at presentation in the ER. It could be from his systolic heart failure, low BP or anemia. In addition his poor appetite, uremia, alcohol use are adding to weakness. Continue to work with PT daily but this has been difficult due to dementia, according to the Physical Therapist. (11) Hyponatremia Assessment/Plan: Resolved after several days of getting IV hydration. It was likely hypovolemic hyponatremia since he had decreased p.o. intake due to poor appetite. - Current Meds Current Meds: Current Medications Generic Name Dose Route Start Last Admin Trade Name Freq PRN Reason Stop Dose Admin Acetaminophen 650 mg 07/06/20 23:52 07/10/20 08:29 Tylenol PO 650 mg Q4HR PRN Administration Pain 1 to 4 Apixaban 10 mg 07/09/20 21:00 07/12/20 08:29 Eliquis PO 07/16/20 09:01 10 mg BID JOSE LUIS Administration Sodium Chloride 1,000 mls @ 50 mls/hr 07/11/20 10:00 07/11/20 21:12 Normal Saline 0.9% IV 07/13/20 01:59 50 mls/hr .Q20H JOSE LUIS Administration Metoprolol Tartrate 37.5 mg 07/11/20 21:00 07/12/20 02:24 Lopressor PO 37.5 mg BID JOSE LUIS Administration Pantoprazole Sodium 40 mg 07/08/20 18:00 07/12/20 06:26 Protonix PO 40 mg QDAC JOSE LUIS Administration Multivit/Folic Acid/Iron 1 tab 07/11/20 08:00 07/12/20 08:29 Trinatal Rx 1 PO 1 tab DAILYWM JOSE LUIS Administration Sodium Chloride 10 ml 07/06/20 23:52 07/10/20 12:41 Normal Saline Flush 0.9% IVP 10 ml PRN PRN Administration NEEDED PER PROVIDER ORDERS Sodium Chloride 10 ml 07/07/20 01:00 07/12/20 08:29 Normal Saline Flush 0.9% IVP Not Given 0100,0900,1700 JOSE LUIS Tamsulosin HCl 0.4 mg 07/12/20 09:00 07/12/20 08:28 Flomax PO 0.4 mg DAILY JOSE LUIS Administration Thiamine HCl 100 mg 07/11/20 09:00 07/12/20 08:28 Vitamin B-1 PO 100 mg DAILY JOSE LUIS Administration Trazodone HCl 25 mg 07/07/20 21:00 07/11/20 21:10 Desyrel PO Not Given QPM JOSE LUIS - Lab Result Fish Bone Diagrams: 07/11/20 05:09 07/12/20 04:40 - Additional Planning My Orders: My Active Orders 07/11/20 10:00 Sodium Chloride 0.9% [Normal Saline 0.9%] 1,000 ml IV 50 mls/hr 07/11/20 12:53 CIWA - AR Score Card [RC] Routine Routine Miscellaenous Nursing Order [RC] PRN Neuro Check [RC] QSHIFT QSHIFT 07/11/20 21:00 Metoprolol Tartrate [Lopressor] 37.5 mg PO BID 07/12/20 09:00 Tamsulosin [Flomax] 0.4 mg PO DAILY 07/13/20 05:00 BMP - BASIC METABOLIC PANEL [CHEM] DAILYLAB CBC - COMP BLD CT W/AUTO DIFF [HEME] DAILYLAB DIGOXIN [CHEM] DAILYLAB 07/13/20 08:00 Digoxin [Lanoxin] 125 mcg PO TUTHSA 07/14/20 05:00 BMP - BASIC METABOLIC PANEL [CHEM] DAILYLAB DIGOXIN [CHEM] DAILYLAB 07/15/20 05:00 DIGOXIN [CHEM] DAILYLAB 07/16/20 05:00 DIGOXIN [CHEM] DAILYLAB Subjective - Subjective Patient Reports: Resting Comfortably Objective Vital Signs: Vital Signs - 24 hr 07/11/20 07/11/20 07/11/20 12:00 13:00 18:00 Temperature 36.6 C 36.3 C L Heart Rate [ Brachial] Heart Rate [ 95 102 H Monitoring electrodes] Respiratory 18 16 Rate Blood Pressure Blood Pressure 83/53 L 88/59 L 110/71 [Right Brachial artery] O2 Saturation 92 93 07/11/20 07/12/20 07/12/20 20:52 00:00 02:20 Temperature 36.2 C L 36.6 C Heart Rate [ 97 97 Brachial] Heart Rate [ 112 H Monitoring electrodes] Respiratory 20 16 Rate Blood Pressure Blood Pressure 132/79 H 160/73 H 156/78 H [Right Brachial artery] O2 Saturation 94 94 07/12/20 07/12/20 07/12/20 02:24 03:00 05:05 Temperature 36.2 C L Heart Rate [ 80 Brachial] Heart Rate [ 89 Monitoring electrodes] Respiratory 18 Rate Blood Pressure 156/78 H Blood Pressure 124/87 H 154/99 H [Right Brachial artery] O2 Saturation 95 07/12/20 07:20 Temperature 36.3 C L Heart Rate [ 85 Brachial] Heart Rate [ Monitoring electrodes] Respiratory 20 Rate Blood Pressure Blood Pressure 102/72 [Right Brachial artery] O2 Saturation 93 Oxygen O2 Source [With Activity] Room air O2 Source [Without Activity] Room air O2 Source Room air Oxygen Flow Rate 2 I&O (Last 24 Hrs): Intake and Output Totals x24h 07/10/20 07/11/20 07/12/20 23:59 23:59 23:59 Intake Total 670 1960 460 Output Total 0221 931 5755 Balance -555 975 -1590 General: Alert HEENT: Mucous membr. moist/pink Neck: Supple Neuro: Disoriented, Non Focal Cardiovascular: No murmurs Respiratory: No respiratory distress Abdomen: Soft Extremities: Other (Trace pre-tibial edema) - Results Results: Laboratory Results WBC 5.2 x10^3/uL (4.8-10.8) 07/11/20 05:09 RBC 3.15 10^6/uL (4.70-6.10) L 07/11/20 05:09 Hgb 10.7 g/dL (14.0-18.0) L 07/11/20 05:09 Hct 31.6 % (42.0-52.0) L 07/11/20 05:09 MCV 100.3 fL (80.0-94.0) H 07/11/20 05:09 MCH 34.0 pg (27.0-31.0) H 07/11/20 05:09 MCHC 33.9 g/dL (32.0-36.0) 07/11/20 05:09 RDW 16.7 % (12.0-15.0) H 07/11/20 05:09 Plt Count 188 10^3/uL (130-450) 07/11/20 05:09 MPV 9.8 fL (7.4-11.4) 07/11/20 05:09 Neut # (Auto) 4.5 10^3/uL (1.5-6.6) 07/11/20 05:09 Lymph # (Auto) 0.4 10^3/uL (1.5-3.5) L 07/11/20 05:09 [place] # (Auto) 0.3 10^3/uL (0.0-1.0) 07/11/20 05:09 Eos # (Auto) 0.0 10^3/uL (0.0-0.7) 07/11/20 05:09 Baso # (Auto) 0.0 10^3/uL (0.0-0.1) 07/11/20 05:09 Absolute Nucleated RBC 0.00 x10^3/uL 07/11/20 05:09 Total Counted 100 07/08/20 07:13 Band Neuts % (Manual) 3 % (0-10) 07/08/20 07:13 Abnorm Lymph % (Manual) 0 % 07/08/20 07:13 Nucleated RBC % 0.0 /100WBC 07/11/20 05:09 Neutrophils # (Manual) 6.4 10^3/uL (1.5-6.6) 07/08/20 07:13 Lymphocytes # (Manual) 0.6 10^3/uL (1.5-3.5) L 07/08/20 07:13 Monocytes # (Manual) 0.4 10^3/uL (0.0-1.0) 07/08/20 07:13 Eosinophils # (Manual) 0.0 10^3/uL (0-0.7) 07/08/20 07:13 Basophils # (Manual) 0.0 10^3/uL (0-0.1) 07/08/20 07:13 Differential Comment MANUAL DIFFERENTIAL 07/08/20 07:13 WBC Morphology NORMAL APPEARANCE (NORMAL) 07/08/20 07:13 Platelet Estimate NORMAL (130-450,000) (NORMAL) 07/08/20 07:13 Platelet Morphology NORMAL APPEARANCE (NORMAL) 07/08/20 07:13 RBC Morph Micro Appear 1+ OVALOCYTES (NORMAL) 1+ POLYCHROMASIA (NORMAL) 07/08/20 07:13 RBC Morph Micro Appear 1+ OVALOCYTES (NORMAL) 1+ POLYCHROMASIA (NORMAL) 07/08/20 07:13 Sodium 136 mmol/L (135-145) 07/12/20 04:40 Potassium 3.5 mmol/L (3.5-5.0) 07/12/20 04:40 Chloride 104 mmol/L (101-111) 07/12/20 04:40 Carbon Dioxide 21 mmol/L (21-32) 07/12/20 04:40 Anion Gap 11.0 (6-13) 07/12/20 04:40 BUN 37 mg/dL (6-20) H 07/12/20 04:40 Creatinine 2.2 mg/dL (0.6-1.2) H 07/12/20 04:40 Estimated GFR (MDRD) 29 (>89) L 07/12/20 04:40 Glucose 116 mg/dL (70-100) H 07/12/20 04:40 Lactic Acid 2.2 mmol/L (0.5-2.2) 07/07/20 00:05 Calcium 8.8 mg/dL (8.5-10.3) 07/12/20 04:40 Phosphorus 3.7 mg/dL (2.5-4.6) 07/11/20 05:09 Magnesium 2.0 mg/dL (1.7-2.8) 07/11/20 05:09 Total Bilirubin 0.7 mg/dL (0.2-1.0) 07/06/20 22:43 AST 81 IU/L (10-42) H 07/06/20 22:43 ALT 25 IU/L (10-60) 07/06/20 22:43 Alkaline Phosphatase 76 IU/L (42-121) 07/06/20 22:43 Total Creatine Kinase 793 IU/L (22-269) H 07/09/20 04:36 CK-MB (CK-2) 52.6 ng/mL (0.6-6.3) H 07/06/20 22:43 Troponin I High Sens 146.1 ng/L (2.3-19.7) H* 07/07/20 05:30 B-Natriuretic Peptide 1021 pg/mL (5-100) H 07/07/20 00:05 Total Protein 6.4 g/dL (6.7-8.2) L 07/06/20 22:43 Albumin 2.7 g/dL (3.2-5.5) L 07/06/20 22:43 Globulin 3.7 g/dL (2.1-4.2) 07/06/20 22:43 Albumin/Globulin Ratio 0.7 (1.0-2.2) L 07/06/20 22:43 Lipase 27 U/L (22-51) 07/06/20 22:43 Vitamin B12 406 pg/mL (180-914) 07/11/20 05:09 Folate 4.83 ng/mL (5.90 - >24.8) L 07/11/20 05:09 TSH 2.53 uIU/mL (0.34-5.60) 07/06/20 22:43 Urine Color YELLOW 07/07/20 15:41 Urine Clarity CLEAR (CLEAR) 07/07/20 15:41 Urine pH 6.0 PH (5.0-7.5) 07/07/20 15:41 Ur Specific [place] 1.020 (1.002-1.030) 07/07/20 15:41 Urine Protein 100 mg/dL (NEGATIVE) H 07/07/20 15:41 Urine Glucose (UA) NEGATIVE mg/dL (NEGATIVE) 07/07/20 15:41 Urine Ketones NEGATIVE mg/dL (NEGATIVE) 07/07/20 15:41 Urine Occult Blood LARGE (NEGATIVE) H 07/07/20 15:41 Urine Nitrite NEGATIVE (NEGATIVE) 07/07/20 15:41 Urine Bilirubin NEGATIVE (NEGATIVE) 07/07/20 15:41 Urine Urobilinogen 0.2 (NORMAL) E.U./dL (NORMAL) 07/07/20 15:41 Ur Leukocyte Esterase TRACE (NEGATIVE) H 07/07/20 15:41 Urine RBC 11-25 /HPF (0-5) H 07/07/20 15:41 Urine WBC >25 /HPF (0-3) H 07/07/20 15:41 Ur Squamous Epith Cells FEW Squamous (<= Few) 07/07/20 15:41 Urine Bacteria Few /HPF (None Seen) 07/07/20 15:41 Ur Microscopic Review INDICATED 07/07/20 15:41 Urine Culture Comments INDICATED 07/07/20 15:41 Last Dose Date UNKNOWN 07/12/20 04:40 Last Dose Time UNKNOWN 07/12/20 04:40 Digoxin 1.0 ng/mL 07/12/20 04:40 Coronavirus (PCR) NEGATIVE 07/07/20 01:45 - Procedures Procedures: Procedures CONTROL BLEEDING IN GASTROINTESTINAL TRACT, ENDO (01/28/19)
[2020-07-12 11:26] LABS: % IRON SATURATION 8 % (20-50); IRON 15 ug/dL (45-182); TOTAL IRON BINDING CAPACITY 179 ug/dL (250-450); TRANSFERRIN 128 mg/dL (180-329)
[2020-07-12] MEDS: traZODone 50 MG TABLET PO SCH (20:26)
[2020-07-13 04:21] LABS: BASOPHILS % (AUTO) 0.2 %; EOSINOPHILS # (AUTO) 0.1 10^3/uL (0.0-0.7); EOSINOPHILS % (AUTO) 0.9 %; HGB - HEMOGLOBIN 10.1 g/dL (14.0-18.0); LYMPHOCYTES # (AUTO) 0.6 10^3/uL (1.5-3.5); LYMPHOCYTES % (AUTO) 10.4 %; MEAN CORPUSCULAR HEMOGLOBIN 33.7 pg (27.0-31.0); MEAN CORPUSCULAR HGB CONC 33.3 g/dL (32.0-36.0); MEAN PLATELET VOLUME 9.6 fL (7.4-11.4); MONOCYTES # (AUTO) 0.4 10^3/uL (0.0-1.0); MONOCYTES % (AUTO) 6.1 %; NEUTROPHILS # (AUTO) 4.6 10^3/uL (1.5-6.6); NEUTROPHILS % (AUTO) 79.6 %; PLT - PLATELET COUNT 180 10^3/uL (130-450); RED CELL DISTRIBUTION WIDTH 17.1 % (12.0-15.0); WHITE BLOOD COUNT 5.8 x10^3/uL (4.8-10.8)
[2020-07-13 04:33] LABS: BUN - BLOOD UREA NITROGEN 38 mg/dL (6-20); CALCIUM 8.4 mg/dL (8.5-10.3); CARBON DIOXIDE - CO2 23 mmol/L (21-32); CHLORIDE 104 mmol/L (101-111); DIGOXIN 0.9 ng/mL; GLUCOSE 104 mg/dL (70-100); SODIUM 137 mmol/L (135-145)
--- NOTE | 2020-07-13 07:52 | PROVIDER PROGRESS NOTE ---
Assessment/Plan - Problem List (1) DVT of lower extremity, bilateral Assessment/Plan: This was found at admission. He was on Lovenox, transitioned to Xarelto, high dose for 14 days, which is several more days, then the low dose is already scheduled to begin after that. The plan is for 3 months of treatment since this is a provoked DVT (probably from immobility). Immobility is likely since he had a fall several days pre- admission, which I learned of yesterday, and had rhabdomyolysis at presentation. (2) Dementia Assessment/Plan: The patient requires major cueing and has difficulty following commands, documented by Physical Therapist. He could not remember if he had any stairs to climb in his house. His answers are tangential and sometimes entirely off top ic. Occupational Therapy performed cognitive eval. yesterday and he scored 12-14/30, which is considered severe cognitive impairment. 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 He is on empiric Thiamine dosing because of the alcohol intake history. Social Work has tried to reach relatives, to assist with planning (and placement), and apparently he has no living relatives whatsoever. There are 2 friends who have been contacted: 1 says she does not know enough about him, the other is going to clean his house and help with paying his overdue rent and will visit today. Yesterday I spoke to 1 of the friends, Mi who has known him for 30 years, and she told me that he is been very slowly declining over many years but especially has declined rapidly over the last 2 months and she suspected he had a stroke then. Mi had tried to encourage him to set up a DPOA for many years, which he never did. The patient did not recognize her voice when they were speaking on the phone several days ago. There has been an APS report placed, and he will need to be discharged to a new living arrangement, since it is no longer a safe discharge plan to send him home alone. He personally is unable to make decisions about placement. SW has reached our in-house sports lawyer, regarding guardianship plan. He is clinically stabilized today and ready for discharge, but unfortunately there is no discharge plan. (3) Atrial fibrillation with RVR Assessment/Plan: He is in Afib, but the fast heart rate is now controlled in the 80s to 90s on spread out Metoprolol dosing and on Digoxin every other day. The Dig trough level has been good at 1.0 yesterday and 0.9 today. Follow Dig level intermittently now. He is on Xarelto for his DVT, therefore is getting stroke prophylaxis (4) Acute kidney injury superimposed on chronic kidney disease Assessment/Plan: The creatinine is 2.0 today, this is his best and possibly his baseline. He required 5 to 6 days of gentle IV hydration. The IV fluids stopped today. Will monitor BMP intermittently now. (5) Systolic heart failure Assessment/Plan: He has borderline-low normal LVEF of 50%. IV hydration was gentle, is off as of today. (6) Anemia Qualifiers: Anemia type: iron deficiency Assessment/Plan: He is getting folate and his MOV. Yesterday oral iron was started. Hemoglobin has been stable at approximately 10. (7) Weakness Assessment/Plan: This was his complaint at presentation in the ER. It could be from his systolic heart failure, low BP or anemia. In addition his poor appetite, uremia, alcohol use are adding to weakness. Work with PT daily has been difficult due to his dementia, according to the Physical Therapist. He is walking with PT, and ambulating in hallway yesterday even with his RN, using a walker. (8) BPH (benign prostatic hyperplasia) Assessment/Plan: He is on Tamsolusin, as pre-hospitalization. The dose Was lowered 2 days ago due to hypotension, AND there are no new complaints of urinary retention or dribbling. (9) Alcohol consumption of more than two drinks per day Assessment/Plan: He told the admitting hospitalist that he drinks 3 whiskeys per day. Yesterday, in my discussion with Mi by phone, she also told me that "he was a drinker". He may have a component of Wernicke's encephalopathy adding to his dementia. He is on daily oral Thiamine. (10) Rhabdomyolysis Qualifiers: Rhabdomyolysis type: traumatic Assessment/Plan: Resolved. Yesterday I spoke to 1 of his friends (who lives in [place] (she has known for 30 years. She did say that there was a recent fall. The CK that was greater than 3000 at admission, has now corrected to 138 yesterday. (11) Hyponatremia Assessment/Plan: Resolved several days ago, after iv saline hydration. (12) Hypotension Assessment/Plan: Resolved after 6 days of iv hydration and spreading out meds that drop his BP. IV fluids stop today. - Current Meds Current Meds: Current Medications Generic Name Dose Route Start Last Admin Trade Name Freq PRN Reason Stop Dose Admin Acetaminophen 650 mg 07/06/20 23:52 07/10/20 08:29 Tylenol PO 650 mg Q4HR PRN Administration Pain 1 to 4 Apixaban 10 mg 07/09/20 21:00 07/12/20 20:26 Eliquis PO 07/16/20 09:01 10 mg BID JOSE LUIS Administration Metoprolol Tartrate 37.5 mg 07/11/20 21:00 07/12/20 20:26 Lopressor PO 37.5 mg BID JOSE LUIS Administration Multivit/Folic Acid/Iron 1 tab 07/11/20 08:00 07/12/20 08:29 Trinatal Rx 1 PO 1 tab DAILYWM JOSE LUIS Administration Sodium Chloride 10 ml 07/06/20 23:52 07/10/20 12:41 Normal Saline Flush 0.9% IVP 10 ml PRN PRN Administration NEEDED PER PROVIDER ORDERS Sodium Chloride 10 ml 07/07/20 01:00 07/12/20 23:48 Normal Saline Flush 0.9% IVP 10 ml 0100,[id number],1700 JOSE LUIS Administration Tamsulosin HCl 0.4 mg 07/12/20 09:00 07/12/20 08:28 Flomax PO 0.4 mg DAILY JOSE LUIS Administration Thiamine HCl 100 mg 07/11/20 09:00 07/12/20 08:28 Vitamin B-1 PO 100 mg DAILY JOSE LUIS Administration Trazodone HCl 25 mg 07/07/20 21:00 07/12/20 20:26 Desyrel PO 25 mg QPM JOSE LUIS Administration - Lab Result Fish Bone Diagrams: 07/13/20 04:05 07/13/20 04:05 - Additional Planning My Orders: My Active Orders 07/12/20 09:00 Tamsulosin [Flomax] 0.4 mg PO DAILY 07/13/20 08:00 Digoxin [Lanoxin] 125 mcg PO TUTHSA Ferrous Gluconate [Fergon] 324 mg PO DAILYWM 07/13/20 09:00 Famotidine [Pepcid] 20 mg PO DAILY 07/14/20 05:00 BMP - BASIC METABOLIC PANEL [CHEM] DAILYLAB DIGOXIN [CHEM] DAILYLAB 07/15/20 05:00 DIGOXIN [CHEM] DAILYLAB 07/16/20 05:00 DIGOXIN [CHEM] DAILYLAB Subjective - Subjective Patient Reports: Resting Comfortably Objective Vital Signs: Vital Signs - 24 hr 07/12/20 07/12/20 07/12/20 11:30 12:09 15:34 Temperature 36.2 C L 36.5 C Heart Rate [ 125 H Activity] Heart Rate [ 103 H 61 Brachial] Heart Rate [ 116 H Sitting] Heart Rate [ 116 H Supine] Respiratory 20 16 Rate Blood Pressure Blood Pressure 128/78 [Activity] Blood Pressure [Left Brachial artery] Blood Pressure 120/91 H 123/70 [Right Brachial artery] Blood Pressure 111/78 [Sitting] Blood Pressure 119/86 H [Supine] O2 Saturation 93 93 07/12/20 07/12/20 07/12/20 20:05 20:26 23:58 Temperature 36.2 C L 36.3 C L Heart Rate [ Activity] Heart Rate [ 93 96 Brachial] Heart Rate [ Sitting] Heart Rate [ Supine] Respiratory 20 16 Rate Blood Pressure 138/70 H Blood Pressure [Activity] Blood Pressure [Left Brachial artery] Blood Pressure 138/70 H 123/84 H [Right Brachial artery] Blood Pressure [Sitting] Blood Pressure [Supine] O2 Saturation 93 94 07/13/20 03:56 Temperature 36.3 C L Heart Rate [ Activity] Heart Rate [ 92 Brachial] Heart Rate [ Sitting] Heart Rate [ Supine] Respiratory 18 Rate Blood Pressure Blood Pressure [Activity] Blood Pressure 133/72 H [Left Brachial artery] Blood Pressure [Right Brachial artery] Blood Pressure [Sitting] Blood Pressure [Supine] O2 Saturation 92 Oxygen O2 Source [With Activity] Room air O2 Source [Without Activity] Room air O2 Source Room air Oxygen Flow Rate 2 I&O (Last 24 Hrs): Intake and Output Totals x24h 07/11/20 07/12/20 07/13/20 23:59 23:59 23:59 Intake Total 1960 2880.000 500 Output Total 985 2500 650 Balance 975 380.000 -150 General: Alert HEENT: Mucous membr. moist/pink Neck: Supple Neuro: Disoriented, Non Focal Cardiovascular: Other (Irreg irreg) Respiratory: No respiratory distress Abdomen: Soft Extremities: Other (1+ edema) - Results Results: Laboratory Results WBC 5.8 x10^3/uL (4.8-10.8) 07/13/20 04:05 RBC 3.00 10^6/uL (4.70-6.10) L 07/13/20 04:05 Hgb 10.1 g/dL (14.0-18.0) L 07/13/20 04:05 Hct 30.3 % (42.0-52.0) L 07/13/20 04:05 MCV 101.0 fL (80.0-94.0) H 07/13/20 04:05 MCH 33.7 pg (27.0-31.0) H 07/13/20 04:05 MCHC 33.3 g/dL (32.0-36.0) 07/13/20 04:05 RDW 17.1 % (12.0-15.0) H 07/13/20 04:05 Plt Count 180 10^3/uL (130-450) 07/13/20 04:05 MPV 9.6 fL (7.4-11.4) 07/13/20 04:05 Neut # (Auto) 4.6 10^3/uL (1.5-6.6) 07/13/20 04:05 Lymph # (Auto) 0.6 10^3/uL (1.5-3.5) L 07/13/20 04:05 [place] # (Auto) 0.4 10^3/uL (0.0-1.0) 07/13/20 04:05 Eos # (Auto) 0.1 10^3/uL (0.0-0.7) 07/13/20 04:05 Baso # (Auto) 0.0 10^3/uL (0.0-0.1) 07/13/20 04:05 Absolute Nucleated RBC 0.00 x10^3/uL 07/13/20 04:05 Total Counted 100 07/08/20 07:13 Band Neuts % (Manual) 3 % (0-10) 07/08/20 07:13 Abnorm Lymph % (Manual) 0 % 07/08/20 07:13 Nucleated RBC % 0.0 /100WBC 07/13/20 04:05 Neutrophils # (Manual) 6.4 10^3/uL (1.5-6.6) 07/08/20 07:13 Lymphocytes # (Manual) 0.6 10^3/uL (1.5-3.5) L 07/08/20 07:13 Monocytes # (Manual) 0.4 10^3/uL (0.0-1.0) 07/08/20 07:13 Eosinophils # (Manual) 0.0 10^3/uL (0-0.7) 07/08/20 07:13 Basophils # (Manual) 0.0 10^3/uL (0-0.1) 07/08/20 07:13 Differential Comment MANUAL DIFFERENTIAL 07/08/20 07:13 WBC Morphology NORMAL APPEARANCE (NORMAL) 07/08/20 07:13 Platelet Estimate NORMAL (130-450,000) (NORMAL) 07/08/20 07:13 Platelet Morphology NORMAL APPEARANCE (NORMAL) 07/08/20 07:13 RBC Morph Micro Appear 1+ OVALOCYTES (NORMAL) 1+ POLYCHROMASIA (NORMAL) 07/08/20 07:13 RBC Morph Micro Appear 1+ OVALOCYTES (NORMAL) 1+ POLYCHROMASIA (NORMAL) 07/08/20 07:13 Sodium 137 mmol/L (135-145) 07/13/20 04:05 Potassium 3.6 mmol/L (3.5-5.0) 07/13/20 04:05 Chloride 104 mmol/L (101-111) 07/13/20 04:05 Carbon Dioxide 23 mmol/L (21-32) 07/13/20 04:05 Anion Gap 10.0 (6-13) 07/13/20 04:05 BUN 38 mg/dL (6-20) H 07/13/20 04:05 Creatinine 2.0 mg/dL (0.6-1.2) H 07/13/20 04:05 Estimated GFR (MDRD) 32 (>89) L 07/13/20 04:05 Glucose 104 mg/dL (70-100) H 07/13/20 04:05 Lactic Acid 2.2 mmol/L (0.5-2.2) 07/07/20 00:05 Calcium 8.4 mg/dL (8.5-10.3) L 07/13/20 04:05 Phosphorus 3.7 mg/dL (2.5-4.6) 07/11/20 05:09 Magnesium 2.0 mg/dL (1.7-2.8) 07/11/20 05:09 Iron 15 ug/dL (45-182) L 07/12/20 04:40 TIBC 179 ug/dL (250-450) L 07/12/20 04:40 % Saturation 8 % (20-50) L 07/12/20 04:40 Transferrin 128 mg/dL (180-329) L 07/12/20 04:40 Total Bilirubin 0.7 mg/dL (0.2-1.0) 07/06/20 22:43 AST 81 IU/L (10-42) H 07/06/20 22:43 ALT 25 IU/L (10-60) 07/06/20 22:43 Alkaline Phosphatase 76 IU/L (42-121) 07/06/20 22:43 Total Creatine Kinase 138 IU/L (22-269) 07/12/20 04:40 CK-MB (CK-2) 52.6 ng/mL (0.6-6.3) H 07/06/20 22:43 Troponin I High Sens 146.1 ng/L (2.3-19.7) H* 07/07/20 05:30 B-Natriuretic Peptide 1021 pg/mL (5-100) H 07/07/20 00:05 Total Protein 6.4 g/dL (6.7-8.2) L 07/06/20 22:43 Albumin 2.7 g/dL (3.2-5.5) L 07/06/20 22:43 Globulin 3.7 g/dL (2.1-4.2) 07/06/20 22:43 Albumin/Globulin Ratio 0.7 (1.0-2.2) L 07/06/20 22:43 Lipase 27 U/L (22-51) 07/06/20 22:43 Vitamin B12 406 pg/mL (180-914) 07/11/20 05:09 Folate 4.83 ng/mL (5.90 - >24.8) L 07/11/20 05:09 TSH 2.53 uIU/mL (0.34-5.60) 07/06/20 22:43 Urine Color YELLOW 07/07/20 15:41 Urine Clarity CLEAR (CLEAR) 07/07/20 15:41 Urine pH 6.0 PH (5.0-7.5) 07/07/20 15:41 Ur Specific [place] 1.020 (1.002-1.030) 07/07/20 15:41 Urine Protein 100 mg/dL (NEGATIVE) H 07/07/20 15:41 Urine Glucose (UA) NEGATIVE mg/dL (NEGATIVE) 07/07/20 15:41 Urine Ketones NEGATIVE mg/dL (NEGATIVE) 07/07/20 15:41 Urine Occult Blood LARGE (NEGATIVE) H 07/07/20 15:41 Urine Nitrite NEGATIVE (NEGATIVE) 07/07/20 15:41 Urine Bilirubin NEGATIVE (NEGATIVE) 07/07/20 15:41 Urine Urobilinogen 0.2 (NORMAL) E.U./dL (NORMAL) 07/07/20 15:41 Ur Leukocyte Esterase TRACE (NEGATIVE) H 07/07/20 15:41 Urine RBC 11-25 /HPF (0-5) H 07/07/20 15:41 Urine WBC >25 /HPF (0-3) H 07/07/20 15:41 Ur Squamous Epith Cells FEW Squamous (<= Few) 07/07/20 15:41 Urine Bacteria Few /HPF (None Seen) 07/07/20 15:41 Ur Microscopic Review INDICATED 07/07/20 15:41 Urine Culture Comments INDICATED 07/07/20 15:41 Last Dose Date UNKNOWN 07/13/20 04:05 Last Dose Time UNKNOWN 07/13/20 04:05 Digoxin 0.9 ng/mL 07/13/20 04:05 Coronavirus (PCR) NEGATIVE 07/07/20 01:45 - Procedures Procedures: Procedures CONTROL BLEEDING IN GASTROINTESTINAL TRACT, ENDO (01/28/19)
[2020-07-13] MEDS: DIGOXIN 125 MCG TABLET PO SCH (08:00)
[2020-07-13] MEDS: FERROUS GLUCONATE 324 MG TABLET PO SCH (08:00)
[2020-07-13] MEDS: PRENATAL VITAMIN TABLET PO SCH (08:00)
[2020-07-13] MEDS: METOPROLOL TARTRATE 25 MG TABLET PO SCH ×2 (08:19→20:43)
[2020-07-13] MEDS: APIXABAN 5 MG TABLET PO SCH ×2 (08:20→20:43)
[2020-07-13] MEDS: SODIUM CHLORIDE FLUSH 0.9% 10 ML SYRINGE IVP SCH ×3 (08:20→23:35)
[2020-07-13] MEDS: TAMSULOSIN 0.4 MG CAPSULE PO SCH (08:20)
[2020-07-13] MEDS: THIAMINE 100 MG TABLET PO SCH (08:20)
[2020-07-13] MEDS ORDERED: FAMOTIDINE 20 MG TABLET PO SCH (09:00)
[2020-07-13] MEDS: traZODone 50 MG TABLET PO SCH (20:44)
[2020-07-14 05:10] LABS: CALCIUM 8.8 mg/dL (8.5-10.3); CREATININE 1.8 mg/dL (0.6-1.2)
[2020-07-14] MEDS: PRENATAL VITAMIN TABLET PO SCH (08:59)
[2020-07-14] MEDS: METOPROLOL TARTRATE 25 MG TABLET PO SCH ×2 (09:00→21:05)
[2020-07-14] MEDS: THIAMINE 100 MG TABLET PO SCH (09:00)
[2020-07-14] MEDS: FERROUS GLUCONATE 324 MG TABLET PO SCH (09:00)
[2020-07-14] MEDS: TAMSULOSIN 0.4 MG CAPSULE PO SCH (09:00)
[2020-07-14] MEDS: SODIUM CHLORIDE FLUSH 0.9% 10 ML SYRINGE IVP SCH ×2 (09:01→21:05)
[2020-07-14] MEDS: APIXABAN 5 MG TABLET PO SCH ×2 (09:01→21:05)
[2020-07-14] MEDS ORDERED: BENZOCAINE/MENTHOL LOZENGE MM PRN (10:50)
--- NOTE | 2020-07-14 15:42 | PROVIDER PROGRESS NOTE ---
Assessment/Plan - Problem List (1) DVT of lower extremity, bilateral Assessment/Plan: He is tolerating Eliquis, the change to a lower dose comes in a few days. (2) Dementia Assessment/Plan: Yesterday afternoon he was able to tell the social work supervisor that he understands he cannot go to his home and live alone. With this understanding, he agreed to be placed in a SNF. The D POA topic can be managed after discharge. Social Work is now attempting to find placement in a SNF. Several facilities are reviewing his record today. (3) Atrial fibrillation with RVR Assessment/Plan: Heart rate is controlled on current management, telemetry was stopped 2 days ago (4) Acute kidney injury superimposed on chronic kidney disease Assessment/Plan: Creatinine has improved every day since he has been here. No further BMPs will be ordered (5) Systolic heart failure Assessment/Plan: EF of 50% was documented on echo this admission. He has not been fluid overloaded. When he was getting IV hydration for 5 days, the rate was very gentle. (6) Anemia Qualifiers: Anemia type: iron deficiency Assessment/Plan: He is getting folate in his normal [facility] and on iron replacement (7) Weakness Assessment/Plan: He is working with PT. In the last 2 days he has been more cooperative, compliant, it is been easier for him to participate and follows cues better. He would benefit from further PT and OT at a SNF (8) BPH (benign prostatic hyperplasia) Assessment/Plan: The tamsulosin dose was 0.8 mg, decreased by half when he had hypotension several days ago. There have been no complaints of dribbling or urinary retention therefore we will continue with this lower dose (9) Alcohol consumption of more than two drinks per day Assessment/Plan: There was no alcohol withdrawal earlier this admission. He is on daily oral thiamine. (10) Rhabdomyolysis Qualifiers: Rhabdomyolysis type: traumatic Assessment/Plan: When I spoke to the friend Mi by phone, she did confirm that he did have a fall recently Rhabdo has resolved with iv hydration. IV fluids were stopped 2 days ago, he has good oral intake per the dietitian. (11) Hyponatremia Assessment/Plan: Resolved (12) Hypotension Assessment/Plan: Resolved - Current Meds Current Meds: Current Medications Generic Name Dose Route Start Last Admin Trade Name Freq PRN Reason Stop Dose Admin Acetaminophen 650 mg 07/06/20 23:52 07/10/20 08:29 Tylenol PO 650 mg Q4HR PRN Administration Pain 1 to 4 Apixaban 10 mg 07/09/20 21:00 07/14/20 09:01 Eliquis PO 07/16/20 09:01 10 mg BID JOSE LUIS Administration Digoxin 125 mcg 07/13/20 08:00 07/13/20 08:00 Lanoxin PO 125 mcg TUTHSA JOSE LUIS Administration Ferrous Gluconate 324 mg 07/13/20 08:00 07/14/20 09:00 Fergon PO 324 mg DAILYWM JOSE LUIS Administration Metoprolol Tartrate 37.5 mg 07/11/20 21:00 07/14/20 09:00 Lopressor PO 37.5 mg BID JOSE LUIS Administration Multivit/Folic Acid/Iron 1 tab 07/11/20 08:00 07/14/20 08:59 Trinatal Rx 1 PO 1 tab DAILYWM JOSE LUIS Administration Sodium Chloride 10 ml 07/06/20 23:52 07/10/20 12:41 Normal Saline Flush 0.9% IVP 10 ml PRN PRN Administration NEEDED PER PROVIDER ORDERS Sodium Chloride 10 ml 07/07/20 01:00 07/14/20 09:01 Normal Saline Flush 0.9% IVP 10 ml 0100,0900,1700 JOSE LUIS Administration Tamsulosin HCl 0.4 mg 07/12/20 09:00 07/14/20 09:00 Flomax PO 0.4 mg DAILY JOSE LUIS Administration Thiamine HCl 100 mg 07/11/20 09:00 07/14/20 09:00 Vitamin B-1 PO 100 mg DAILY JOSE LUIS Administration Throat Lozenges 1 lozenge 07/14/20 10:50 07/14/20 12:00 Cepacol MM 1 lozenge Q2HR PRN Administration Throat pain Trazodone HCl 25 mg 07/07/20 21:00 07/13/20 20:44 Desyrel PO 25 mg QPM JOSE LUIS Administration - Lab Result Fish Bone Diagrams: 07/13/20 04:05 07/14/20 04:50 - Additional Planning My Orders: My Active Orders 07/14/20 Social Work Consult [CONS] Routine 07/14/20 10:50 Benzocaine/Menthol [Cepacol] 1 lozenge MM Q2HR PRN 07/15/20 05:00 DIGOXIN [CHEM] DAILYLAB 07/15/20 09:00 Famotidine [Pepcid] 20 mg PO Q48H 07/16/20 05:00 DIGOXIN [CHEM] DAILYLAB Subjective - Subjective Patient Reports: Resting Comfortably Nursing Reports: Other (Ambulating in hallway with physical therapist, tolerates longer walks each day.) Objective Vital Signs: Vital Signs - 24 hr 07/13/20 07/13/20 07/13/20 16:04 20:36 20:43 Temperature 36.7 C 36.7 C Heart Rate [ 90 100 Brachial] Heart Rate [ Monitoring electrodes] Respiratory 24 16 Rate Blood Pressure 120/79 Blood Pressure [Left Brachial artery] Blood Pressure 128/78 120/79 [Right Brachial artery] O2 Saturation 95 98 07/14/20 07/14/20 07/14/20 00:00 08:24 09:00 Temperature 36.4 C L 36.4 C L Heart Rate [ 95 Brachial] Heart Rate [ 94 Monitoring electrodes] Respiratory 24 Rate Blood Pressure 114/58 L Blood Pressure 124/86 H [Left Brachial artery] Blood Pressure 113/77 [Right Brachial artery] O2 Saturation 94 95 Oxygen O2 Source [With Activity] Room air O2 Source [Without Activity] Room air O2 Source Room air Oxygen Flow Rate 2 I&O (Last 24 Hrs): Intake and Output Totals x24h 07/12/20 07/13/20 07/14/20 23:59 23:59 23:59 Intake Total 2880.000 1250 1310 Output Total 2500 1550 1075 Balance 380.000 -300 235 General: Alert HEENT: Mucous membr. moist/pink Neck: Supple Neuro: Alert, Disoriented Cardiovascular: No murmurs Respiratory: No respiratory distress Abdomen: Soft Extremities: Other (Trace leg edema) - Results Results: Laboratory Results WBC 5.8 x10^3/uL (4.8-10.8) 07/13/20 04:05 RBC 3.00 10^6/uL (4.70-6.10) L 07/13/20 04:05 Hgb 10.1 g/dL (14.0-18.0) L 07/13/20 04:05 Hct 30.3 % (42.0-52.0) L 07/13/20 04:05 MCV 101.0 fL (80.0-94.0) H 07/13/20 04:05 MCH 33.7 pg (27.0-31.0) H 07/13/20 04:05 MCHC 33.3 g/dL (32.0-36.0) 07/13/20 04:05 RDW 17.1 % (12.0-15.0) H 07/13/20 04:05 Plt Count 180 10^3/uL (130-450) 07/13/20 04:05 MPV 9.6 fL (7.4-11.4) 07/13/20 04:05 Neut # (Auto) 4.6 10^3/uL (1.5-6.6) 07/13/20 04:05 Lymph # (Auto) 0.6 10^3/uL (1.5-3.5) L 07/13/20 04:05 [place] # (Auto) 0.4 10^3/uL (0.0-1.0) 07/13/20 04:05 Eos # (Auto) 0.1 10^3/uL (0.0-0.7) 07/13/20 04:05 Baso # (Auto) 0.0 10^3/uL (0.0-0.1) 07/13/20 04:05 Absolute Nucleated RBC 0.00 x10^3/uL 07/13/20 04:05 Total Counted 100 07/08/20 07:13 Band Neuts % (Manual) 3 % (0-10) 07/08/20 07:13 Abnorm Lymph % (Manual) 0 % 07/08/20 07:13 Nucleated RBC % 0.0 /100WBC 07/13/20 04:05 Neutrophils # (Manual) 6.4 10^3/uL (1.5-6.6) 07/08/20 07:13 Lymphocytes # (Manual) 0.6 10^3/uL (1.5-3.5) L 07/08/20 07:13 Monocytes # (Manual) 0.4 10^3/uL (0.0-1.0) 07/08/20 07:13 Eosinophils # (Manual) 0.0 10^3/uL (0-0.7) 07/08/20 07:13 Basophils # (Manual) 0.0 10^3/uL (0-0.1) 07/08/20 07:13 Differential Comment MANUAL DIFFERENTIAL 07/08/20 07:13 WBC Morphology NORMAL APPEARANCE (NORMAL) 07/08/20 07:13 Platelet Estimate NORMAL (130-450,000) (NORMAL) 07/08/20 07:13 Platelet Morphology NORMAL APPEARANCE (NORMAL) 07/08/20 07:13 RBC Morph Micro Appear 1+ OVALOCYTES (NORMAL) 1+ POLYCHROMASIA (NORMAL) 07/08/20 07:13 RBC Morph Micro Appear 1+ OVALOCYTES (NORMAL) 1+ POLYCHROMASIA (NORMAL) 07/08/20 07:13 Sodium 139 mmol/L (135-145) 07/14/20 04:50 Potassium 3.6 mmol/L (3.5-5.0) 07/14/20 04:50 Chloride 104 mmol/L (101-111) 07/14/20 04:50 Carbon Dioxide 25 mmol/L (21-32) 07/14/20 04:50 Anion Gap 10.0 (6-13) 07/14/20 04:50 BUN 42 mg/dL (6-20) H 07/14/20 04:50 Creatinine 1.8 mg/dL (0.6-1.2) H 07/14/20 04:50 Estimated GFR (MDRD) 36 (>89) L 07/14/20 04:50 Glucose 106 mg/dL (70-100) H 07/14/20 04:50 Lactic Acid 2.2 mmol/L (0.5-2.2) 07/07/20 00:05 Calcium 8.8 mg/dL (8.5-10.3) 07/14/20 04:50 Phosphorus 3.7 mg/dL (2.5-4.6) 07/11/20 05:09 Magnesium 2.0 mg/dL (1.7-2.8) 07/11/20 05:09 Iron 15 ug/dL (45-182) L 07/12/20 04:40 TIBC 179 ug/dL (250-450) L 07/12/20 04:40 % Saturation 8 % (20-50) L 07/12/20 04:40 Transferrin 128 mg/dL (180-329) L 07/12/20 04:40 Total Bilirubin 0.7 mg/dL (0.2-1.0) 07/06/20 22:43 AST 81 IU/L (10-42) H 07/06/20 22:43 ALT 25 IU/L (10-60) 07/06/20 22:43 Alkaline Phosphatase 76 IU/L (42-121) 07/06/20 22:43 Total Creatine Kinase 138 IU/L (22-269) 07/12/20 04:40 CK-MB (CK-2) 52.6 ng/mL (0.6-6.3) H 07/06/20 22:43 Troponin I High Sens 146.1 ng/L (2.3-19.7) H* 07/07/20 05:30 B-Natriuretic Peptide 1021 pg/mL (5-100) H 07/07/20 00:05 Total Protein 6.4 g/dL (6.7-8.2) L 07/06/20 22:43 Albumin 2.7 g/dL (3.2-5.5) L 07/06/20 22:43 Globulin 3.7 g/dL (2.1-4.2) 07/06/20 22:43 Albumin/Globulin Ratio 0.7 (1.0-2.2) L 07/06/20 22:43 Lipase 27 U/L (22-51) 07/06/20 22:43 Vitamin B12 406 pg/mL (180-914) 07/11/20 05:09 Folate 4.83 ng/mL (5.90 - >24.8) L 07/11/20 05:09 TSH 2.53 uIU/mL (0.34-5.60) 07/06/20 22:43 Urine Color YELLOW 07/07/20 15:41 Urine Clarity CLEAR (CLEAR) 07/07/20 15:41 Urine pH 6.0 PH (5.0-7.5) 07/07/20 15:41 Ur Specific [place] 1.020 (1.002-1.030) 07/07/20 15:41 Urine Protein 100 mg/dL (NEGATIVE) H 07/07/20 15:41 Urine Glucose (UA) NEGATIVE mg/dL (NEGATIVE) 07/07/20 15:41 Urine Ketones NEGATIVE mg/dL (NEGATIVE) 07/07/20 15:41 Urine Occult Blood LARGE (NEGATIVE) H 07/07/20 15:41 Urine Nitrite NEGATIVE (NEGATIVE) 07/07/20 15:41 Urine Bilirubin NEGATIVE (NEGATIVE) 07/07/20 15:41 Urine Urobilinogen 0.2 (NORMAL) E.U./dL (NORMAL) 07/07/20 15:41 Ur Leukocyte Esterase TRACE (NEGATIVE) H 07/07/20 15:41 Urine RBC 11-25 /HPF (0-5) H 07/07/20 15:41 Urine WBC >25 /HPF (0-3) H 07/07/20 15:41 Ur Squamous Epith Cells FEW Squamous (<= Few) 07/07/20 15:41 Urine Bacteria Few /HPF (None Seen) 07/07/20 15:41 Ur Microscopic Review INDICATED 07/07/20 15:41 Urine Culture Comments INDICATED 07/07/20 15:41 Last Dose Date 07/13/20 07/14/20 04:50 Last Dose Time 0800 07/14/20 04:50 Digoxin 1.0 ng/mL 07/14/20 04:50 Coronavirus (PCR) NEGATIVE 07/07/20 01:45 - Procedures Procedures: Procedures CONTROL BLEEDING IN GASTROINTESTINAL TRACT, ENDO (01/28/19)
[2020-07-14] MEDS: traZODone 50 MG TABLET PO SCH (21:05)
[2020-07-15] MEDS: SODIUM CHLORIDE FLUSH 0.9% 10 ML SYRINGE IVP SCH ×4 (00:21→23:44)
[2020-07-15 05:33] LABS: DIGOXIN 0.8 ng/mL
[2020-07-15] MEDS: PRENATAL VITAMIN TABLET PO SCH (08:09)
[2020-07-15] MEDS: FERROUS GLUCONATE 324 MG TABLET PO SCH (08:09)
[2020-07-15] MEDS: DIGOXIN 125 MCG TABLET PO SCH (08:09)
[2020-07-15] MEDS: FAMOTIDINE 20 MG TABLET PO SCH (08:21)
[2020-07-15] MEDS: APIXABAN 5 MG TABLET PO SCH ×2 (08:21→20:27)
[2020-07-15] MEDS: METOPROLOL TARTRATE 25 MG TABLET PO SCH ×2 (08:21→20:27)
[2020-07-15] MEDS: TAMSULOSIN 0.4 MG CAPSULE PO SCH (08:21)
[2020-07-15] MEDS: THIAMINE 100 MG TABLET PO SCH (08:22)
--- NOTE | 2020-07-15 16:16 | PROVIDER PROGRESS NOTE ---
Assessment/Plan - Problem List (1) DVT of lower extremity, bilateral Assessment/Plan: Tolerating Eliquis (2) Dementia Assessment/Plan: He is cooperative and pleasant, is getting used to his surroundings. He understood starting yesterday that he could not go home alone and agreed to be placed in a SNF. Social work is working on finding a place to accept him in a SNF. A COVID test will be sent off today (again) since the last one was done over a week ago. (3) Atrial fibrillation with RVR Assessment/Plan: RVR has resolved, the rate is controlled, telemetry was stopped several days ago (4) Acute kidney injury superimposed on chronic kidney disease Assessment/Plan: He has had improvement daily since admission. There was no lab drawn today. Check BMP tomorrow. (5) Systolic heart failure Assessment/Plan: Stable without volume overload, on current meds (6) Anemia Qualifiers: Anemia type: iron deficiency Assessment/Plan: Stable. There were no labs done today. Check CBC tomorrow (7) Weakness Assessment/Plan: He is improving, working with PT daily, uses a walker and ambulates in the hallways. SNF for rehab is planned (8) BPH (benign prostatic hyperplasia) Assessment/Plan: When he was hypotensive earlier this admission, the tamsulosin 0.8 mg was decreased to 0.4 mg and there have been no complaints of dribbling or urinary retention (9) Alcohol consumption of more than two drinks per day Assessment/Plan: He is on daily thiamine replacement (10) Rhabdomyolysis Qualifiers: Rhabdomyolysis type: traumatic Assessment/Plan: Resolved (11) Hyponatremia Assessment/Plan: Resolved (12) Hypotension Assessment/Plan: Resolved - Current Meds Current Meds: Current Medications Generic Name Dose Route Start Last Admin Trade Name Freq PRN Reason Stop Dose Admin Acetaminophen 650 mg 07/06/20 23:52 07/10/20 08:29 Tylenol PO 650 mg Q4HR PRN Administration Pain 1 to 4 Apixaban 10 mg 07/09/20 21:00 07/15/20 08:21 Eliquis PO 07/16/20 09:01 10 mg BID JOSE LUIS Administration Digoxin 125 mcg 07/13/20 08:00 07/15/20 08:09 Lanoxin PO 125 mcg TUTHSA JOSE LUIS Administration Famotidine 20 mg 07/15/20 09:00 07/15/20 08:21 Pepcid PO 20 mg Q48H JOSE LUIS Administration Ferrous Gluconate 324 mg 07/13/20 08:00 07/15/20 08:09 Fergon PO 324 mg DAILYWM JOSE LUIS Administration Metoprolol Tartrate 37.5 mg 07/11/20 21:00 07/15/20 08:21 Lopressor PO 37.5 mg BID JOSE LUIS Administration Multivit/Folic Acid/Iron 1 tab 07/11/20 08:00 07/15/20 08:09 Trinatal Rx 1 PO 1 tab DAILYWM JOSE LUIS Administration Sodium Chloride 10 ml 07/06/20 23:52 07/10/20 12:41 Normal Saline Flush 0.9% IVP 10 ml PRN PRN Administration NEEDED PER PROVIDER ORDERS Sodium Chloride 10 ml 07/07/20 01:00 07/15/20 10:47 Normal Saline Flush 0.9% IVP 10 ml 0100,0900,1700 JOSE LUIS Administration Tamsulosin HCl 0.4 mg 07/12/20 09:00 07/15/20 08:21 Flomax PO 0.4 mg DAILY JOSE LUIS Administration Thiamine HCl 100 mg 07/11/20 09:00 07/15/20 08:22 Vitamin B-1 PO 100 mg DAILY JOSE LUIS Administration Throat Lozenges 1 lozenge 07/14/20 10:50 07/14/20 12:00 Cepacol MM 1 lozenge Q2HR PRN Administration Throat pain Trazodone HCl 25 mg 07/07/20 21:00 07/14/20 21:05 Desyrel PO 25 mg QPM JOSE LUIS Administration - Lab Result Fish Bone Diagrams: 07/13/20 04:05 07/14/20 04:50 - Additional Planning My Orders: My Active Orders 07/15/20 09:00 Famotidine [Pepcid] 20 mg PO Q48H 07/15/20 09:17 COVID-19 REFERENCE TEST Routine 07/16/20 05:00 DIGOXIN [CHEM] DAILYLAB Subjective - Subjective Patient Reports: Resting Comfortably, No Complaints Objective Vital Signs: Vital Signs - 24 hr 07/14/20 07/14/20 07/15/20 21:05 23:50 07:49 Temperature 37.0 C 36.9 C Heart Rate [ 88 Brachial] Heart Rate [ 92 Monitoring electrodes] Respiratory 20 20 Rate Blood Pressure 118/73 Blood Pressure 134/98 H [Left Brachial artery] Blood Pressure 140/84 H [Right Brachial artery] O2 Saturation 94 93 Oxygen O2 Source [With Activity] Room air O2 Source [Without Activity] Room air O2 Source Room air Oxygen Flow Rate 2 I&O (Last 24 Hrs): Intake and Output Totals x24h 07/13/20 07/14/20 07/15/20 23:59 23:59 23:59 Intake Total 1250 1410 420 Output Total 1550 1325 1551 Balance -300 85 -1131 General: Alert HEENT: Mucous membr. moist/pink Neuro: Alert, Disoriented Cardiovascular: No murmurs Respiratory: No respiratory distress Abdomen: Soft Extremities: Other (Trace pretibial edema) - Results Results: Laboratory Results WBC 5.8 x10^3/uL (4.8-10.8) 07/13/20 04:05 RBC 3.00 10^6/uL (4.70-6.10) L 07/13/20 04:05 Hgb 10.1 g/dL (14.0-18.0) L 07/13/20 04:05 Hct 30.3 % (42.0-52.0) L 07/13/20 04:05 MCV 101.0 fL (80.0-94.0) H 07/13/20 04:05 MCH 33.7 pg (27.0-31.0) H 07/13/20 04:05 MCHC 33.3 g/dL (32.0-36.0) 07/13/20 04:05 RDW 17.1 % (12.0-15.0) H 07/13/20 04:05 Plt Count 180 10^3/uL (130-450) 07/13/20 04:05 MPV 9.6 fL (7.4-11.4) 07/13/20 04:05 Neut # (Auto) 4.6 10^3/uL (1.5-6.6) 07/13/20 04:05 Lymph # (Auto) 0.6 10^3/uL (1.5-3.5) L 07/13/20 04:05 [place] # (Auto) 0.4 10^3/uL (0.0-1.0) 07/13/20 04:05 Eos # (Auto) 0.1 10^3/uL (0.0-0.7) 07/13/20 04:05 Baso # (Auto) 0.0 10^3/uL (0.0-0.1) 07/13/20 04:05 Absolute Nucleated RBC 0.00 x10^3/uL 07/13/20 04:05 Total Counted 100 07/08/20 07:13 Band Neuts % (Manual) 3 % (0-10) 07/08/20 07:13 Abnorm Lymph % (Manual) 0 % 07/08/20 07:13 Nucleated RBC % 0.0 /100WBC 07/13/20 04:05 Neutrophils # (Manual) 6.4 10^3/uL (1.5-6.6) 07/08/20 07:13 Lymphocytes # (Manual) 0.6 10^3/uL (1.5-3.5) L 07/08/20 07:13 Monocytes # (Manual) 0.4 10^3/uL (0.0-1.0) 07/08/20 07:13 Eosinophils # (Manual) 0.0 10^3/uL (0-0.7) 07/08/20 07:13 Basophils # (Manual) 0.0 10^3/uL (0-0.1) 07/08/20 07:13 Differential Comment MANUAL DIFFERENTIAL 07/08/20 07:13 WBC Morphology NORMAL APPEARANCE (NORMAL) 07/08/20 07:13 Platelet Estimate NORMAL (130-450,000) (NORMAL) 07/08/20 07:13 Platelet Morphology NORMAL APPEARANCE (NORMAL) 07/08/20 07:13 RBC Morph Micro Appear 1+ OVALOCYTES (NORMAL) 1+ POLYCHROMASIA (NORMAL) 07/08/20 07:13 RBC Morph Micro Appear 1+ OVALOCYTES (NORMAL) 1+ POLYCHROMASIA (NORMAL) 07/08/20 07:13 Sodium 139 mmol/L (135-145) 07/14/20 04:50 Potassium 3.6 mmol/L (3.5-5.0) 07/14/20 04:50 Chloride 104 mmol/L (101-111) 07/14/20 04:50 Carbon Dioxide 25 mmol/L (21-32) 07/14/20 04:50 Anion Gap 10.0 (6-13) 07/14/20 04:50 BUN 42 mg/dL (6-20) H 07/14/20 04:50 Creatinine 1.8 mg/dL (0.6-1.2) H 07/14/20 04:50 Estimated GFR (MDRD) 36 (>89) L 07/14/20 04:50 Glucose 106 mg/dL (70-100) H 07/14/20 04:50 Lactic Acid 2.2 mmol/L (0.5-2.2) 07/07/20 00:05 Calcium 8.8 mg/dL (8.5-10.3) 07/14/20 04:50 Phosphorus 3.7 mg/dL (2.5-4.6) 07/11/20 05:09 Magnesium 2.0 mg/dL (1.7-2.8) 07/11/20 05:09 Iron 15 ug/dL (45-182) L 07/12/20 04:40 TIBC 179 ug/dL (250-450) L 07/12/20 04:40 % Saturation 8 % (20-50) L 07/12/20 04:40 Transferrin 128 mg/dL (180-329) L 07/12/20 04:40 Total Bilirubin 0.7 mg/dL (0.2-1.0) 07/06/20 22:43 AST 81 IU/L (10-42) H 07/06/20 22:43 ALT 25 IU/L (10-60) 07/06/20 22:43 Alkaline Phosphatase 76 IU/L (42-121) 07/06/20 22:43 Total Creatine Kinase 138 IU/L (22-269) 07/12/20 04:40 CK-MB (CK-2) 52.6 ng/mL (0.6-6.3) H 07/06/20 22:43 Troponin I High Sens 146.1 ng/L (2.3-19.7) H* 07/07/20 05:30 B-Natriuretic Peptide 1021 pg/mL (5-100) H 07/07/20 00:05 Total Protein 6.4 g/dL (6.7-8.2) L 07/06/20 22:43 Albumin 2.7 g/dL (3.2-5.5) L 07/06/20 22:43 Globulin 3.7 g/dL (2.1-4.2) 07/06/20 22:43 Albumin/Globulin Ratio 0.7 (1.0-2.2) L 07/06/20 22:43 Lipase 27 U/L (22-51) 07/06/20 22:43 Vitamin B12 406 pg/mL (180-914) 07/11/20 05:09 Folate 4.83 ng/mL (5.90 - >24.8) L 07/11/20 05:09 TSH 2.53 uIU/mL (0.34-5.60) 07/06/20 22:43 Urine Color YELLOW 07/07/20 15:41 Urine Clarity CLEAR (CLEAR) 07/07/20 15:41 Urine pH 6.0 PH (5.0-7.5) 07/07/20 15:41 Ur Specific [place] 1.020 (1.002-1.030) 07/07/20 15:41 Urine Protein 100 mg/dL (NEGATIVE) H 07/07/20 15:41 Urine Glucose (UA) NEGATIVE mg/dL (NEGATIVE) 07/07/20 15:41 Urine Ketones NEGATIVE mg/dL (NEGATIVE) 07/07/20 15:41 Urine Occult Blood LARGE (NEGATIVE) H 07/07/20 15:41 Urine Nitrite NEGATIVE (NEGATIVE) 07/07/20 15:41 Urine Bilirubin NEGATIVE (NEGATIVE) 07/07/20 15:41 Urine Urobilinogen 0.2 (NORMAL) E.U./dL (NORMAL) 07/07/20 15:41 Ur Leukocyte Esterase TRACE (NEGATIVE) H 07/07/20 15:41 Urine RBC 11-25 /HPF (0-5) H 07/07/20 15:41 Urine WBC >25 /HPF (0-3) H 07/07/20 15:41 Ur Squamous Epith Cells FEW Squamous (<= Few) 07/07/20 15:41 Urine Bacteria Few /HPF (None Seen) 07/07/20 15:41 Ur Microscopic Review INDICATED 07/07/20 15:41 Urine Culture Comments INDICATED 07/07/20 15:41 Last Dose Date 07/13/20 07/15/20 04:25 Last Dose Time 0800 07/15/20 04:25 Digoxin 0.8 ng/mL 07/15/20 04:25 Coronavirus (PCR) NEGATIVE 07/07/20 01:45 - Procedures Procedures: Procedures CONTROL BLEEDING IN GASTROINTESTINAL TRACT, ENDO (01/28/19)
[2020-07-15] MEDS: traZODone 50 MG TABLET PO SCH (20:27)
[2020-07-16 05:23] LABS: BASOPHILS % (AUTO) 0.4 %; EOSINOPHILS % (AUTO) 0.8 %; LYMPHOCYTES # (AUTO) 0.7 10^3/uL (1.5-3.5); LYMPHOCYTES % (AUTO) 13.5 %; MEAN CORPUSCULAR HEMOGLOBIN 33.1 pg (27.0-31.0); MEAN CORPUSCULAR HGB CONC 32.9 g/dL (32.0-36.0); MEAN CORPUSCULAR VOLUME 100.7 fL (80.0-94.0); MEAN PLATELET VOLUME 9.6 fL (7.4-11.4); MONOCYTES # (AUTO) 0.3 10^3/uL (0.0-1.0); MONOCYTES % (AUTO) 6.2 %; NEUTROPHILS # (AUTO) 3.8 10^3/uL (1.5-6.6); NEUTROPHILS % (AUTO) 76.5 %; PLT - PLATELET COUNT 202 10^3/uL (130-450); RED BLOOD COUNT 3.02 10^6/uL (4.70-6.10); RED CELL DISTRIBUTION WIDTH 17.2 % (12.0-15.0)
[2020-07-16 05:39] LABS: BUN - BLOOD UREA NITROGEN 40 mg/dL (6-20); CARBON DIOXIDE - CO2 27 mmol/L (21-32); CHLORIDE 100 mmol/L (101-111); CREATININE 1.6 mg/dL (0.6-1.2); DIGOXIN 0.9 ng/mL; GLUCOSE 102 mg/dL (70-100); SODIUM 137 mmol/L (135-145)
[2020-07-16] MEDS: PRENATAL VITAMIN TABLET PO SCH (07:46)
[2020-07-16] MEDS: FERROUS GLUCONATE 324 MG TABLET PO SCH (07:46)
[2020-07-16] MEDS: FAMOTIDINE 20 MG TABLET PO SCH (08:29)
[2020-07-16] MEDS: METOPROLOL TARTRATE 25 MG TABLET PO SCH ×2 (08:29→21:12)
[2020-07-16] MEDS: THIAMINE 100 MG TABLET PO SCH (08:30)
[2020-07-16] MEDS: APIXABAN 5 MG TABLET PO SCH ×2 (08:30→21:13)
[2020-07-16] MEDS: TAMSULOSIN 0.4 MG CAPSULE PO SCH (08:30)
[2020-07-16] MEDS: SODIUM CHLORIDE FLUSH 0.9% 10 ML SYRINGE IVP SCH ×2 (08:30→17:51)
--- NOTE | 2020-07-16 16:39 | PROVIDER PROGRESS NOTE ---
Assessment/Plan - Problem List (1) DVT of lower extremity, bilateral Assessment/Plan: Tolerating Eliquis, the dose changes upcoming and already scheduled (2) Dementia Assessment/Plan: Yesterday there was discussion about a DPOA. Possibly the patient is focused now on and dying because of that topic. Today and for the last 2 days he has voiced that he understands he cannot go home to live alone. Social work is trying to find him a discharge location to SNF and/or long-term care (3) Atrial fibrillation with RVR Assessment/Plan: Heart rate is now controlled. Telemetry was stopped. He is on Eliquis. (4) Acute kidney injury superimposed on chronic kidney disease Assessment/Plan: Slowly improved during this admission when he was on IV fluids (5) Systolic heart failure Assessment/Plan: LVEF documented at 50% this hospitalization but there were no overt signs of fluid overload (6) Anemia Qualifiers: Anemia type: iron deficiency Assessment/Plan: He is getting oral iron replace, and folate in the MOV (7) Weakness Assessment/Plan: He is cooperative and working with PT (8) BPH (benign prostatic hyperplasia) Assessment/Plan: No complaints of dribbling or urinary retention (after the tamsulosin 0.8 mg dose was decreased to 0.4 mg because of hypotension earlier this hospitaliza tion) (9) Alcohol consumption of more than two drinks per day Assessment/Plan: He never went through withdrawal. He gets thiamine orally daily (10) Rhabdomyolysis Qualifiers: Rhabdomyolysis type: traumatic Assessment/Plan: Resolved. The friend who called in and gave some history did say he had a recent fall. (11) Hyponatremia Assessment/Plan: Resolved. (12) Hypotension Assessment/Plan: Resolved. - Current Meds Current Meds: Current Medications Generic Name Dose Route Start Last Admin Trade Name Freq PRN Reason Stop Dose Admin Acetaminophen 650 mg 07/06/20 23:52 07/10/20 08:29 Tylenol PO 650 mg Q4HR PRN Administration Pain 1 to 4 Digoxin 125 mcg 07/13/20 08:00 07/15/20 08:09 Lanoxin PO 125 mcg TUTHSA JOSE LUIS Administration Famotidine 20 mg 07/15/20 09:00 07/16/20 08:29 Pepcid PO 20 mg Q48H JOSE LUIS Administration Ferrous Gluconate 324 mg 07/13/20 08:00 07/16/20 07:46 Fergon PO 324 mg DAILYWM JOSE LUIS Administration Metoprolol Tartrate 37.5 mg 07/11/20 21:00 07/16/20 08:29 Lopressor PO 37.5 mg BID JOSE LUIS Administration Multivit/Folic Acid/Iron 1 tab 07/11/20 08:00 07/16/20 07:46 Trinatal Rx 1 PO 1 tab DAILYWM JOSE LUIS Administration Sodium Chloride 10 ml 07/06/20 23:52 07/10/20 12:41 Normal Saline Flush 0.9% IVP 10 ml PRN PRN Administration NEEDED PER PROVIDER ORDERS Sodium Chloride 10 ml 07/07/20 01:00 07/16/20 08:30 Normal Saline Flush 0.9% IVP 10 ml 0100,0900,1700 JOSE LUIS Administration Tamsulosin HCl 0.4 mg 07/12/20 09:00 07/16/20 08:30 Flomax PO 0.4 mg DAILY JOSE LUIS Administration Thiamine HCl 100 mg 07/11/20 09:00 07/16/20 08:30 Vitamin B-1 PO 100 mg DAILY JOSE LUIS Administration Throat Lozenges 1 lozenge 07/14/20 10:50 07/14/20 12:00 Cepacol MM 1 lozenge Q2HR PRN Administration Throat pain Trazodone HCl 25 mg 07/07/20 21:00 07/15/20 20:27 Desyrel PO 25 mg QPM JOSE LUIS Administration - Lab Result Fish Bone Diagrams: 07/16/20 04:55 07/16/20 04:55 Subjective - Subjective Patient Reports: Resting Comfortably, Other (He called his friend last night with a long discussion about how he thought he was dying.) Objective Vital Signs: Vital Signs - 24 hr 07/15/20 07/15/20 07/16/20 20:27 23:45 07:41 Temperature 36.4 C L 36.5 C Heart Rate [ 88 100 Brachial] Respiratory 18 22 Rate Blood Pressure 131/77 H Blood Pressure 125/89 H 147/82 H [Right Brachial artery] O2 Saturation 93 93 07/16/20 15:54 Temperature 36.2 C L Heart Rate [ 60 Brachial] Respiratory 22 Rate Blood Pressure Blood Pressure 135/82 H [Right Brachial artery] O2 Saturation 92 Oxygen O2 Source [With Activity] Room air O2 Source [Without Activity] Room air O2 Source Room air Oxygen Flow Rate 2 I&O (Last 24 Hrs): Intake and Output Totals x24h 07/14/20 07/15/20 07/16/20 23:59 23:59 23:59 Intake Total 1410 1360 620 Output Total 1325 1801 1450 Balance 19 -457 -320 General: Alert HEENT: Mucous membr. moist/pink Neck: Supple Neuro: Disoriented, Non Focal Cardiovascular: No murmurs Respiratory: No respiratory distress Abdomen: Soft Extremities: Other (1+ edema of legs) - Results Results: Laboratory Results WBC 5.0 x10^3/uL (4.8-10.8) 07/16/20 04:55 RBC 3.02 10^6/uL (4.70-6.10) L 07/16/20 04:55 Hgb 10.0 g/dL (14.0-18.0) L 07/16/20 04:55 Hct 30.4 % (42.0-52.0) L 07/16/20 04:55 MCV 100.7 fL (80.0-94.0) H 07/16/20 04:55 MCH 33.1 pg (27.0-31.0) H 07/16/20 04:55 MCHC 32.9 g/dL (32.0-36.0) 07/16/20 04:55 RDW 17.2 % (12.0-15.0) H 07/16/20 04:55 Plt Count 202 10^3/uL (130-450) 07/16/20 04:55 MPV 9.6 fL (7.4-11.4) 07/16/20 04:55 Neut # (Auto) 3.8 10^3/uL (1.5-6.6) 07/16/20 04:55 Lymph # (Auto) 0.7 10^3/uL (1.5-3.5) L 07/16/20 04:55 [place] # (Auto) 0.3 10^3/uL (0.0-1.0) 07/16/20 04:55 Eos # (Auto) 0.0 10^3/uL (0.0-0.7) 07/16/20 04:55 Baso # (Auto) 0.0 10^3/uL (0.0-0.1) 07/16/20 04:55 Absolute Nucleated RBC 0.00 x10^3/uL 07/16/20 04:55 Total Counted 100 07/08/20 07:13 Band Neuts % (Manual) 3 % (0-10) 07/08/20 07:13 Abnorm Lymph % (Manual) 0 % 07/08/20 07:13 Nucleated RBC % 0.0 /100WBC 07/16/20 04:55 Neutrophils # (Manual) 6.4 10^3/uL (1.5-6.6) 07/08/20 07:13 Lymphocytes # (Manual) 0.6 10^3/uL (1.5-3.5) L 07/08/20 07:13 Monocytes # (Manual) 0.4 10^3/uL (0.0-1.0) 07/08/20 07:13 Eosinophils # (Manual) 0.0 10^3/uL (0-0.7) 07/08/20 07:13 Basophils # (Manual) 0.0 10^3/uL (0-0.1) 07/08/20 07:13 Differential Comment MANUAL DIFFERENTIAL 07/08/20 07:13 WBC Morphology NORMAL APPEARANCE (NORMAL) 07/08/20 07:13 Platelet Estimate NORMAL (130-450,000) (NORMAL) 07/08/20 07:13 Platelet Morphology NORMAL APPEARANCE (NORMAL) 07/08/20 07:13 RBC Morph Micro Appear 1+ OVALOCYTES (NORMAL) 1+ POLYCHROMASIA (NORMAL) 07/08/20 07:13 RBC Morph Micro Appear 1+ OVALOCYTES (NORMAL) 1+ POLYCHROMASIA (NORMAL) 07/08/20 07:13 Sodium 137 mmol/L (135-145) 07/16/20 04:55 Potassium 3.7 mmol/L (3.5-5.0) 07/16/20 04:55 Chloride 100 mmol/L (101-111) L 07/16/20 04:55 Carbon Dioxide 27 mmol/L (21-32) 07/16/20 04:55 Anion Gap 10.0 (6-13) 07/16/20 04:55 BUN 40 mg/dL (6-20) H 07/16/20 04:55 Creatinine 1.6 mg/dL (0.6-1.2) H 07/16/20 04:55 Estimated GFR (MDRD) 41 (>89) L 07/16/20 04:55 Glucose 102 mg/dL (70-100) H 07/16/20 04:55 Lactic Acid 2.2 mmol/L (0.5-2.2) 07/07/20 00:05 Calcium 9.0 mg/dL (8.5-10.3) 07/16/20 04:55 Phosphorus 3.7 mg/dL (2.5-4.6) 07/11/20 05:09 Magnesium 2.0 mg/dL (1.7-2.8) 07/11/20 05:09 Iron 15 ug/dL (45-182) L 07/12/20 04:40 TIBC 179 ug/dL (250-450) L 07/12/20 04:40 % Saturation 8 % (20-50) L 07/12/20 04:40 Transferrin 128 mg/dL (180-329) L 07/12/20 04:40 Total Bilirubin 0.7 mg/dL (0.2-1.0) 07/06/20 22:43 AST 81 IU/L (10-42) H 07/06/20 22:43 ALT 25 IU/L (10-60) 07/06/20 22:43 Alkaline Phosphatase 76 IU/L (42-121) 07/06/20 22:43 Total Creatine Kinase 138 IU/L (22-269) 07/12/20 04:40 CK-MB (CK-2) 52.6 ng/mL (0.6-6.3) H 07/06/20 22:43 Troponin I High Sens 146.1 ng/L (2.3-19.7) H* 07/07/20 05:30 B-Natriuretic Peptide 1021 pg/mL (5-100) H 07/07/20 00:05 Total Protein 6.4 g/dL (6.7-8.2) L 07/06/20 22:43 Albumin 2.7 g/dL (3.2-5.5) L 07/06/20 22:43 Globulin 3.7 g/dL (2.1-4.2) 07/06/20 22:43 Albumin/Globulin Ratio 0.7 (1.0-2.2) L 07/06/20 22:43 Lipase 27 U/L (22-51) 07/06/20 22:43 Vitamin B12 406 pg/mL (180-914) 07/11/20 05:09 Folate 4.83 ng/mL (5.90 - >24.8) L 07/11/20 05:09 TSH 2.53 uIU/mL (0.34-5.60) 07/06/20 22:43 Urine Color YELLOW 07/07/20 15:41 Urine Clarity CLEAR (CLEAR) 07/07/20 15:41 Urine pH 6.0 PH (5.0-7.5) 07/07/20 15:41 Ur Specific [place] 1.020 (1.002-1.030) 07/07/20 15:41 Urine Protein 100 mg/dL (NEGATIVE) H 07/07/20 15:41 Urine Glucose (UA) NEGATIVE mg/dL (NEGATIVE) 07/07/20 15:41 Urine Ketones NEGATIVE mg/dL (NEGATIVE) 07/07/20 15:41 Urine Occult Blood LARGE (NEGATIVE) H 07/07/20 15:41 Urine Nitrite NEGATIVE (NEGATIVE) 07/07/20 15:41 Urine Bilirubin NEGATIVE (NEGATIVE) 07/07/20 15:41 Urine Urobilinogen 0.2 (NORMAL) E.U./dL (NORMAL) 07/07/20 15:41 Ur Leukocyte Esterase TRACE (NEGATIVE) H 07/07/20 15:41 Urine RBC 11-25 /HPF (0-5) H 07/07/20 15:41 Urine WBC >25 /HPF (0-3) H 07/07/20 15:41 Ur Squamous Epith Cells FEW Squamous (<= Few) 07/07/20 15:41 Urine Bacteria Few /HPF (None Seen) 07/07/20 15:41 Ur Microscopic Review INDICATED 07/07/20 15:41 Urine Culture Comments INDICATED 07/07/20 15:41 Last Dose Date 07/13/20 07/16/20 04:55 Last Dose Time 0800 07/16/20 04:55 Digoxin 0.9 ng/mL 07/16/20 04:55 Coronavirus (PCR) NEGATIVE 07/15/20 09:17 - Procedures Procedures: Procedures CONTROL BLEEDING IN GASTROINTESTINAL TRACT, ENDO (01/28/19)
[2020-07-16] MEDS: traZODone 50 MG TABLET PO SCH (21:12)
[2020-07-17] MEDS: SODIUM CHLORIDE FLUSH 0.9% 10 ML SYRINGE IVP SCH ×4 (00:35→23:52)
[2020-07-17] MEDS: PRENATAL VITAMIN TABLET PO SCH (08:11)
[2020-07-17] MEDS: FERROUS GLUCONATE 324 MG TABLET PO SCH (08:11)
[2020-07-17] MEDS: METOPROLOL TARTRATE 25 MG TABLET PO SCH ×2 (08:32→21:25)
[2020-07-17] MEDS: TAMSULOSIN 0.4 MG CAPSULE PO SCH (08:33)
[2020-07-17] MEDS: APIXABAN 5 MG TABLET PO SCH ×2 (08:33→21:25)
[2020-07-17] MEDS: THIAMINE 100 MG TABLET PO SCH (08:33)
--- NOTE | 2020-07-17 11:44 | PHARMACY PROGRESS NOTE ---
- Monitoring Indication for anticoagulation: Atrial Fibrillation, Treatment of DVT (bilateral DVT found on venous Doppler (see MD progress note 07/08/20)) Previous home regime: none Potentially interacting medications: Trazodone may increase risk of bleeding Other anticoagulation: None Risk factors for bleed: Hypertension, Heart disease or VT, Renal insufficiency - Recommendations Dosing: Anticoagulation Monitoring 07/16/20 07/13/20 07/11/20 04:55 04:05 05:09 Hgb 10.0 L 10.1 L 10.7 L Hct 30.4 L 30.3 L 31.6 L 07/10/20 07/09/20 07/08/20 05:25 04:36 07:13 Hgb 9.9 L 11.1 L 12.4 L Hct 29.4 L 33.1 L 38.0 L 07/07/20 07/07/20 07/06/20 05:30 00:05 22:43 Hgb 10.5 L 11.1 L 10.6 L Hct 31.8 L 34.7 L 32.8 L Last Dose Given: S&S of bleeding: Pharmacy recommendation: Continue current regime
--- NOTE | 2020-07-17 19:14 | PROVIDER PROGRESS NOTE ---
Assessment/Plan - Problem List (1) DVT of lower extremity, bilateral Assessment/Plan: Continue with plan for Eliquis, the higher dose is about to change to the lower dose. Plan is 3 months of therapy (2) Dementia Assessment/Plan: He was living alone. Initially he was delirious. His friend who called have told me that they tried to get him to establish with a D POA for many years which he never did. Over the last 5 to 6 days he has voiced understanding that he cannot go back to live independently. He is agreeing to placement in a SNF. Social work is arranging placement (3) Atrial fibrillation with RVR Assessment/Plan: The heart rate is now controlled, telemetry was stopped several days ago. Check Dig level, he gets it just 3 days a week He is on Eliquis (4) Acute kidney injury superimposed on chronic kidney disease Assessment/Plan: Stable but abnormal (5) Systolic heart failure Assessment/Plan: Ring this hospitalization, LVEF was found to be slightly low. He is stable current meds and was never in a CHF exacerbation. (6) Anemia Qualifiers: Anemia type: iron deficiency Assessment/Plan: He was started on iron during this admission (7) Weakness Assessment/Plan: This has improved significantly since admission. Physical therapy at SNF is planned (8) BPH (benign prostatic hyperplasia) Assessment/Plan: He was on tamsulosin 0.8 mg at admission, this needed to be lowered to 0.4 mg because of hypotension earlier this admission. There are no complaints of dribbling or urinary retention on this current dose. (9) Alcohol consumption of more than two drinks per day Assessment/Plan: No signs of withdrawal during this hospitalization. He is on daily oral thiamine (10) Rhabdomyolysis Qualifiers: Rhabdomyolysis type: traumatic Assessment/Plan: The friend told to several days into the admission that he did sustain a fall in his house. Elevated CK has resolved with hydration (11) Hyponatremia Assessment/Plan: Resolved (12) Hypotension Assessment/Plan: Resolved - Current Meds Current Meds: Current Medications Generic Name Dose Route Start Last Admin Trade Name Freq PRN Reason Stop Dose Admin Acetaminophen 650 mg 07/06/20 23:52 07/10/20 08:29 Tylenol PO 650 mg Q4HR PRN Administration Pain 1 to 4 Apixaban 5 mg 07/16/20 21:00 07/17/20 08:33 Eliquis PO 5 mg BID JOSE LUIS Administration Digoxin 125 mcg 07/13/20 08:00 07/15/20 08:09 Lanoxin PO 125 mcg TUTHSA JOSE LUIS Administration Famotidine 20 mg 07/15/20 09:00 07/16/20 08:29 Pepcid PO 20 mg Q48H JOSE LUIS Administration Ferrous Gluconate 324 mg 07/13/20 08:00 07/17/20 08:11 Fergon PO 324 mg DAILYWM JOSE LUIS Administration Metoprolol Tartrate 37.5 mg 07/11/20 21:00 07/17/20 08:32 Lopressor PO 37.5 mg BID JOSE LUIS Administration Multivit/Folic Acid/Iron 1 tab 07/11/20 08:00 07/17/20 08:11 Trinatal Rx 1 PO 1 tab DAILYWM JOSE LUIS Administration Sodium Chloride 10 ml 07/06/20 23:52 07/10/20 12:41 Normal Saline Flush 0.9% IVP 10 ml PRN PRN Administration NEEDED PER PROVIDER ORDERS Sodium Chloride 10 ml 07/07/20 01:00 07/17/20 08:34 Normal Saline Flush 0.9% IVP 10 ml 0100,0900,1700 JOSE LUIS Administration Tamsulosin HCl 0.4 mg 07/12/20 09:00 07/17/20 08:33 Flomax PO 0.4 mg DAILY JOSE LUIS Administration Thiamine HCl 100 mg 07/11/20 09:00 07/17/20 08:33 Vitamin B-1 PO 100 mg DAILY JOSE LUIS Administration Throat Lozenges 1 lozenge 07/14/20 10:50 07/14/20 12:00 Cepacol MM 1 lozenge Q2HR PRN Administration Throat pain Trazodone HCl 25 mg 07/07/20 21:00 07/16/20 21:12 Desyrel PO 25 mg QPM JOSE LUIS Administration - Lab Result Fish Bone Diagrams: 07/16/20 04:55 07/16/20 04:55 - Additional Planning My Orders: My Active Orders 07/18/20 05:00 CBC - COMP BLD CT W/AUTO DIFF [HEME] DAILYLAB CMP [COMPREHENSIVE METABOLIC PANEL] [CHEM] DAILYLAB MAGNESIUM [CHEM] DAILYLAB Subjective - Subjective Patient Reports: Fatigue (He is sleeping more yesterday and today than the previous several days. He is able to get up and walk with PT.) Objective Vital Signs: Vital Signs - 24 hr 07/16/20 07/17/20 07/17/20 21:12 00:59 08:44 Temperature 36.6 C 36.3 C L Heart Rate [ 86 79 Brachial] Respiratory 20 18 Rate Blood Pressure 135/78 H Blood Pressure 119/79 120/68 [Right Brachial artery] O2 Saturation 92 92 07/17/20 15:42 Temperature 36.7 C Heart Rate [ 87 Brachial] Respiratory 21 Rate Blood Pressure Blood Pressure 122/64 [Right Brachial artery] O2 Saturation 97 Oxygen O2 Source [With Activity] Room air O2 Source [Without Activity] Room air O2 Source Room air Oxygen Flow Rate 2 I&O (Last 24 Hrs): Intake and Output Totals x24h 07/15/20 07/16/20 07/17/20 23:59 23:59 23:59 Intake Total 1360 1470 950 Output Total 1801 1750 1475 Balance -441 -280 -525 General: Other (Sleepy) HEENT: Mucous membr. moist/pink Neck: Supple, No JVD Neuro: Alert, Disoriented Cardiovascular: Other (Irreg irreg) Respiratory: No respiratory distress Abdomen: Soft Extremities: No edema - Results Results: Laboratory Results WBC 5.0 x10^3/uL (4.8-10.8) 07/16/20 04:55 RBC 3.02 10^6/uL (4.70-6.10) L 07/16/20 04:55 Hgb 10.0 g/dL (14.0-18.0) L 07/16/20 04:55 Hct 30.4 % (42.0-52.0) L 07/16/20 04:55 MCV 100.7 fL (80.0-94.0) H 07/16/20 04:55 MCH 33.1 pg (27.0-31.0) H 07/16/20 04:55 MCHC 32.9 g/dL (32.0-36.0) 07/16/20 04:55 RDW 17.2 % (12.0-15.0) H 07/16/20 04:55 Plt Count 202 10^3/uL (130-450) 07/16/20 04:55 MPV 9.6 fL (7.4-11.4) 07/16/20 04:55 Neut # (Auto) 3.8 10^3/uL (1.5-6.6) 07/16/20 04:55 Lymph # (Auto) 0.7 10^3/uL (1.5-3.5) L 07/16/20 04:55 [place] # (Auto) 0.3 10^3/uL (0.0-1.0) 07/16/20 04:55 Eos # (Auto) 0.0 10^3/uL (0.0-0.7) 07/16/20 04:55 Baso # (Auto) 0.0 10^3/uL (0.0-0.1) 07/16/20 04:55 Absolute Nucleated RBC 0.00 x10^3/uL 07/16/20 04:55 Total Counted 100 07/08/20 07:13 Band Neuts % (Manual) 3 % (0-10) 07/08/20 07:13 Abnorm Lymph % (Manual) 0 % 07/08/20 07:13 Nucleated RBC % 0.0 /100WBC 07/16/20 04:55 Neutrophils # (Manual) 6.4 10^3/uL (1.5-6.6) 07/08/20 07:13 Lymphocytes # (Manual) 0.6 10^3/uL (1.5-3.5) L 07/08/20 07:13 Monocytes # (Manual) 0.4 10^3/uL (0.0-1.0) 07/08/20 07:13 Eosinophils # (Manual) 0.0 10^3/uL (0-0.7) 07/08/20 07:13 Basophils # (Manual) 0.0 10^3/uL (0-0.1) 07/08/20 07:13 Differential Comment MANUAL DIFFERENTIAL 07/08/20 07:13 WBC Morphology NORMAL APPEARANCE (NORMAL) 07/08/20 07:13 Platelet Estimate NORMAL (130-450,000) (NORMAL) 07/08/20 07:13 Platelet Morphology NORMAL APPEARANCE (NORMAL) 07/08/20 07:13 RBC Morph Micro Appear 1+ OVALOCYTES (NORMAL) 1+ POLYCHROMASIA (NORMAL) 07/08/20 07:13 RBC Morph Micro Appear 1+ OVALOCYTES (NORMAL) 1+ POLYCHROMASIA (NORMAL) 07/08/20 07:13 Sodium 137 mmol/L (135-145) 07/16/20 04:55 Potassium 3.7 mmol/L (3.5-5.0) 07/16/20 04:55 Chloride 100 mmol/L (101-111) L 07/16/20 04:55 Carbon Dioxide 27 mmol/L (21-32) 07/16/20 04:55 Anion Gap 10.0 (6-13) 07/16/20 04:55 BUN 40 mg/dL (6-20) H 07/16/20 04:55 Creatinine 1.6 mg/dL (0.6-1.2) H 07/16/20 04:55 Estimated GFR (MDRD) 41 (>89) L 07/16/20 04:55 Glucose 102 mg/dL (70-100) H 07/16/20 04:55 Lactic Acid 2.2 mmol/L (0.5-2.2) 07/07/20 00:05 Calcium 9.0 mg/dL (8.5-10.3) 07/16/20 04:55 Phosphorus 3.7 mg/dL (2.5-4.6) 07/11/20 05:09 Magnesium 2.0 mg/dL (1.7-2.8) 07/11/20 05:09 Iron 15 ug/dL (45-182) L 07/12/20 04:40 TIBC 179 ug/dL (250-450) L 07/12/20 04:40 % Saturation 8 % (20-50) L 07/12/20 04:40 Transferrin 128 mg/dL (180-329) L 07/12/20 04:40 Total Bilirubin 0.7 mg/dL (0.2-1.0) 07/06/20 22:43 AST 81 IU/L (10-42) H 07/06/20 22:43 ALT 25 IU/L (10-60) 07/06/20 22:43 Alkaline Phosphatase 76 IU/L (42-121) 07/06/20 22:43 Total Creatine Kinase 138 IU/L (22-269) 07/12/20 04:40 CK-MB (CK-2) 52.6 ng/mL (0.6-6.3) H 07/06/20 22:43 Troponin I High Sens 146.1 ng/L (2.3-19.7) H* 07/07/20 05:30 B-Natriuretic Peptide 1021 pg/mL (5-100) H 07/07/20 00:05 Total Protein 6.4 g/dL (6.7-8.2) L 07/06/20 22:43 Albumin 2.7 g/dL (3.2-5.5) L 07/06/20 22:43 Globulin 3.7 g/dL (2.1-4.2) 07/06/20 22:43 Albumin/Globulin Ratio 0.7 (1.0-2.2) L 07/06/20 22:43 Lipase 27 U/L (22-51) 07/06/20 22:43 Vitamin B12 406 pg/mL (180-914) 07/11/20 05:09 Folate 4.83 ng/mL (5.90 - >24.8) L 07/11/20 05:09 TSH 2.53 uIU/mL (0.34-5.60) 07/06/20 22:43 Urine Color YELLOW 07/07/20 15:41 Urine Clarity CLEAR (CLEAR) 07/07/20 15:41 Urine pH 6.0 PH (5.0-7.5) 07/07/20 15:41 Ur Specific [place] 1.020 (1.002-1.030) 07/07/20 15:41 Urine Protein 100 mg/dL (NEGATIVE) H 07/07/20 15:41 Urine Glucose (UA) NEGATIVE mg/dL (NEGATIVE) 07/07/20 15:41 Urine Ketones NEGATIVE mg/dL (NEGATIVE) 07/07/20 15:41 Urine Occult Blood LARGE (NEGATIVE) H 07/07/20 15:41 Urine Nitrite NEGATIVE (NEGATIVE) 07/07/20 15:41 Urine Bilirubin NEGATIVE (NEGATIVE) 07/07/20 15:41 Urine Urobilinogen 0.2 (NORMAL) E.U./dL (NORMAL) 07/07/20 15:41 Ur Leukocyte Esterase TRACE (NEGATIVE) H 07/07/20 15:41 Urine RBC 11-25 /HPF (0-5) H 07/07/20 15:41 Urine WBC >25 /HPF (0-3) H 07/07/20 15:41 Ur Squamous Epith Cells FEW Squamous (<= Few) 07/07/20 15:41 Urine Bacteria Few /HPF (None Seen) 07/07/20 15:41 Ur Microscopic Review INDICATED 07/07/20 15:41 Urine Culture Comments INDICATED 07/07/20 15:41 Last Dose Date 07/13/20 07/16/20 04:55 Last Dose Time 0800 07/16/20 04:55 Digoxin 0.9 ng/mL 07/16/20 04:55 Coronavirus (PCR) NEGATIVE 07/15/20 09:17 - Procedures Procedures: Procedures CONTROL BLEEDING IN GASTROINTESTINAL TRACT, ENDO (01/28/19)
[2020-07-17] MEDS: traZODone 50 MG TABLET PO SCH (21:23)
[2020-07-18 03:49] LABS: BASOPHILS % (AUTO) 0.5 %; EOSINOPHILS # (AUTO) 0.1 10^3/uL (0.0-0.7); EOSINOPHILS % (AUTO) 1.6 %; LYMPHOCYTES # (AUTO) 0.8 10^3/uL (1.5-3.5); LYMPHOCYTES % (AUTO) 17.2 %; MEAN CORPUSCULAR HEMOGLOBIN 33.2 pg (27.0-31.0); MEAN CORPUSCULAR HGB CONC 32.7 g/dL (32.0-36.0); MEAN CORPUSCULAR VOLUME 101.7 fL (80.0-94.0); MEAN PLATELET VOLUME 10.2 fL (7.4-11.4); MONOCYTES # (AUTO) 0.3 10^3/uL (0.0-1.0); NEUTROPHILS # (AUTO) 3.2 10^3/uL (1.5-6.6); NEUTROPHILS % (AUTO) 73.3 %; PLT - PLATELET COUNT 219 10^3/uL (130-450); RED BLOOD COUNT 3.01 10^6/uL (4.70-6.10); WHITE BLOOD COUNT 4.4 x10^3/uL (4.8-10.8)
[2020-07-18 04:01] LABS: ALBUMIN 2.7 g/dL (3.2-5.5); ALBUMIN/GLOBULIN RATIO 0.7 (1.0-2.2); CALCIUM 9.1 mg/dL (8.5-10.3); CREATININE 1.8 mg/dL (0.6-1.2); MAGNESIUM 2.2 mg/dL (1.7-2.8); TOTAL PROTEIN 6.5 g/dL (6.7-8.2)
[2020-07-18 04:19] LABS: DIGOXIN 0.8 ng/mL
[2020-07-18] MEDS: METOPROLOL TARTRATE 25 MG TABLET PO SCH (08:17)
[2020-07-18] MEDS: TAMSULOSIN 0.4 MG CAPSULE PO SCH (08:17)
[2020-07-18] MEDS: THIAMINE 100 MG TABLET PO SCH (08:17)
[2020-07-18] MEDS: PRENATAL VITAMIN TABLET PO SCH (08:19)
[2020-07-18] MEDS: FERROUS GLUCONATE 324 MG TABLET PO SCH (08:19)
[2020-07-18] MEDS: APIXABAN 5 MG TABLET PO SCH (08:19)
[2020-07-18] MEDS: DIGOXIN 125 MCG TABLET PO SCH (08:19)
[2020-07-18] MEDS: SODIUM CHLORIDE FLUSH 0.9% 10 ML SYRINGE IVP SCH (08:24)
[2020-07-18 08:26] VITALS: BP 124/88
--- NOTE | 2020-07-18 11:51 | Discharge Plan ---
"Discharge Plan for SNF / [facility]ENN[facility] - Discharge Plan And Transition Orders Problem Reviewed?: Yes Disposition: 03 [facility] DC/Xfer Condition: Stable Allergies and Adverse Reactions: Allergies Allergy/AdvReac Type Severity Reaction Status Date / Time Penicillins Allergy Unknown Verified 09/08/14 07:36 Health Concerns: bilateral lower extremities DVT, Afib with RVR Plan of Treatment: pt was found to have bilateral lower extremities DVT, now he is on Eliquis, continue followup with his PCP and SNF health provider for continuing management. Pt has Afib RVR, pt is on digoxin now, 3 days per week, because of his CKD for dosage adjustment, his HR is controlled now. advise followup with his PCP and SNF health provider for continuing of management, and recheck Digoxin therapeutic level as well. Care Goals: stabilization and improvement of his medical conditions. Assessment: discussed care plan with pt, answered his questions, but pt also had underline of hx of dementia. - SNF / [facility] Transition Orders Admit to (Facility): [facility] Under the care of (Name): his PCP and health provider of SNF Discharge Diagnosis: DVT, Dementia, Afib with RVR, systolic heart failure, anemia, weakness, BPH, daily alcohol consumption, Rhabdomyolysis Medicare Certification Statement: I certify that [facility] care is medically necessary on a continuing basis for any of the conditions for which she/he is receiving care during hospitalization. Notify PCP of admission and forward orders to primary provider for signature. Weight on admission and: Daily Call PCP immediately if weight increases by: 2 kg Other Notification Orders: Call PCP immediately if patient develops dyspnea, chest pain/tightness or edema. House Bowel Program: Yes Additional Bowel Program Orders: If no BM after 2 days, nurse may give M.O.M. 30ml PO PRN and/or ducolax Supp 1 TX and/or BONI 250mg P.O., and/or senna 1-2 tabs PO. On day 3 nurse may give repeat above order until residents constipation is resolved. Annual Influenza Vaccine (between Jul 18 and February 14): Yes Two-step PPD per [facility] [id number] or approved exception documents: Yes Treatments & Other Orders: pt was found to have bilateral lower extremities DVT, now he is on Eliquis, continue followup with his PCP and SNF health provider for continuing management. Pt has Afib RVR, pt is on digoxin now, 3 days per week, because of his CKD for dosage adjustment, his HR is controlled now. advise followup with his PCP and SNF health provider for continuing of management, and recheck Digoxin therapeutic level as well. Medication Orders: PLEASE REFER TO THE DISCHARGE MEDICATION LIST. Insulin Orders?: No - Medications New Prescriptions: Apixaban [Eliquis] 5 mg PO BID #30 tablet Ferrous Gluconate [Fergon] 324 mg PO DAILYWM #15 tablet Tamsulosin [Flomax] 0.4 mg PO DAILY #15 capsule Digoxin [Lanoxin] 125 mcg PO TUTHSA #10 tablet Metoprolol Tartrate [Lopressor] 37.5 mg PO BID #30 tablet Vitamin [Trinatal Rx 1] 1 tab PO DAILYWM #15 tablet Thiamine [Vitamin B-1] 100 mg PO DAILY #15 tablet - Diet Type: Geriatric Texture: Mech soft Liquids: Thin May have monthly special meal: Yes - Therapies | Activity Therapy: Evaluation | Treat if indicated: PT, OT Rehabilitation Potential: Maximize functional status Activity: Activity as Tolerated"
--- NOTE | 2020-07-18 12:10 | DISCHARGE SUMMARY ---
Discharge Summary Admit Date: 07/06/20 Discharge Date: 07/18/20 Discharging Provider: Eulalio Martin Condition at Discharge: Stable Discharge Disposition: SNF DC/Xfer Discharge Facility Name: [facility] - DIAGNOSES Discharge Diagnoses with Status of Each Condition: (1) DVT of lower extremity, bilateral pt is prescribed Eliquis,continue management by his PCP (2) Dementia stable (3) Atrial fibrillation with RVR stable, The heart rate is now controlled, pt is prescribed metoprolol and Digoxin and eliquis as well. followup with PCP (4) Acute kidney injury superimposed on chronic kidney disease Stable (5) Systolic heart failure stable, pt is prescribed metoprolol and digoxin (6) Anemia stable, pt is prescribed iron pill. (7) Weakness stable. pt is d/c to SNF (8) BPH (benign prostatic hyperplasia) stable, pt is prescribed tamsulosin (9) Alcohol consumption of more than two drinks per day stable, No signs of withdrawal during this hospitalization. He is prescribed daily oral thiamine and (10) Rhabdomyolysis resolved (11) Hyponatremia Resolved (12) Hypotension Resolved - [facility] History of Present Illness: refer from Dr Bryan's HPI on 07/06/2020 This is a pleasant 84-year-old male who is quite hard of hearing and has a past medical history significant for GI bleed about 1 year ago where he was found to have a gastric ulcer, CKD stage III who presents today complaining of feeling sick and weak since this past Friday. He states he been doing quite well up until Friday when he started having decreased energy and some abdominal discomfort. He reports that he has been having diarrhea on and off for the past few months but not recently. He thinks he ate something bad on Friday which caused him to feel sick and have a decreased appetite. He reports he has not been eating or drinking much since then and he also has not exercised as much as he used to which has caused him to become progressively weak. He denies any focal deficits just generalized weakness. He reports no chest pain but he does feel like he has been dyspneic over the past week. He also reports a productive cough. He has noted that his legs have also been edematous over the past week or so. Denies feeling dizzy or lightheaded. Denies any recent bleeding or blood in his stool. Reports no palpitations. He denies any cardiac history including arrhythmias. He reports he does not take any medications. He lives at home alone but he reports he is independent with ADLs and he normally ambulates on his own without a walker or cane. He did tell the emergency department provider that he was complaining of pain all over and that his skin would hurt even when he would touch his on mattress. He denied any pain to me. In the emergency department, he was found to be afebrile temperature of 36.6 C. He was tachycardic with heart rates in the 140s and he was in atrial fibrillation. His blood pressure was 120/98. He was tachypneic with respiratory rate in the low 20s but he was saturating 97% on room air. Labs were significant for a BUN of 32, creatinine of 2.4, lactic acid of 2.3, CK of 3258, troponin of 179.8, a BNP of 987. His EKG revealed atrial relation with rapid ventricular response and Q waves in the inferior leads. This is changed compared to his prior EKG which was a sinus rhythm. Given the above findings, medicine was consulted for admission. I did discuss goals of care with the patient and he would like to be a DNR. He states that he does not want any aggressive measures and would not want any sort of interventions but he is agreeable to medical management. - HOSPITAL COURSE Hospital Course: Patient was admitted for Progressively weakness. Patient was found to have BUN of 32, creatinine of 2.4, lactic acid of 2.3, CK of 3258, troponin of 179.8, a BNP of 987. His EKG revealed atrial relation with rapid ventricular response. Ultrasound of bilateral lower extremity find the patient has DVT in bilateral lower extremity. Echo review mild reduced EF and mild abnormal right ventricular pressure. Patient was treated With intravenous IV fluids, Eliquis, metoprolol, digoxin. After treatment, patient become hemodynamic stable. Acute kidney injury is resolved, creatinine as his baseline. Patient heart rate was controlled after treatment.Patient had physical therapist occupational therapist evaluation and treatment, and recommended patient to be d/c to SNF. Patient was DC to the SNF with a hemodynamic stable condition - ALLERGIES Allergies/Adverse Reactions: Allergies Allergy/AdvReac Type Severity Reaction Status Date / Time Penicillins Allergy Unknown Verified 09/08/14 07:36 - MEDICATIONS Home Medications: Ambulatory Orders Medication Instructions Recorded Confirmed Zolpidem [Ambien] 5 mg PO HS PRN 01/27/19 07/08/20 Apixaban [Eliquis] 5 mg PO BID #30 tablet 07/18/20 Digoxin [Lanoxin] 125 mcg PO TUTHSA #10 tablet 07/18/20 Ferrous Gluconate [Fergon] 324 mg PO DAILYWM #15 tablet 07/18/20 Metoprolol Tartrate [Lopressor] 37.5 mg PO BID #30 tablet 07/18/20 Vitamin [Trinatal Rx 1] 1 tab PO DAILYWM #15 tablet 07/18/20 Tamsulosin [Flomax] 0.4 mg PO DAILY #15 capsule 07/18/20 Thiamine [Vitamin B-1] 100 mg PO DAILY #15 tablet 07/18/20 - PHYSICAL EXAM AT DISCHARGE General Appearance: positive: No acute distress, Alert. negative: Anxious, Lethargic Eyes Bilateral: positive: Normal inspection, PERRL, No lid inflammation ENT: positive: ENT inspection nml, No signs of dehydration. negative: Purulent nasal drainage, Dry mucous membranes Neck: positive: Nml inspection, Thyroid nml, Trachea midline. negative: Thyromegaly, Stiff neck, Tracheal deviation Respiratory: positive: Chest non-tender, No respiratory distress. negative: Wheezes, Rales, Rhonchi Cardiovascular: positive: No murmur, No gallop. negative: Tachycardia, PMI displaced laterally, Systolic murmur, Diastolic murmur Peripheral Pulses: positive: 2+ Abdomen: positive: Non-tender, No organomegaly, Nml bowel sounds, No distention. negative: Tenderness, Guarding, Rebound Back: positive: Nml inspection. negative: CVA tenderness (R), CVA tenderness (L) Skin: positive: Color nml, No rash, Warm, Dry. negative: Cyanosis, Diaphoresis, Pallor Extremities: positive: Non-tender, Full ROM, Nml appearance. negative: Calf tenderness, Flaquito's sign/cords Neurologic/Psychiatric: positive: Motor nml, Sensation nml. negative: Weakness, Sensory loss, Facial droop, Slurred/abnml speech, Depressed mood/affect - LABS Result Diagrams: 07/18/20 03:32 07/18/20 03:32 - FOLLOW UP Follow Up: pt is d/c to [facility] pt was found to have bilateral lower extremities DVT, now he is on Eliquis, continue followup with his PCP and SNF health provider for continuing management. Pt has Afib RVR, pt is on digoxin now, 3 days per week, because of his CKD for dosage adjustment, his HR is controlled now. advise followup with his PCP and SNF health provider for continuing of management, and recheck Digoxin therapeutic level as well. - TIME SPENT Time Spent in Discharge (Minutes): 30
== END 2020-07-18 12:10 | DRG 300 ==
LOC: EDUNIT# → EDSEX → ED 21:41 → MS3 23:52 → MS2 07-09 14:21
PROVIDERS: ADMIT Internal Medicine; ATTEND Internal Medicine Hematology & Oncology
DX: I82.431 Acute embolism and thrombosis of right popliteal vein (principal); R53.1 Weakness; I10 Essential (primary) hypertension; N17.9 Acute kidney failure, unspecified; I13.0 Hypertensive heart and chronic kidney disease with heart failure and stage 1 through stage 4 chronic kidney disease, or unspecified chronic kidney disease; I50.20 Unspecified systolic (congestive) heart failure; M62.82 Rhabdomyolysis; E87.1 Hypo-osmolality and hyponatremia; F05 Delirium due to known physiological condition; I24.8 Other forms of acute ischemic heart disease; E51.2 Wernicke's encephalopathy; I82.451 Acute embolism and thrombosis of right peroneal vein; I82.442 Acute embolism and thrombosis of left tibial vein; I82.452 Acute embolism and thrombosis of left peroneal vein; F03.90 Unspecified dementia, unspecified severity, without behavioral disturbance, psychotic disturbance, mood disturbance, and anxiety; I48.91 Unspecified atrial fibrillation; I69.319 Unspecified symptoms and signs involving cognitive functions following cerebral infarction; I08.1 Rheumatic disorders of both mitral and tricuspid valves; N18.3 Chronic kidney disease, stage 3 (moderate); D50.9 Iron deficiency anemia, unspecified; N40.1 Benign prostatic hyperplasia with lower urinary tract symptoms; N39.9 Disorder of urinary system, unspecified; I95.9 Hypotension, unspecified; H91.90 Unspecified hearing loss, unspecified ear; Z66 Do not resuscitate; E86.0 Dehydration; Z74.09 Other reduced mobility; Z03.818 Encounter for observation for suspected exposure to other biological agents ruled out; Z63.8 Other specified problems related to primary support group; Z72.89 Other problems related to lifestyle; Z79.899 Other long term (current) drug therapy; Z87.11 Personal history of peptic ulcer disease; Z87.891 Personal history of nicotine dependence
CPT/HCPCS: 36415; 70450; 71045; 80048; 80053; 80162; 81001; 82550; 82553; 82607; 82746; 83540; 83605; 83690; 83735; 83880; 84100; 84443; 84466; 84484; 85025; 87086; 93005; 93306; 93970; 96374; 97116; 97161; 97166; 97530; 99284; 99285; A9270; J1650; J7120; U0004; 81003

== ENCOUNTER 2020-07-18 12:14 | Outpatient (CLI) | payer MEDICARE | END 2020-07-18 12:15 | LOC: EMS 12:14 | PROVIDERS: ATTEND Surgery | DX: F03.90 Unspecified dementia, unspecified severity, without behavioral disturbance, psychotic disturbance, mood disturbance, and anxiety (principal); I82.403 Acute embolism and thrombosis of unspecified deep veins of lower extremity, bilateral; N17.9 Acute kidney failure, unspecified; M62.82 Rhabdomyolysis; E87.1 Hypo-osmolality and hyponatremia | CPT/HCPCS: A0425; A0428 ==